=== PATIENT | female | born 1950 | race Caucasian/White ===

== ENCOUNTER 2017-12-24 21:44 | Inpatient (IN) ==
[2017-12-25] MEDS ORDERED: Potassium Chloride Elixir 20 MEQ/15 ML UDC PO ONE ×2 (00:17→01:53)
[2017-12-25] MEDS ORDERED: Naloxone 0.4 MG/ML INJ IVP PRN (00:20)
[2017-12-25] MEDS ORDERED: *HR* Heparin 5,000 UNIT/ML VIAL IVP PRN ×2 (00:22)
[2017-12-25] MEDS ORDERED: Heparin 25,000 UNIT/500 ML D5W 25,000 UNIT/500 ML BAG IVC SCH (00:30)
--- NOTE | 2017-12-25 00:38 | Internal Med History&Physical ---
Date of Encounter: 12/25/17 Time of Encounter: 12:15 Internal Medicine - H&P: HPI Chief complaint: SOB Admitted From: Home History of present illness: Ms. Felix is a 67 year old female with past history COPD on nocturnal oxygen and CAD s/p CABG in 1999, presented to the outside hospital emergency department with 5 day history of shortness of breath and cough. Progressively worsening, denies significant sputum production. No fever/chills or N/V. Associated with intermittent chest discomfort that was more pronounced with breathing and coughing. Sharp, substernal, non-radiating, no aggravating factors. Denies any palpitation, orthopnea, PND, or leg swelling. No GI/ symptoms. At the outside emergency department, she was afebrile and hemodynamically stable. Initial investigation showed elevated troponin of 0.7 and EKG showing normal sinus rhythm without ST-T changes. Hemoglobin was 8 (it appears to range from 8.8-13) but denies any melena, hematemesis, hematochezia, or bright red blood per rectum. CXR was reported to be clear (report yet to be faxed). Cardiology was consulted from the ED and the decision was made to start heparin drip in addition to noting the patient with aspirin. She was also noted to be slightly wheezy as well hence was given IV Solu-Medrol and bronchodilator. Patient was subsequently admitted to [facility] for further management. At the time of my interview, patient appears slightly somnolent but easily arousable and appropriate. It was noted that prior to the transfer she was given unknown dose of Flexeril. Past Med Surg Social Fam HX - Past Medical History Medical history: arthritis, cardiomyopathy, CHF, COPD, coronary artery disease, fibromyalgia, GERD, hyperlipidemia, hypertension, myocardial infarction, osteoporosis, RA, renal disease Additional medical history: irregular heart Psychiatric history: anxiety, depression, panic disorder, PTSD, other - Past Surgical History Surgical History: angioplasty/stent, , cholecystectomy, coronary bypass (CABG), knee replacement, orthopedic, other, pacemaker/AICD, other - Social History Smoking Status: Current some day smoker Packs per day: 1/2 Smokeless Tobacco Status: No Alcohol use: none Drug use: none Internal Medicine - H&P: Meds Albuterol Neb [Proventil Neb] 2.5 mg IH TID PRN 02/25/16 [History] Alprazolam [Xanax] 2 mg PO TID 02/25/16 [History] Aspirin 81 mg PO DAILY 02/25/16 [History] Cholecalciferol (D-3) [Vitamin D] 2,000 unit PO DAILY 02/25/16 [History] Clopidogrel [Plavix] 75 mg PO DAILY 02/25/16 [History] Colestipol HCl [Colestid] 2 gm PO BID 02/25/16 [History] Esomeprazole Magnesium [Nexium] 40 mg PO BID 02/25/16 [History] Fluticasone Propionate Nasal [Flonase] 50 mcg NS DAILY 02/25/16 [History] Fluticasone Propionate [Flovent Hfa] 2 puff IH BID 02/25/16 [History] GuaiFENesin/Dextromethorphan [Mucinex Dm ER 600-30 mg Tablet] 1 each PO Q12H PRN 02/25/16 [History] Ipratropium/Albuterol Sulfate [Combivent Respimat Inhal [place]] 2 puff IH DAILY 02/25/16 [History] Oxybutynin Chloride [Ditropan Xl] 10 mg PO DAILY 02/25/16 [History] Potassium Chloride [K-Tab ER] 20 meq PO DAILY 02/25/16 [History] Promethazine [Phenergan] 12.5 - 25 mg PO BID PRN 02/25/16 [History] Vitamin B Complex 1 tab PO DAILY 02/25/16 [History] hydroCHLOROthiazide [Hydrochlorothiazide] 25 mg PO DAILY 02/25/16 [History] OxyCODONE Immed Rel [Roxicodone 10 MG] 10 mg PO TID PRN #20 tablet 02/29/16 [Rx] predniSONE [PredniSONE] 10 mg PO DAILY #50 tablet 02/29/16 [Rx] Atorvastatin [Lipitor] 40 mg PO HS 04/27/16 [History] Cyanocobalamin (B-12) [Vitamin B12] 1,000 mcg PO DAILY 04/27/16 [History] Folic Acid 1 mg PO DAILY 04/27/16 [History] Lactose-Reduced Food [Boost] 237 ml PO TID 04/27/16 [History] Loratadine [Claritin] 10 mg PO DAILY 12/13/16 [History] [place]-3/Dha/Epa/Fish Oil [Fish Oil 1,000 mg Softgel] 1,000 mg PO DAILY 04/27/16 [History] cloNIDine HCl [CloNIDine HCl] 0.1 mg PO DAILY 04/27/16 [History] LORazepam [Ativan] 0.5 mg PO ONCE #4 tablet 06/10/16 [Rx] Ondansetron [Zofran] 4 mg PO Q8HR PRN #90 tablet 07/08/16 [Rx] OxyCODONE Immed Rel [Roxicodone 5 MG] 5 mg PO BID PRN #20 tablet 07/08/16 [Rx] 3 Allergy/AdvReac Type Severity Reaction Status Date / Time azithromycin Allergy See Verified 06/10/16 09:14 Comments clarithromycin [From Biaxin] Allergy See Verified 06/10/16 09:14 Comments fluconazole [From Diflucan] Allergy See Verified 06/10/16 09:14 Comments Hydromorphone [From Dilaudid] Allergy Hives Verified 06/10/16 09:14 Iodinated Contrast- Oral and Allergy See Verified 06/10/16 09:14 IV Dye Comments [Iodinated Contrast Media - IV Dye] morphine Allergy See Verified 06/10/16 09:14 Comments propoxyphene Allergy See Verified 06/10/16 09:14 [From Darvocet-N] Comments naproxen AdvReac See Verified 06/10/16 09:14 Comments All Systems PM: A 10-system review of systems was performed and is negative for pertinent findings except as documented above in the HPI. - Constitutional Vitals: Temp Pulse Resp BP Pulse Ox 98.3 F 86 18 138/72 97 12/24/17 23:45 12/24/17 23:45 12/24/17 23:45 12/24/17 23:45 12/24/17 23:45 Exam: General: Alert and oriented, somnolent but easily arousable HEENT:EOM, pupils equal, round and reactive. Cardiovascular:Normal S1 & S2, No JVD. Pulse regular. Lungs: scattered wheezes bilaterally Abdomen:Soft, non-tender, no rigidity. Extremities:No deformity or swelling Neurological: Non-focal, moving all 4 limbs spontaneously and appropriately Skin:Normal color, no rash, no lesions. Pulses:Carotid and radial pulses normal +2. Rest of the physical exam is non contributory - Assessment and plan (1) NSTEMI (non-ST elevated myocardial infarction) Current Visit: Yes Status: Acute Assessment and plan: Presented with progressive shortness of breath with intermittent chest pain, previous history of CABG in 1999 initial troponin elevated at 0.[address] elevation on EKG loaded with ASA at the ED cardiology on board, started heparin gtt per recommendation trend troponin bb, statin echocardiogram check A1c and lipid panel tomorrow (2) COPD exacerbation Current Visit: Yes Status: Acute Assessment and plan: in addition to her symptoms, had wheezing on exam without focal consolidation on CXR (verbal report only) continue to be wheezing here will repeat CXR steroids, bronchodilators Q4+PRN she was given flexeril at the OSH which is probably the reason for her mild somnolence but will check VBG to rule out hypercapnia (3) Anemia Current Visit: No Status: Acute Assessment and plan: wide range of Hb noted for the last 2 years but the most recent ones were in the range of 10-12 hemodynamically stable, no symptoms or signs of GIB but will get FOBT since she is on heparin gtt too monitor Hb Qualifiers: Anemia type: unspecified type Qualified Code(s): D64.9 - Anemia, unspecified (4) Hypokalemia Current Visit: No Status: Acute Assessment and plan: replete by mouth (5) DVT prophylaxis Current Visit: No Status: Acute Assessment and plan: heparin gtt - Time Spent With Patient Total time spent is greater than 50% in coordination of care (as documented) at patient's floor/unit and/or counseling patient:
[2017-12-25] MEDS ORDERED: Ipratropium/Albuterol Neb 3 ML IH PRN (00:43)
[2017-12-25] MEDS ORDERED: Furosemide 40 MG/4 ML VIAL IVP ONE (01:20)
[2017-12-25 01:38] LABS: Prothrombin Time 11.6 Seconds (9.4-12.1)
[2017-12-25 01:43] LABS: BUN/Creatinine Ratio 16 (6-26); Blood Urea Nitrogen 10 mg/dL (8-23); Carbon Dioxide 25 mEq/L (23-29); Chloride 93 mEq/L (98-107); Chol/HDL Ratio 2.4 (0-4.9); Cholesterol 136 mg/dL (< 200); Glucose 145 mg/dL (70-105); HDL Cholesterol 57 mg/dL (40-59); Heparin anti-factor XA UFH 1.08 IU/mL (0.30-0.70); LDL Cholesterol,Calculated 67 mg/dL (0-99); Magnesium 1.6 mg/dL (1.6-2.6); Osmolality,Calculated 268 (280-300); Potassium 3.4 mEq/L (3.5-5.1); Sodium 128 mEq/L (136-145); Triglycerides 62 mg/dL (< 150); eGFR For Non-African Americans > 60 (> 60)
[2017-12-25 01:43] LABS: VBG HCO3 28 mEq/L (21-27); VBG PCO2 37 mmHg (41-51); VBG PH 7.49 pH Units (7.32-7.42); VBG PO2 115 mmHg (25-50)
[2017-12-25 02:28] LABS: Basophils % 0.1 %; Hematocrit 28.3 % (35.3-44.9); Hemoglobin 8.4 g/dL (11.5-15.4); Immature Granulocytes % 0.6 % (0-4); Lymphocytes # 0.6 K/mcL (0.6-4.6); Lymphocytes % 4.1 %; Mean Corpuscular HGB Conc 29.7 g/dL (31.6-35.5); Mean Corpuscular Hemoglobin 23.3 pg (28.0-33.3); Mean Corpuscular Volume 78.6 fL (83.0-100.0); Mean Platelet Volume 9.5 fL (9.4-12.4); Monocytes # 0.1 K/mcL (0.0-1.3); Monocytes % 0.4 %; Neutrophils # 13.5 K/mcL (1.6-8.9); Platelet Count 437 K/mcL (140-400); Red Cell Distribution Width 19.9 % (11.5-14.5); Segmented Neutrophils % 94.8 %
[2017-12-25] MEDS: Ipratropium/Albuterol Neb 3 ML IH SCH ×6 (04:04→23:59)
[2017-12-25] MEDS ORDERED: Nitroglycerin 0.4 MG TAB.SUBL SL PRN (07:37)
[2017-12-25] MEDS ORDERED: Nitroglycerin 0.4 MG TAB.SUBL SL ONE (07:40)
[2017-12-25] MEDS: ALPRAZolam 1 MG TABLET PO SCH ×3 (08:27→20:56)
[2017-12-25] MEDS: Aspirin Enteric Coated 81 MG Tablet PO SCH (08:27)
[2017-12-25] MEDS: MethylPREDNISolone 40 MG/ML VIAL IVP SCH ×2 (08:27→21:06)
--- NOTE | 2017-12-25 09:51 | Cardiology Consult Note ---
Date of Encounter: 12/25/17 Time of Encounter: 09:50 Assessment and Plan (1) Elevated troponin Current Visit: Yes Status: Acute Troponin at [facility] 0.7. Troponins at [facility] 0.13, 0.10 in setting of anemia, COPD exacerbation. Demand ischemic vs NSTEMI. Pt tells me most of her pain is mid back pain--she is asking for pain medications and injections. States she intermittently has chest pain from her back. EKG without acute findings. On Heparin gtt, ASA, Statin. Unclear why pt is not on BB--reportedly stopped by PCP in the past. Would recommend adding BB prior to d/c. HGB 8.4--usually 10-12 range, but as low as 8.8 in 2016. Agree with FOB ordered by primary team. TTE to evaluate structure and function. Most recent TTE in 2016 EF was preserved. Further recs pending TTE results, FOB results, HGB trend. Medical management for now. (2) CAD (coronary artery disease) Current Visit: Yes Status: Acute Hx of 1v CABG (TEREZA-RCA) at [facility] with subsequent PCI to RCA. No recent ischemic evaluation. As above, TTE with further recs to follow. ASA, Statin. BB reportedly stopped by PCP in the past, unclear why. Currently being treated for COPD exacerbation. Recommend adding BB prior to d/c. Qualifiers: Coronary Disease-Associated Artery/Lesion type: [place] artery [place] vs. transplanted heart: [place] heart Associated angina: angina presence unspecified Qualified Code(s): I25.10 - Atherosclerotic heart disease of [place] coronary artery without angina pectoris Discussion w patient/family: The assessment and plan as outlined above was discussed with the patient and/or family members who expressed understanding and agreement. All questions were answered. Thank you for involving us in the care of your patient. Please call with any questions. I will discuss all the above with Dr. Curiel and make changes as necessary. History of Present Illness Consult date: 12/25/17 Consult reason: elevated troponin Chief complaint: dyspnea, chest pain, back pain History of present illness: Ms. Felix is a 67 year old female with PMH of CAD s/p 1v CABG (1999) & PCI ( 2003), SSS s/p PPM (2008), COPD, DMII, and GERD. Presented to [facility] in [place] for complaints of 2 weeks progressive dyspnea associated with constant mid back stabbing pain and intermittent chest discomfort that worsens with movement. Denies LE edema. Troponin at [facility] 0.7 and troponin at [facility] 0.13, 0.10. HGB 8.4 (Was 10.5 in September, but has been as low as 8.8 in 2016). Pt denies active bleeding issues. Cardiology consulted for further recs. Pt lying flat in bed, no distress. CXR Mild left basilar opacities, favored to represent atelectasis. Borderline cardiomegaly and pulmonary vascular congestion. Hiatal hernia. Hospitalist is treating for COPD exacerbation as well. Prior CV studies: TTE 08/26/06: LVEF 60%, mild-moderately dilated LA, mild TR TTE 01/14/08: LVEF 60%, mildly dilated LA, mild MR TTE 11/19/15: LVEF 60-65%. Moderate DD. Normal wall motion. Pacer check 12/24/15: normal dual chamber PPM, no events, battery longevity 5.7 years. Past Med Surg Social Fam HX - Past Medical History Medical history: arthritis, COPD, coronary artery disease, fibromyalgia, GERD, hyperlipidemia, hypertension, myocardial infarction, osteoporosis, RA, renal disease Additional medical history: irregular heart Psychiatric history: anxiety, depression, panic disorder, PTSD, other - Past Surgical History Surgical History: angioplasty/stent, , cholecystectomy, coronary bypass (CABG), knee replacement, orthopedic, other, pacemaker/AICD, other - Social History Smoking Status: Current some day smoker Packs per day: 1/2 Smokeless Tobacco Status: No Alcohol use: none Drug use: none Medications and Allergies Albuterol Neb [Proventil Neb] 2.5 mg IH TID PRN 02/25/16 [History] Alprazolam [Xanax] 2 mg PO TID 02/25/16 [History] Aspirin 81 mg PO DAILY 02/25/16 [History] Cholecalciferol (D-3) [Vitamin D] 2,000 unit PO DAILY 02/25/16 [History] Clopidogrel [Plavix] 75 mg PO DAILY 02/25/16 [History] Colestipol HCl [Colestid] 2 gm PO BID 02/25/16 [History] Fluticasone Propionate Nasal [Flonase] 50 mcg NS DAILY 02/25/16 [History] Ipratropium/Albuterol Sulfate [Combivent Respimat Inhal [place]] 2 puff IH DAILY 02/25/16 [History] Oxybutynin Chloride [Ditropan Xl] 10 mg PO DAILY 02/25/16 [History] hydroCHLOROthiazide [Hydrochlorothiazide] 25 mg PO DAILY 02/25/16 [History] Atorvastatin [Lipitor] 40 mg PO HS 04/27/16 [History] Cyanocobalamin (B-12) [Vitamin B12] 1,000 mcg PO DAILY 04/27/16 [History] Folic Acid 1 mg PO DAILY 04/27/16 [History] Lactose-Reduced Food [Boost] 237 ml PO TID 04/27/16 [History] Loratadine [Claritin] 10 mg PO DAILY 04/27/16 [History] [place]-3/Dha/Epa/Fish Oil [Fish Oil 1,000 mg Softgel] 1,000 mg PO DAILY 04/27/16 [History] cloNIDine HCl [CloNIDine HCl] 0.1 mg PO DAILY PRN 04/27/16 [History] ALPRAZolam [Xanax 1 MG Tablet] 1 - 2 mg PO DAILY PRN 12/25/17 [History] Cyclobenzaprine [Flexeril] 10 mg PO TID PRN 12/25/17 [History] Etanercept [Enbrel] 50 mg SQ QWEEK 12/25/17 [History] Gabapentin [Neurontin] 800 mg PO QID 12/25/17 [History] Lisinopril [Zestril] 5 mg PO DAILY 12/25/17 [History] Methotrexate Sodium/PF [Methotrexate 25 mg/ml Vial] 20 mg IM QWEEK 12/25/17 [ History] Mirtazapine [Remeron] 45 mg PO HS 12/25/17 [History] Pantoprazole Sodium [Protonix] 40 mg PO DAILY 12/25/17 [History] Paroxetine HCl [Paxil] 40 mg PO DAILY 12/25/17 [History] Potassium Chloride [K-Tab ER] 10 meq PO BID 12/25/17 [History] amLODIPine [Norvasc] 5 mg PO DAILY 12/25/17 [History] metFORMIN [Glucophage] 500 mg PO DAILY 12/25/17 [History] 3 Allergy/AdvReac Type Severity Reaction Status Date / Time azithromycin Allergy See Verified 06/10/16 09:14 Comments clarithromycin [From Biaxin] Allergy See Verified 06/10/16 09:14 Comments fluconazole [From Diflucan] Allergy See Verified 06/10/16 09:14 Comments Hydromorphone [From Dilaudid] Allergy Hives Verified 06/10/16 09:14 Iodinated Contrast- Oral and Allergy See Verified 06/10/16 09:14 IV Dye Comments [Iodinated Contrast Media - IV Dye] morphine Allergy See Verified 06/10/16 09:14 Comments propoxyphene Allergy See Verified 06/10/16 09:14 [From Darvocet-N] Comments naproxen AdvReac See Verified 06/10/16 09:14 Comments All Systems Review: The remainder of the systems were reviewed and are negative - Cardiovascular Cardiovascular: chest pain at rest, chest pain with exertion, dyspnea at rest, dyspnea on exertion - Respiratory Respiratory: dyspnea Physical Examination Vital Signs, Last 4 Hours Temp Pulse Resp BP Pulse Ox 12/25/17 07:26 16 113/64 94 12/25/17 06:56 98.1 F 82 18 113/64 94 Vital Signs Temp Pulse Resp BP Pulse Ox 12/25/17 07:26 16 113/64 94 12/25/17 06:56 98.1 F 82 18 113/64 94 12/25/17 04:27 98.1 F 75 18 109/73 95 12/25/17 04:07 16 100 12/24/17 23:45 98.3 F 86 18 138/72 97 Intake and Output 12/24/17 12/25/17 12/25/17 23:59 07:59 15:59 Intake Total 0 / 0 Output Total 0 / 0 Balance 0 / 0 Intake: IV Fluids Heparin 25,000 UNIT/500 ML D5W 25,000 unit In 500 ml @ 12 UNIT /KG/HR 15.785 mls/hr IVC .Q24H LATOSHA Rx#:[id number] Oral 0 / 0 Output: Urine 0 / 0 Other: # Voids 1 Weight 65.771 kg General: Conversant HEENT: Atraumatic, Normocephaly, Mucus Membranes Moist Neck: No JVD, Normal carotid pulses Cardiac: Reg Rate and Rhythm, Normal S1 and S2, No Murmur Lungs: Other (diminished) Neuro: Alert and responsive, No focal deficits noted Abdomen: Soft, Non-Tender Skin: No rashes noted on visualized skin Musculoskeletal: No Chest Wall Tenderness Extremities: No Clubbing, No Cyanosis, No Edema, Normal Pulses Results 12/25/17 01:11 12/25/17 01:11 Lab Results 12/25/17 12/25/17 12/25/17 01:11 01:11 01:11 WBC 14.3 H Hgb 8.4 L Hct 28.3 L Plt Count 437 H INR 1.0 Sodium Potassium Chloride Carbon Dioxide BUN Creatinine Glucose Calcium Magnesium Troponin I 0.13 H* B-Natriuretic Peptide 12/25/17 12/25/17 12/25/17 01:11 01:11 08:20 WBC Hgb Hct Plt Count INR Sodium 128 L Potassium 3.4 L Chloride 93 L Carbon Dioxide 25 BUN 10 Creatinine 0.62 Glucose 145 H Calcium 9.0 Magnesium 1.6 Troponin I 0.10 H* B-Natriuretic Peptide 99 Short CBC 12/25/17 Range/Units 01:11 WBC 14.3 H (4.3-11.1) K/mcL Hgb 8.4 L (11.5-15.4) g/dL Hct 28.3 L (35.3-44.9) % Plt Count 437 H (140-400) K/mcL Neutrophils # 13.5 H (1.6-8.9) K/mcL BMP 12/25/17 Range/Units 01:11 Sodium 128 L (136-145) mEq/L Potassium 3.4 L (3.5-5.1) mEq/L Chloride 93 L (98-107) mEq/L Carbon Dioxide 25 (23-29) mEq/L BUN 10 (8-23) mg/dL Creatinine 0.62 (0.60-1.20) mg/dL Glucose 145 H (70-105) mg/dL Calcium 9.0 (8.6-10.3) mg/dL Cardiac Enzymes 12/25/17 12/25/17 Range/Units 08:20 01:11 Troponin I 0.10 H* 0.13 H* (< 0.04) ng/mL Impressions Chest X-Ray 12/25/17 00:40 IMPRESSION: 1. Mild left basilar opacities, favored to represent atelectasis. 2. Borderline cardiomegaly and pulmonary vascular congestion. 3. Hiatal hernia. D/ / Sean Mckeon MD / Sean Mckeon MD Interpreting Provider: Sean Mckeon MD Active Medications Albuterol/Ipratropium (Duoneb) 3 ml IH [id number] LATOSHA Stop: 06/26/18 04:01 Last Admin: 12/25/17 07:26 Dose: 3 ml Albuterol/Ipratropium (Duoneb) 3 ml IH [id number] PRN PRN Reason: Shortness Of Breath/Wheezing Stop: 06/26/18 00:44 Alprazolam (Xanax) 2 mg PO TID LATOSHA Stop: 06/26/18 09:01 Last Admin: 12/25/17 08:27 Dose: 2 mg Aspirin (Aspirin Ec) 81 mg PO DAILY LATOSHA Stop: 06/26/18 09:01 Last Admin: 12/25/17 08:27 Dose: 81 mg Atorvastatin Calcium (Lipitor) 80 mg PO HS LATOSHA Stop: 06/26/18 21:01 Heparin Sodium (Porcine) (Heparin) 3,900 unit 60 unit/kg (3900 unit) IVP Q6HR PRN PRN Reason: SEE COMMENTS Stop: 06/26/18 00:23 Heparin Sodium (Porcine) (Heparin) 2,000 unit 30 unit/kg (2000 unit) IVP Q6H PRN PRN Reason: SEE COMMENTS Stop: 06/26/18 00:23 Heparin Sodium/Dextrose (Heparin 25,000 Unit/500 Ml D5w) 25,000 unit in 500 mls @ 15.785 mls/hr IVC .Q24H LATOSHA; 12 UNIT/KG/HR PRN Reason: Protocol Stop: 06/26/18 00:31 Last Titration: 12/25/17 09:37 Dose: 9 unit/kg/hr, 11.839 mls/hr Methylprednisolone (Solu-Medrol) 40 mg IVP BID LATOSHA Stop: 06/26/18 09:01 Last Admin: 12/25/17 08:27 Dose: 40 mg Naloxone HCl (Narcan) 0.4 mg IVP Q2MIN PRN PRN Reason: SEE COMMENTS Stop: 06/26/18 00:21 Nitroglycerin (Nitroglycerin) 0.4 mg SL Q5MIN PRN PRN Reason: Chest Pain Stop: 06/26/18 07:38 Last Admin: 12/25/17 07:43 Dose: 0.4 mg Oxycodone/Acetaminophen (Percocet 5/325) 1 each PO Q6HR PRN PRN Reason: Moderate Pain Stop: 06/26/18 08:04 - Imaging and Cardiology Echo: report reviewed - EKG Interpretation EKG results cardiology: personally reviewed Consult Discharge Plan - Plan Referrals: Franci Davenport, [employer] [Primary Care Provider] -
[2017-12-25] MEDS: Metoprolol XL (24 HR) Succ 25 MG TAB.ER.24H PO SCH (12:27)
[2017-12-25] MEDS: *HR* OxyCODONE/APAP 5/325 TABLET PO PRN ×2 (12:29→20:56)
[2017-12-25] MEDS ORDERED: Albuterol 2.5 MG/3 ML NEBULIZER IH PRN (13:18)
[2017-12-25] MEDS ORDERED: cloNIDine HCl 0.1 MG TABLET PO PRN (13:18)
[2017-12-25 13:49] LABS: Estimated Average Glucose 131 mg/dl; Hemoglobin A1C 6.2 %
[2017-12-25] MEDS ORDERED: NON-FORMULARY MEDICATION 1 EACH EACH (Lactose-Reduced Food [Boost] 237 ML) PO SCH (15:00)
--- NOTE | 2017-12-25 15:53 | Event Note ---
Date of Encounter: 12/25/17 Time of Encounter: 15:51 Chest pain improved after she received nitroglycerin this morning. Complains of intermittent pleuritic pain and severe back pain which is chronic for her. On examination she has tenderness in the right anterior chest wall over the lower ribs. Patient also appears to be having increasing anxiety. She does have a history of posttraumatic stress disorder. She reports cough. History of COPD/asthma. Does have leukocytosis. Will treat empirically with a short course of antibiotics for bronchitis. Cardiology consult appreciated. Troponins are flat. Heparin has been stopped due to anemia. We will check urine microscopy and culture if needed.
[2017-12-25] MEDS: *HR* Heparin 5,000 UNIT/ML VIAL SQ SCH ×2 (15:54→21:06)
[2017-12-25] MEDS: Gabapentin 400 MG CAPSULE PO SCH ×2 (17:04→20:56)
[2017-12-25] MEDS: Famotidine 20 MG TABLET PO SCH (17:04)
[2017-12-25] MEDS: Mirtazapine 15 MG TABLET PO SCH (20:56)
[2017-12-25] MEDS ORDERED: (Colestipol Hcl [Colestid] 2 GM) PO SCH (21:00)
[2017-12-26] MEDS: Ipratropium/Albuterol Neb 3 ML IH SCH ×6 (04:17→23:33)
[2017-12-26] MEDS: *HR* Heparin 5,000 UNIT/ML VIAL SQ SCH ×3 (06:08→21:46)
[2017-12-26] MEDS: ALPRAZolam 1 MG TABLET PO SCH ×3 (08:46→22:00)
[2017-12-26] MEDS: Loratadine 10 MG TABLET PO SCH (08:46)
[2017-12-26] MEDS: Gabapentin 400 MG CAPSULE PO SCH ×4 (08:47→22:00)
[2017-12-26] MEDS: Famotidine 20 MG TABLET PO SCH (08:47)
[2017-12-26] MEDS: MethylPREDNISolone 40 MG/ML VIAL IVP SCH (08:47)
[2017-12-26] MEDS: Cholecalciferol (D-3) 1,000 UNIT TABLET PO SCH (08:48)
[2017-12-26] MEDS: Cyanocobalamin (B-12) 1,000 MCG TABLET PO SCH (08:48)
[2017-12-26] MEDS: Folic Acid 1 MG TABLET PO SCH (08:48)
[2017-12-26] MEDS: Aspirin Enteric Coated 81 MG Tablet PO SCH (08:48)
[2017-12-26] MEDS: Fluticasone Propionate Nasal 50 MCG/SPRAY BOTTLE NS SCH (08:50)
[2017-12-26 08:55] LABS: Basophils % 0.1 %; Hematocrit 27.6 % (35.3-44.9); Hemoglobin 8.2 g/dL (11.5-15.4); Immature Granulocytes % 0.5 % (0-4); Lymphocytes # 0.6 K/mcL (0.6-4.6); Lymphocytes % 4.8 %; Mean Corpuscular HGB Conc 29.7 g/dL (31.6-35.5); Mean Corpuscular Hemoglobin 23.2 pg (28.0-33.3); Mean Corpuscular Volume 78.2 fL (83.0-100.0); Monocytes # 0.3 K/mcL (0.0-1.3); Monocytes % 2.3 %; Platelet Count 439 K/mcL (140-400); Red Blood Count 3.53 M/mcL (3.82-4.97); Segmented Neutrophils % 92.3 %
[2017-12-26] MEDS: *HR* OxyCODONE/APAP 5/325 TABLET PO PRN ×2 (08:57→21:57)
[2017-12-26] MEDS ORDERED: amLODIPine 5 MG TABLET PO SCH (09:00)
[2017-12-26 09:14] LABS: BUN/Creatinine Ratio 30 (6-26); Blood Urea Nitrogen 18 mg/dL (8-23); Calcium 8.8 mg/dL (8.6-10.3); Carbon Dioxide 31 mEq/L (23-29); Chloride 98 mEq/L (98-107); Potassium 4.6 mEq/L (3.5-5.1); Sodium 133 mEq/L (136-145); eGFR For Non-African Americans > 60 (> 60)
[2017-12-26 09:43] LABS: Glucose 150 mg/dL (70-105); Osmolality,Calculated 281 (280-300)
--- NOTE | 2017-12-26 09:50 | Cardiology Progress Note ---
Date of Encounter: 12/26/17 Time of Encounter: 09:48 Assessment and Plan (1) Elevated troponin Current Visit: Yes Status: Acute Troponin at [facility] 0.7. Troponins at [facility] 0.13, 0.10 in setting of anemia, COPD exacerbation. Demand ischemic vs NSTEMI. Currently CP free. Reports constant back pain continues. Heparin gtt stopped yesterday due to anemia and flat/downtrending troponins. On ASA, Statin. Unclear why pt is not on BB--reportedly stopped by PCP in the past. Would recommend adding BB prior to d/c. HGB 8.4 yesterday, 8.2 today--usually 10-12 range, but as low as 8.8 in 2016. Agree with FOB ordered by primary team. TTE EF preserved with normal wall motion, mild phtn. Discussed and reviewed with Dr. Reeves. Discussed stress test vs LHC. Pt declines stress test. Await FOB results. If FOB is negative and HGB remains stable, will plan for LHC tomorrow AM. (2) CAD (coronary artery disease) Current Visit: Yes Status: Acute Hx of 1v CABG (TEREZA-RCA) [place] [facility] [place] PCI to RCA. No recent ischemic evaluation. As above, TTE EF preserved. Possible LHC tomorrow. ASA, Statin. BB reportedly stopped by PCP in the past, unclear why. Currently being treated for COPD exacerbation. Recommend adding BB prior to d/c. Qualifiers: Coronary Disease-Associated Artery/Lesion type: [place] artery [place] vs. transplanted heart: cherokee heart Associated angina: angina presence unspecified Qualified Code(s): I25.10 - Atherosclerotic heart disease of [place] coronary artery without angina pectoris Discussion w patient/family: The assessment and plan as outlined above was discussed with the patient and/or family members who expressed understanding and agreement. All questions were answered. Thank you for involving us in the care of your patient. Please call with any questions. I will discuss all the above with Dr. Reeves and make changes as necessary. Subjective Principal diagnosis: Elevated troponin Interval history: TTE resulted--LVEF 65%. Normal LV chamber size, wall thickness and function. Mild pulmonary hypertension. No significant valvular dysfunction. Pt denies chest pain, continues to have constant back pain. HGB 8.2 today (8.4 yesterday). FOB not yet obtained. Objective Vital Signs, Last 4 Hours Temp Pulse Resp BP Pulse Ox 12/26/17 08:24 98.1 F 84 18 104/68 99 12/26/17 07:29 18 100 Vital Signs Temp Pulse Resp BP Pulse Ox 12/26/17 08:24 98.1 F 84 18 104/68 99 12/26/17 07:29 18 100 12/26/17 04:17 15 98 12/26/17 03:42 97.7 F 92 16 102/68 93 12/25/17 23:59 15 98 12/25/17 23:58 97.9 F 91 16 123/79 96 12/25/17 19:37 98.2 F 84 16 107/73 90 12/25/17 19:25 20 95 12/25/17 16:27 98.1 F 89 20 121/76 95 12/25/17 15:05 16 100/67 96 12/25/17 12:27 98.3 F 85 16 100/67 93 Intake and Output 12/25/17 12/26/17 12/26/17 23:59 07:59 15:59 Intake Total 0 / 0 Output Total 700 / 700 200 / 200 Balance -700 / -700 -200 / -200 0 / 0 Intake: Oral 0 / 0 Output: Urine 700 / 700 200 / 200 Other: Meal NPO Percent of Meal Consumed 0% Weight 66.4 kg Blood Glucose* 167 General: Conversant, No Apparent Distress HEENT: Atraumatic, Normocephaly, Mucus Membranes Moist Neck: No JVD, Normal carotid pulses Cardiac: Reg Rate and Rhythm, Normal S1 and S2, No Murmur Lungs: Other (diminished) Neuro: Alert and responsive, No focal deficits noted Abdomen: Soft, Non-Tender Skin: No rashes noted on visualized skin Musculoskeletal: No Chest Wall Tenderness Extremities: No Clubbing, No Cyanosis, No Edema, Normal Pulses Results 12/26/17 08:31 12/26/17 08:31 Lab Results 12/26/17 12/26/17 08:31 08:31 WBC 13.0 H Hgb 8.2 L Hct 27.6 L Plt Count 439 H Sodium 133 L Potassium 4.6 Chloride 98 Carbon Dioxide 31 H BUN 18 Creatinine 0.61 Glucose 150 H Calcium 8.8 Short CBC 12/26/17 Range/Units 08:31 WBC 13.0 H (4.3-11.1) K/mcL Hgb 8.2 L (11.5-15.4) g/dL Hct 27.6 L (35.3-44.9) % Plt Count 439 H (140-400) K/mcL Neutrophils # 12.0 H (1.6-8.9) K/mcL BMP 12/26/17 Range/Units 08:31 Sodium 133 L (136-145) mEq/L Potassium 4.6 (3.5-5.1) mEq/L Chloride 98 (98-107) mEq/L Carbon Dioxide 31 H (23-29) mEq/L BUN 18 (8-23) mg/dL Creatinine 0.61 (0.60-1.20) mg/dL Glucose 150 H (70-105) mg/dL Calcium 8.8 (8.6-10.3) mg/dL Impressions Echocardiogram 12/25/17 00:42 Impressions: LVEF 65%. Normal LV chamber size, wall thickness and function. Indeterminate diastolic function. Atypical septal motion consistent with post-operative status. Normal right ventricular structure and function. Mild pulmonary hypertension. No significant valvular dysfunction. Left Ventricular Wall Motion: Rest Echo Findings All wall segments showed normal motion. Findings: Study Quality * Technically adequate exam. ECG Findings * Normal sinus rhythm. Left Ventricle * LVEF 65%. * Normal LV chamber size, wall thickness and function. * Indeterminate diastolic function. * Atypical septal motion consistent with post-operative status. Right Ventricle * Normal right ventricular structure and function. Left Atrium * Mildly dilated left atrium. Right Atrium * Normal right atrial size. Aortic Valve * Trileaflet aortic valve. * No aortic regurgitation. * No aortic stenosis. Mitral Valve * Mildly thickened mitral valve leaflets. * No mitral stenosis. * No mitral regurgitation. Tricuspid Valve * Normal tricuspid valve structure and function. * Trace tricuspid regurgitation. * Mild pulmonary hypertension. Pulmonic Valve * Pulmonic valve is not well visualized. * No pulmonic regurgitation. Aorta * Normally sized aortic root. Pericardium * The pericardium appears normal. IVC * The IVC is not well evaluated. Pulmonary Artery * Normal visualized portions of the main pulmonary artery. Active Medications Albuterol Sulfate (Proventil Neb) 2.5 mg IH TID PRN; Protocol PRN Reason: Shortness Of Breath/Wheezing Stop: 06/26/18 13:19 Albuterol/Ipratropium (Duoneb) 3 ml IH [id number] [facility] Stop: 06/26/18 04:01 Last Admin: 12/26/17 07:29 Dose: 3 ml Alprazolam (Xanax) 2 mg PO TID [facility] Stop: 06/26/18 09:01 Last Admin: 12/26/17 08:46 Dose: 2 mg Amlodipine Besylate (Norvasc) 5 mg PO DAILY [facility] PRN Reason: Protocol Stop: 06/27/18 09:01 Aspirin (Aspirin Ec) 81 mg PO DAILY [facility] Stop: 06/26/18 09:01 Last Admin: 12/26/17 08:48 Dose: 81 mg Atorvastatin Calcium (Lipitor) 80 mg PO HS [facility] Stop: 06/26/18 21:01 Last Admin: 12/25/17 21:06 Dose: 80 mg Clonidine HCl (Clonidine Hcl) 0.1 mg PO DAILY PRN PRN Reason: Hypertension Stop: 06/26/18 13:19 Clopidogrel Bisulfate (Plavix) 75 mg PO DAILY [facility] Stop: 06/27/18 09:01 Last Admin: 12/26/17 08:48 Dose: 75 mg Cyanocobalamin (Vitamin B12) 1,000 mcg PO DAILY [facility] Stop: 06/27/18 09:01 Last Admin: 12/26/17 08:48 Dose: 1,000 mcg Cyclobenzaprine HCl (Flexeril) 10 mg PO TID PRN PRN Reason: Muscle Pain Stop: 06/26/18 13:19 Last Admin: 12/25/17 17:04 Dose: 10 mg Famotidine (Pepcid) 20 mg PO BID [facility] PRN Reason: Protocol Stop: 06/26/18 17:01 Last Admin: 12/26/17 08:47 Dose: 20 mg Fluticasone Propionate (Flonase) 50 mcg NS DAILY [facility] PRN Reason: Protocol Stop: 06/27/18 09:01 Last Admin: 12/26/17 08:50 Dose: 50 mcg Folic Acid (Folic Acid) 1 mg PO DAILY [facility] Stop: 06/27/18 09:01 Last Admin: 12/26/17 08:48 Dose: 1 mg Gabapentin (Neurontin) 800 mg PO QID [facility] Stop: 06/26/18 17:01 Last Admin: 12/26/17 08:47 Dose: 800 mg Heparin Sodium (Porcine) (Heparin) 5,000 unit SQ Q8HCO [facility] Stop: 06/26/18 14:01 Last Admin: 12/26/17 06:08 Dose: 5,000 unit Lisinopril (Zestril) 5 mg PO DAILY [facility] PRN Reason: Protocol Stop: 06/27/18 09:01 Loratadine (Claritin) 10 mg PO DAILY [facility] PRN Reason: Protocol Stop: 06/27/18 09:01 Last Admin: 12/26/17 08:46 Dose: 10 mg Methylprednisolone (Solu-Medrol) 40 mg IVP BID [facility] Stop: 06/26/18 09:01 Last Admin: 12/26/17 08:47 Dose: 40 mg Metoprolol Succinate (Toprol Xl) 25 mg PO DAILY [facility] Stop: 06/26/18 10:31 Last Admin: 12/25/17 12:27 Dose: Not Given Mirtazapine (Remeron) 45 mg PO HS [facility] Stop: 06/26/18 21:01 Last Admin: 12/25/17 20:56 Dose: 45 mg Naloxone HCl (Narcan) 0.4 mg IVP Q2MIN PRN PRN Reason: SEE COMMENTS Stop: 06/26/18 00:21 Nitroglycerin (Nitroglycerin) 0.4 mg SL Q5MIN PRN PRN Reason: Chest Pain Stop: 06/26/18 07:38 Last Admin: 12/25/17 07:43 Dose: 0.4 mg Omeprazole (Prilosec) 20 mg PO DAILY [facility] Stop: 06/27/18 09:01 Last Admin: 12/26/17 08:48 Dose: 20 mg Oxybutynin Chloride (Ditropan) 5 mg PO BID [facility] Stop: 06/27/18 09:01 Last Admin: 12/26/17 08:47 Dose: 5 mg Oxycodone/Acetaminophen (Percocet 5/325) 1 each PO Q6HR PRN PRN Reason: Moderate Pain Stop: 06/26/18 08:04 Last Admin: 12/26/17 08:57 Dose: 1 each Paroxetine HCl (Paxil) 40 mg PO DAILY [facility] Stop: 06/27/18 09:01 Last Admin: 12/26/17 09:02 Dose: 40 mg Potassium Chloride (Potassium Chloride) 10 meq PO BIDWM [facility] Stop: 06/26/18 17:01 Last Admin: 12/26/17 08:48 Dose: 10 meq Vitamin D (Vitamin D) 1,000 unit PO DAILY [facility] Stop: 06/27/18 09:01 Last Admin: 12/26/17 08:48 Dose: 1,000 unit - Imaging and Cardiology Echo: report reviewed - EKG Interpretation EKG results cardiology: other (12 hr tele AVG HR 88, SR, no significant pauses or arrhythmias noted.) - VTE Documentation of Mechanical Device: Intermittent pneumatic compression device Consult Discharge Plan - Plan Referrals: Franci Davenport, [employer] [Primary Care Provider] -
[2017-12-26] MEDS: Metoprolol XL (24 HR) Succ 25 MG TAB.ER.24H PO SCH (09:53)
[2017-12-26] MEDS ORDERED: *HR* Dextrose 50 % in Water (Syg) 50 ML SYRINGE IVP PRN (10:31)
[2017-12-26] MEDS ORDERED: Dextrose Gel 15 GM/37.5 ML TUBE PO PRN ×2 (10:31)
[2017-12-26] MEDS ORDERED: D5% in Water 1,000 ML IVC PRN (10:31)
[2017-12-26] MEDS: Insulin LISPRO 300 UNITS/3 ML VIAL SQ SCH ×3 (13:18→22:00)
--- NOTE | 2017-12-26 15:02 | Internal Med Progress Note ---
Hospitalist Progress Note - Encounter Date of Encounter: 12/26/17 Time of Encounter: 15:00 - Subjective Interval History: Patient hospitalized initially with chest pain. Pain improved after she received nitroglycerin but now complaining mainly of back pain and pleuritic chest wall pain. Back pain is chronic related to degenerative disc disease. Did have a rise in troponin to a peak of 0.13. Cardiology consult. Started on heparin initially but held as patient was anemic and troponins did not rise up much further. 2-D echocardiogram done yesterday showed normal ejection fraction. Cardiology plans for left heart catheterization tomorrow provided patient's hemoglobin remained stable. Patient also complaining of cough and diagnosed with bronchitis. Treated with Levaquin and prednisone along with bronchodilators. Continues to complain of back pain and pleuritic chest wall pain along with cough. No sputum production. No fever reported overnight. - Exam Vitals: Temp Pulse Resp BP Pulse Ox 97.8 F 79 18 93/63 98 12/26/17 11:44 12/26/17 11:44 12/26/17 11:44 12/26/17 11:44 12/26/17 11:44 Exam: General: Patient is alert, no acute distress, oriented x 3 Head: atraumatic, normocephalic, Eye: normal appearance, PERRL, no scleral icterus, no conjunctival injection Neck: normal inspection, trachea midline, full ROM, no carotid bruits Chest: normal inspection, symmetric chest rise, right lower chest wall tenderness over her ribs Respiratory: Minimal wheezing bilaterally. Decreased breath sounds at both bases. Cardiovascular: Regular rate and rhythm. s1 and s2 No clicks, rubs, gallops, or murmurs. No pedal edema Abdomen: Abdomen is soft, nontender. Bowel sounds are present Musculoskeletal: Spontaneously moving all extremities;tenderness and is paraspinal and thoracic spine region. Skin: warm, dry, intact. Neuro: Alert oriented x 3 normal cranial nerves, no focal deficits Psych: Patient is very anxious - Assessment and Plan (1) NSTEMI (non-ST elevated myocardial infarction) Current Visit: Yes Status: Suspected Assessment and Plan: Troponins have flattened. Now downtrending. Continue management per cardiology recommendations. On aspirin, statin and Plavix. Plan for left heart catheterization tomorrow provided hemoglobin levels remained stable and fecal occult blood negative. Currently no substernal chest pain. Moderate risk for complications. (2) Anemia Current Visit: Yes Status: Acute Assessment and Plan: Acute on chronic. Patient does appear to have chronic anemia but worsened currently. However stable since yesterday. Checking stool for occult blood. We will continue to monitor hemoglobin levels. Check folic acid, B12 and iron profile. (3) COPD exacerbation Current Visit: Yes Status: Acute Assessment and Plan: With acute bronchitis. On bronchodilators, steroids and Levaquin. DC Solu- Medrol. Start prednisone Continue current management. O2 supplementation as needed (4) Hypokalemia Current Visit: Yes Status: Resolved (5) DVT prophylaxis Current Visit: Yes Status: Acute Assessment and Plan: On heparin SQ - Time Spent with Patient Total time spent is greater than 50% in coordination of care (as documented) at patient's floor/unit and/or counseling patient: Plan of Care Discussed with: patient Internal Medicine: Result - Labs CBC & Chem 7: 12/26/17 08:31 12/26/17 08:31 Labs: Short CBC 12/26/17 Range/Units 08:31 WBC 13.0 H (4.3-11.1) K/mcL Hgb 8.2 L (11.5-15.4) g/dL Hct 27.6 L (35.3-44.9) % Plt Count 439 H (140-400) K/mcL Neutrophils # 12.0 H (1.6-8.9) K/mcL BMP 12/26/17 08:31 Sodium 133 L Potassium 4.6 Chloride 98 Carbon Dioxide 31 H BUN 18 Creatinine 0.61 Glucose 150 H Calcium 8.8 - ABG Interpretation ABG results: PT/INR, D-dimer PT 11.6 Seconds (9.4-12.1) 12/25/17 01:11 - VTE Documentation of Mechanical Device: Intermittent pneumatic compression device Consult Discharge Plan - Plan Referrals: Franci Davenport, ELECT[employer]IC [employer]ER [Primary Care Provider] - (2) Anemia Qualifiers: Anemia type: unspecified type Qualified Code(s): D64.9 - Anemia, unspecified
[2017-12-26] MEDS ORDERED: GuaiFENesin Liq 200 MG/10 ML UDC PO PRN (16:08)
[2017-12-26] MEDS: levoFLOXacin 500 MG TABLET PO SCH (17:10)
[2017-12-26] MEDS: Mirtazapine 15 MG TABLET PO SCH (21:57)
[2017-12-26 22:26] LABS: Bilirubin,Urine Negative (Negative); Blood,Urine Negative (Negative); Clarity,Urine Cloudy (Clear); Color,Urine Yellow (Yellow); Glucose,Urine (UA) Normal (Normal); Ketones,Urine Negative (Negative); Leukocyte Esterase,Urine Small (Negative); Nitrite,Urine Negative (Negative); PH,Urine 6.5 pH Units (5.0-8.0); Protein,Urine Negative (Neg-Trace); Specific Gravity,Urine 1.015 (1.010-1.025); Urobilinogen,Urine Normal (Normal)
[2017-12-26 22:31] LABS: Bacteria,Urine Few per hpf (None-Few); Hyaline Casts,Urine None Seen per lpf (None-Few); Squamous Epithelial Cell,Urine Many per lpf (None-Few)
[2017-12-26 22:41] LABS: Yeast,Urine Few per hpf (None Seen)
[2017-12-27] MEDS: Ipratropium/Albuterol Neb 3 ML IH SCH ×6 (04:08→23:27)
[2017-12-27] MEDS: *HR* Heparin 5,000 UNIT/ML VIAL SQ SCH ×3 (06:24→22:31)
[2017-12-27 07:27] LABS: Basophils % 0.1 %; Eosinophils % 0.1 %; Hematocrit 25.3 % (35.3-44.9); Hemoglobin 7.5 g/dL (11.5-15.4); Immature Granulocytes % 0.4 % (0-4); Lymphocytes % 18.1 %; Mean Corpuscular HGB Conc 29.6 g/dL (31.6-35.5); Mean Corpuscular Hemoglobin 22.7 pg (28.0-33.3); Mean Corpuscular Volume 76.7 fL (83.0-100.0); Mean Platelet Volume 9.3 fL (9.4-12.4); Monocytes # 0.6 K/mcL (0.0-1.3); Monocytes % 3.4 %; Neutrophils # 12.6 K/mcL (1.6-8.9); Platelet Count 417 K/mcL (140-400); Segmented Neutrophils % 77.9 %
[2017-12-27] MEDS: Insulin LISPRO 300 UNITS/3 ML VIAL SQ SCH ×4 (07:28→22:31)
[2017-12-27 07:45] LABS: BUN/Creatinine Ratio 23 (6-26); Blood Urea Nitrogen 17 mg/dL (8-23); Calcium 8.7 mg/dL (8.6-10.3); Carbon Dioxide 29 mEq/L (23-29); Chloride 102 mEq/L (98-107); Glucose 95 mg/dL (70-105); Osmolality,Calculated 281 (280-300); Potassium 4.8 mEq/L (3.5-5.1); Sodium 135 mEq/L (136-145); eGFR For Non-African Americans > 60 (> 60)
[2017-12-27] MEDS: Loratadine 10 MG TABLET PO SCH (07:50)
[2017-12-27] MEDS: levoFLOXacin 500 MG TABLET PO SCH (07:51)
[2017-12-27] MEDS: Aspirin Enteric Coated 81 MG Tablet PO SCH (07:51)
[2017-12-27] MEDS: Metoprolol XL (24 HR) Succ 25 MG TAB.ER.24H PO SCH (07:51)
[2017-12-27] MEDS: ALPRAZolam 1 MG TABLET PO SCH ×3 (07:51→22:31)
[2017-12-27] MEDS: Gabapentin 400 MG CAPSULE PO SCH ×4 (07:51→22:30)
[2017-12-27] MEDS: predniSONE 20 MG TABLET PO SCH (07:51)
[2017-12-27] MEDS: Fluticasone Propionate Nasal 50 MCG/SPRAY BOTTLE NS SCH (07:52)
[2017-12-27 08:09] LABS: Folate 13.7 ng/mL (3.0-16.0)
[2017-12-27 08:17] LABS: Ferritin < 8 ng/mL (10-120); Iron < 10 mcg/dL (50-170); Transferrin 369 mg/dL (203-362)
[2017-12-27] MEDS ORDERED: levoFLOXacin 250 MG TABLET PO ONE (09:20)
--- NOTE | 2017-12-27 10:26 | Cardiology Progress Note ---
Date of Encounter: 12/27/17 Time of Encounter: 10:24 Assessment and Plan (1) Elevated troponin Current Visit: Yes Status: Acute Troponin at [facility] 0.7. Troponins at [facility] 0.13, 0.10 in setting of anemia, COPD exacerbation. Demand ischemic vs NSTEMI. Main complaint has been back pain. Heparin gtt stopped 12/25 due to anemia and flat/downtrending troponins. On ASA, Statin, BB. HGB 8.4 on admission, has continued to downtrend and is 7.5 today--usually 10- 12 range. FOB not resulted. TTE EF preserved with normal wall motion, mild phtn. Discussed and reviewed with Dr. Reeves. Since HGB continues to downtrend recommend GI evaluation to r/o bleeding prior to invasive cardiac evaluation. Cardiology signing off. Please reconsult once evaluated by GI and if she is candidate for LHC. (2) CAD (coronary artery disease) Current Visit: Yes Status: Acute Hx of 1v CABG (TEREZA-RCA) at [facility] [place] with subsequent PCI to RCA. No recent ischemic evaluation. As above, TTE EF preserved. Possible LHC tomorrow. ASA, Statin, BB. Qualifiers: Coronary Disease-Associated Artery/Lesion type: [place] artery [place] vs. transplanted heart: [place] heart Associated angina: angina presence unspecified Qualified Code(s): I25.10 - Atherosclerotic heart disease of [place] coronary artery without angina pectoris Discussion w patient/family: The assessment and plan as outlined above was discussed with the patient and/or family members who expressed understanding and agreement. All questions were answered. Thank you for involving us in the care of your patient. Please call with any questions. I will discuss all the above with Dr. Reeves and make changes as necessary. Subjective Principal diagnosis: Elevated troponin Interval history: HGB continues to decline--was 8.4 on admission, 7.5 today. FOB not yet resulted. Pt sleeping, difficult to arouse, reports CP, unable to rate. Objective Vital Signs, Last 4 Hours Temp Pulse Resp BP Pulse Ox 12/27/17 07:45 104/62 12/27/17 07:15 98.7 F 70 16 88/56 100 Vital Signs Temp Pulse Resp BP Pulse Ox 12/27/17 07:45 104/62 12/27/17 07:15 98.7 F 70 16 88/56 100 08/14/18 04:21 98.2 F 67 16 88/55 96 12/27/17 04:08 16 98 12/27/17 00:26 97.8 F 77 16 93/61 96 12/26/17 23:35 16 99 12/26/17 22:06 98 12/26/17 20:00 98.2 F 78 16 90/59 99 12/26/17 18:55 97 12/26/17 16:41 98.8 F 86 18 98/61 97 12/26/17 15:54 18 97 12/26/17 11:44 97.8 F 79 18 93/63 98 12/26/17 11:23 16 98 Intake and Output 12/26/17 12/27/17 12/27/17 23:59 07:59 15:59 Output Total 600 / 600 700 / 700 Balance -600 / -600 -700 / -700 Output: Urine 600 / 600 700 / 700 Other: Meal NPO Weight 66 kg Blood Glucose* 197 106 Patient Weight 12/27/17 23:59 Weight 66 kg General: Conversant, No Apparent Distress HEENT: Atraumatic, Normocephaly, Mucus Membranes Moist Neck: No JVD, Normal carotid pulses Cardiac: Reg Rate and Rhythm, Normal S1 and S2, No Murmur Lungs: Other (diminished) Neuro: Alert and responsive, No focal deficits noted Abdomen: Soft, Non-Tender Skin: No rashes noted on visualized skin Musculoskeletal: No Chest Wall Tenderness Extremities: No Clubbing, No Cyanosis, No Edema, Normal Pulses Results 12/27/17 07:11 12/27/17 07:11 Lab Results 12/27/17 12/27/17 07:11 07:11 WBC 16.3 H Hgb 7.5 L Hct 25.3 L Plt Count 417 H Sodium 135 L Potassium 4.8 Chloride 102 Carbon Dioxide 29 BUN 17 Creatinine 0.75 Glucose 95 Calcium 8.7 Short CBC 12/27/17 Range/Units 07:11 WBC 16.3 H (4.3-11.1) K/mcL Hgb 7.5 L (11.5-15.4) g/dL Hct 25.3 L (35.3-44.9) % Plt Count 417 H (140-400) K/mcL Neutrophils # 12.6 H (1.6-8.9) K/mcL BMP 12/27/17 Range/Units 07:11 Sodium 135 L (136-145) mEq/L Potassium 4.8 (3.5-5.1) mEq/L Chloride 102 (98-107) mEq/L Carbon Dioxide 29 (23-29) mEq/L BUN 17 (8-23) mg/dL Creatinine 0.75 (0.60-1.20) mg/dL Glucose 95 (70-105) mg/dL Calcium 8.7 (8.6-10.3) mg/dL Urine 12/26/17 Range/Units 21:59 Urine Color Yellow (Yellow) Urine Clarity Cloudy A (Clear) Urine pH 6.5 (5.0-8.0) pH Units Ur Specific [place] 1.015 (1.010-1.025) Urine Protein Negative (Neg-Trace) mg/dL Urine Glucose (UA) Normal (Normal) mg/dL Active Medications Albuterol Sulfate (Proventil Neb) 2.5 mg IH TID PRN; Protocol PRN Reason: Shortness Of Breath/Wheezing Stop: 06/26/18 13:19 Albuterol/Ipratropium (Duoneb) 3 ml IH [id number] [facility] Stop: 06/26/18 04:01 Last Admin: 12/27/17 07:35 Dose: 3 ml Alprazolam (Xanax) 2 mg PO TID [facility] Stop: 06/26/18 09:01 Last Admin: 12/27/17 07:51 Dose: 2 mg Amlodipine Besylate (Norvasc) 5 mg PO DAILY [facility] PRN Reason: Protocol Stop: 06/27/18 09:01 Last Admin: 12/26/17 09:53 Dose: 5 mg Aspirin (Aspirin Ec) 81 mg PO DAILY [facility] Stop: 06/26/18 09:01 Last Admin: 12/27/17 07:51 Dose: 81 mg Atorvastatin Calcium (Lipitor) 80 mg PO HS [facility] Stop: 06/26/18 21:01 Last Admin: 12/26/17 21:46 Dose: 80 mg Bisacodyl (Dulcolax) 10 mg PO DAILY PRN PRN Reason: Constipation Stop: 06/27/18 15:07 Clonidine HCl (Clonidine Hcl) 0.1 mg PO DAILY PRN PRN Reason: Hypertension Stop: 06/26/18 13:19 Clopidogrel Bisulfate (Plavix) 75 mg PO DAILY [facility] Stop: 06/27/18 09:01 Last Admin: 12/27/17 07:51 Dose: 75 mg Cyanocobalamin (Vitamin B12) 1,000 mcg PO DAILY [facility] Stop: 06/27/18 09:01 Last Admin: 12/26/17 08:48 Dose: 1,000 mcg Cyclobenzaprine HCl (Flexeril) 10 mg PO TID PRN PRN Reason: Muscle Pain Stop: 06/26/18 13:19 Last Admin: 12/25/17 17:04 Dose: 10 mg Dextrose/Water (Dextrose 50% (Syg)) 25 ml IVP AD PRN PRN Reason: Hypoglycemia Stop: 06/27/18 10:32 Docusate Sodium (Colace) 100 mg PO BID PRN; Protocol PRN Reason: Constipation Stop: 06/27/18 15:07 Fluticasone Propionate (Flonase) 50 mcg NS DAILY [facility] PRN Reason: Protocol Stop: 06/27/18 09:01 Last Admin: 12/27/17 07:52 Dose: 50 mcg Folic Acid (Folic Acid) 1 mg PO DAILY [facility] Stop: 06/27/18 09:01 Last Admin: 12/26/17 08:48 Dose: 1 mg Gabapentin (Neurontin) 800 mg PO QID [facility] Stop: 06/26/18 17:01 Last Admin: 12/27/17 07:51 Dose: 800 mg Glucagon (Glucagen) 1 mg IM ONCE PRN PRN Reason: Hypoglycemia Stop: 06/27/18 10:32 Glucose (Gluctose) 15 gm PO ONCE PRN PRN Reason: Hypoglycemia Stop: 06/27/18 10:32 Glucose (Gluctose) 30 gm PO ONCE PRN PRN Reason: Hypoglycemia Stop: 06/27/18 10:32 Guaifenesin (Robitussin Liq) 200 mg PO Q6HR PRN PRN Reason: Cough Stop: 06/27/18 16:09 Heparin Sodium (Porcine) (Heparin) 5,000 unit SQ Q8HCO [facility] Stop: 06/26/18 14:01 Last Admin: 12/27/17 06:24 Dose: 5,000 unit Dextrose (Dextrose 5%) 1,000 mls @ 100 mls/hr IVC .Q10H PRN PRN Reason: HYPOGLYCEMIA Stop: 06/27/18 10:32 Insulin Human Lispro (Humalog) 0 units SQ HS [facility] PRN Reason: Protocol Stop: 06/27/18 21:01 Last Admin: 12/26/17 22:00 Dose: Not Given Insulin Human Lispro (Humalog) 0 units SQ TIDAC [facility] PRN Reason: Protocol Stop: 06/27/18 11:31 Last Admin: 12/27/17 07:28 Dose: Not Given Levofloxacin (Levaquin) 750 mg PO DAILY [facility] Stop: 01/01/18 09:01 Lisinopril (Zestril) 5 mg PO DAILY [facility] PRN Reason: Protocol Stop: 06/27/18 09:01 Last Admin: 12/26/17 09:53 Dose: 5 mg Loratadine (Claritin) 10 mg PO DAILY [facility] PRN Reason: Protocol Stop: 06/27/18 09:01 Last Admin: 12/27/17 07:50 Dose: 10 mg Metoprolol Succinate (Toprol Xl) 25 mg PO DAILY [facility] Stop: 06/26/18 10:31 Last Admin: 12/27/17 07:51 Dose: 25 mg Mirtazapine (Remeron) 45 mg PO HS [facility] Stop: 06/26/18 21:01 Last Admin: 12/26/17 21:57 Dose: 45 mg Naloxone HCl (Narcan) 0.4 mg IVP Q2MIN PRN PRN Reason: SEE COMMENTS Stop: 06/26/18 00:21 Nitroglycerin (Nitroglycerin) 0.4 mg SL Q5MIN PRN PRN Reason: Chest Pain Stop: 06/26/18 07:38 Last Admin: 12/25/17 07:43 Dose: 0.4 mg Omeprazole (Prilosec) 20 mg PO DAILY [facility] Stop: 06/27/18 09:01 Last Admin: 12/27/17 07:51 Dose: 20 mg Oxybutynin Chloride (Ditropan) 5 mg PO BID [facility] Stop: 06/27/18 09:01 Last Admin: 12/27/17 07:51 Dose: 5 mg Oxycodone/Acetaminophen (Percocet 5/325) 1 each PO Q6HR PRN PRN Reason: Moderate Pain Stop: 06/26/18 08:04 Last Admin: 12/26/17 21:57 Dose: 1 each Paroxetine HCl (Paxil) 40 mg PO DAILY [facility] Stop: 06/27/18 09:01 Last Admin: 12/27/17 07:51 Dose: 40 mg Potassium Chloride (Potassium Chloride) 10 meq PO BIDWM [facility] Stop: 06/26/18 17:01 Last Admin: 12/26/17 17:10 Dose: 10 meq Prednisone (Prednisone) 40 mg PO DAILY [facility] PRN Reason: Taper Stop: 01/04/18 08:59 Last Admin: 12/27/17 07:51 Dose: 40 mg Vitamin D (Vitamin D) 1,000 unit PO DAILY [facility] Stop: 06/27/18 09:01 Last Admin: 12/26/17 08:48 Dose: 1,000 unit - Imaging and Cardiology Echo: report reviewed - EKG Interpretation EKG results cardiology: other (12 hr tele AVG HR 73, SR, no signficant pauses or arrhythmias) - VTE Documentation of Mechanical Device: Intermittent pneumatic compression device Consult Discharge Plan - Plan Referrals: Franci Davenport, IMAGERY ANALYST [Primary Care Provider] -
[2017-12-27] MEDS: Cyanocobalamin (B-12) 1,000 MCG TABLET PO SCH (11:18)
[2017-12-27] MEDS: Folic Acid 1 MG TABLET PO SCH (11:18)
[2017-12-27] MEDS: *HR* OxyCODONE/APAP 5/325 TABLET PO PRN (11:18)
[2017-12-27] MEDS: Cholecalciferol (D-3) 1,000 UNIT TABLET PO SCH (11:18)
[2017-12-27 17:10] LABS: Hematocrit 24.5 % (35.3-44.9); Hemoglobin 7.2 g/dL (11.5-15.4)
[2017-12-27] MEDS ORDERED: SODIUM CHLORIDE/NAHCO3/KCL/PEG 4,000 ML SOLN.RECON PO ONE (17:28)
--- NOTE | 2017-12-27 22:08 | Internal Med Progress Note ---
Hospitalist Progress Note - Encounter Date of Encounter: 12/27/17 Time of Encounter: 19:00 - Exam Vitals: Temp Pulse Resp BP Pulse Ox 97.8 F 73 16 112/73 99 12/27/17 21:06 12/27/17 21:06 12/27/17 21:06 12/27/17 21:06 12/27/17 21:06 Exam: xxx - Assessment and Plan (1) Chest pain Current Visit: Yes Status: Acute (2) COPD exacerbation Current Visit: Yes Status: Acute (3) Elevated troponin Current Visit: Yes Status: Acute (4) Anemia Current Visit: Yes Status: Acute (5) CAD (coronary artery disease) Current Visit: Yes Status: Acute DVT Prophylaxis: SQ heparin - Summary of Assessment and Plan Summary of Assessment and Plan: SUBJECTIVE The patient continues to have right-sided chest pain. It is worse with some body positions in bed. It is worse with deep breathing. The pain seems to be originating in the mid back; spreading to the lower portion of her right chest. Her breathing seems to be better. She denies resting dyspnea. She is on room air oxygen. She does have mild cough but not wheezing. Denies abdominal pain, nausea and vomiting. She has normal urination. OBJECTIVE: Skin: Free of rash and discoloration. ENMT: Oral/pharyngeal mucosa is normal in appearance. Eyes: Sclera is white. There is no discharge from eyes. Respiratory: Normal breath sounds; no crackles or wheezes. CV: Heart is regular; no gallop or murmur. GI: Abdomen is soft and not tender. There is no palpable mass or visceromegaly. Neuro: There is no focal deficits. ASSESSMENT AND PLAN: Chest pain/elevated troponin in a patient with coronary artery disease. The patient does carry for coronary stents. The chest pain is not typical. It seems to be more mid back pain rather than chest pain. Elevated troponin could be resulting from demand ischemia. She is treated for COPD exacerbation. Cardiology signed off. They want this patient to be evaluated for GI bleeding. She has developed her anemia. Her hemoglobin in September was 10.5. It was 8.4 at admission; it is 7.5 today. We will consult the GI diseases. Her IV heparin used at admission his on hold. - Time Spent with Patient Total time spent is greater than 50% in coordination of care (as documented) at patient's floor/unit and/or counseling patient: 25 - 35 minutes Plan of Care Discussed with: patient Internal Medicine: Result - Labs CBC & Chem 7: 12/28/17 05:59 12/27/17 07:11 Labs: Short CBC 12/27/17 12/27/17 Range/Units 07:11 16:57 WBC 16.3 H (4.3-11.1) K/mcL Hgb 7.5 L 7.2 L (11.5-15.4) g/dL Hct 25.3 L 24.5 L (35.3-44.9) % Plt Count 417 H (140-400) K/mcL Neutrophils # 12.6 H (1.6-8.9) K/mcL BMP 12/27/17 07:11 Sodium 135 L Potassium 4.8 Chloride 102 Carbon Dioxide 29 BUN 17 Creatinine 0.75 Glucose 95 Calcium 8.7 Urine 12/26/17 Range/Units 21:59 Urine Color Yellow (Yellow) Urine Clarity Cloudy A (Clear) Urine pH 6.5 (5.0-8.0) pH Units Ur Specific [place] 1.015 (1.010-1.025) Urine Protein Negative (Neg-Trace) mg/dL Urine Glucose (UA) Normal (Normal) mg/dL - ABG Interpretation ABG results: PT/INR, D-dimer PT 11.6 Seconds (9.4-12.1) 12/25/17 01:11 - Impressions Impressions Abdomen/Pelvis CT 12/27/17 11:11 IMPRESSION: No acute findings are seen to the abdomen or pelvis. No evidence for hemorrhage. Trace left pleural effusion. Mild consolidation to bilateral lower lobes, left more than right, felt most likely to reflect some scarring and/or atelectasis. Multifocal infiltrates or aspiration pneumonitis could have a similar appearance. Stable large hiatal hernia. D/ / 12/27/2017 12:31:45 Spike Luevano MD / luciano Interpreting Provider: Spike Luevano MD - VTE Documentation of Mechanical Device: Intermittent pneumatic compression device Consult Discharge Plan - Plan Referrals: Franci Davenport, CLINICAL PSYCHOLOGY TEACHER [Primary Care Provider] - (1) Chest pain Qualifiers: Chest pain type: other chest pain Qualified Code(s): R07.89 - Other chest pain; R07.8 - Other chest pain (4) Anemia Qualifiers: Anemia type: unspecified type Qualified Code(s): D64.9 - Anemia, unspecified (5) CAD (coronary artery disease) Qualifiers: Coronary Disease-Associated Artery/Lesion type: [place] artery [place] vs. transplanted heart: [place] heart Associated angina: angina presence unspecified Qualified Code(s): I25.10 - Atherosclerotic heart disease of [place] coronary artery without angina pectoris
[2017-12-27] MEDS: Mirtazapine 15 MG TABLET PO SCH (22:30)
[2017-12-28] MEDS: Ipratropium/Albuterol Neb 3 ML IH SCH ×6 (04:02→23:00)
[2017-12-28] MEDS: *HR* Heparin 5,000 UNIT/ML VIAL SQ SCH ×2 (06:13→15:28)
[2017-12-28 06:17] LABS: Basophils % 0.1 %; Eosinophils % 0.2 %; Hematocrit 27.7 % (35.3-44.9); Hemoglobin 8.1 g/dL (11.5-15.4); Immature Granulocytes % 0.5 % (0-4); Lymphocytes # 2.6 K/mcL (0.6-4.6); Lymphocytes % 17.7 %; Mean Corpuscular HGB Conc 29.2 g/dL (31.6-35.5); Mean Corpuscular Hemoglobin 22.9 pg (28.0-33.3); Mean Corpuscular Volume 78.5 fL (83.0-100.0); Monocytes # 0.7 K/mcL (0.0-1.3); Monocytes % 4.9 %; Neutrophils # 11.2 K/mcL (1.6-8.9); Platelet Count 476 K/mcL (140-400); Red Blood Count 3.53 M/mcL (3.82-4.97); Segmented Neutrophils % 76.6 %
[2017-12-28 06:29] LABS: Prothrombin Time 11.2 Seconds (9.4-12.1)
[2017-12-28] MEDS: Folic Acid 1 MG TABLET PO SCH (07:30)
[2017-12-28] MEDS: Cholecalciferol (D-3) 1,000 UNIT TABLET PO SCH (07:30)
[2017-12-28] MEDS: Loratadine 10 MG TABLET PO SCH (07:30)
[2017-12-28] MEDS: Gabapentin 400 MG CAPSULE PO SCH ×4 (07:30→20:37)
[2017-12-28] MEDS: Aspirin Enteric Coated 81 MG Tablet PO SCH (07:30)
[2017-12-28] MEDS: Metoprolol XL (24 HR) Succ 25 MG TAB.ER.24H PO SCH (07:30)
[2017-12-28] MEDS: predniSONE 20 MG TABLET PO SCH (07:30)
[2017-12-28] MEDS: Cyanocobalamin (B-12) 1,000 MCG TABLET PO SCH (07:30)
[2017-12-28] MEDS: Insulin LISPRO 300 UNITS/3 ML VIAL SQ SCH ×4 (07:38→20:40)
[2017-12-28] MEDS: ALPRAZolam 1 MG TABLET PO SCH ×2 (07:40→15:28)
[2017-12-28] MEDS: Fluticasone Propionate Nasal 50 MCG/SPRAY BOTTLE NS SCH (08:40)
[2017-12-28] MEDS ORDERED: levoFLOXacin 750 MG TABLET PO SCH (09:00)
[2017-12-28] MEDS ORDERED: Propofol 500 MG/50 ML INFUS..BTL ONE (13:20)
--- NOTE | 2017-12-28 14:04 | Anesthesia Evaluation PreOp ---
Date of Encounter: 12/28/17 Time of Encounter: 14:02 - Past History Planned Operation: EGD, COLONOASCOPY Cardiac History: AL (NSTEMI 12/25), CHF, HTN, Hyperlipidemia, Cardiac Surgery, Cardiac Stent, Pacemaker/ICD (ST Ale PACEMAKER,), Other Pulmonary History: COPD (NOCTURNAL O2, COPD EXACERBATION 12/25) IC DESIGNER STANDARD CELLS History: Denies Any Significant HX Other Medical History: Renal, Bleeding (ANEMIA), Other (RHEUMATOID ARTHRITIS) Anesthesia History: No Prior Anesthetic Complications, Past Anesthesia Alcohol Use: none Drug use: none Medications and Allergies Albuterol Neb [Proventil Neb] 2.5 mg IH TID PRN 02/25/16 [History] Alprazolam [Xanax] 2 mg PO TID 02/25/16 [History] Aspirin 81 mg PO DAILY 02/25/16 [History] Cholecalciferol (D-3) [Vitamin D] 2,000 unit PO DAILY 02/25/16 [History] Clopidogrel [Plavix] 75 mg PO DAILY 02/25/16 [History] Colestipol HCl [Colestid] 2 gm PO BID 02/25/16 [History] Fluticasone Propionate Nasal [Flonase] 50 mcg NS DAILY 02/25/16 [History] Ipratropium/Albuterol Sulfate [Combivent Respimat Inhal Kelly] 2 puff IH DAILY 02/25/16 [History] Oxybutynin Chloride [Ditropan Xl] 10 mg PO DAILY 02/25/16 [History] hydroCHLOROthiazide [Hydrochlorothiazide] 25 mg PO DAILY 02/25/16 [History] Atorvastatin [Lipitor] 40 mg PO HS 04/27/16 [History] Cyanocobalamin (B-12) [Vitamin B12] 1,000 mcg PO DAILY 04/27/16 [History] Folic Acid 1 mg PO DAILY 04/27/16 [History] Lactose-Reduced Food [Boost] 237 ml PO TID 04/27/16 [History] Loratadine [Claritin] 10 mg PO DAILY 04/27/16 [History] [place]-3/Dha/Epa/Fish Oil [Fish Oil 1,000 mg Softgel] 1,000 mg PO DAILY 04/27/16 [History] cloNIDine HCl [CloNIDine HCl] 0.1 mg PO DAILY PRN 12/13/16 [History] ALPRAZolam [Xanax 1 MG Tablet] 1 - 2 mg PO DAILY PRN 12/25/17 [History] Cyclobenzaprine [Flexeril] 10 mg PO TID PRN 12/25/17 [History] Etanercept [Enbrel] 50 mg SQ QWEEK 12/25/17 [History] Gabapentin [Neurontin] 800 mg PO QID 12/25/17 [History] Lisinopril [Zestril] 5 mg PO DAILY 12/25/17 [History] Methotrexate Sodium/PF [Methotrexate 25 mg/ml Vial] 20 mg IM QWEEK 12/25/17 [ History] Mirtazapine [Remeron] 45 mg PO HS 12/25/17 [History] Pantoprazole Sodium [Protonix] 40 mg PO DAILY 12/25/17 [History] Paroxetine HCl [Paxil] 40 mg PO DAILY 12/25/17 [History] Potassium Chloride [K-Tab ER] 10 meq PO BID 12/25/17 [History] amLODIPine [Norvasc] 5 mg PO DAILY 12/25/17 [History] metFORMIN [Glucophage] 500 mg PO DAILY 12/25/17 [History] 3 Allergy/AdvReac Type Severity Reaction Status Date / Time azithromycin Allergy See Verified 06/10/16 09:14 Comments clarithromycin [From Biaxin] Allergy See Verified 06/10/16 09:14 Comments fluconazole [From Diflucan] Allergy See Verified 06/10/16 09:14 Comments Hydromorphone [From Dilaudid] Allergy Hives Verified 06/10/16 09:14 Iodinated Contrast- Oral and Allergy See Verified 06/10/16 09:14 IV Dye Comments [Iodinated Contrast Media - IV Dye] morphine Allergy See Verified 06/10/16 09:14 Comments propoxyphene Allergy See Verified 06/10/16 09:14 [From Darvocet-N] Comments naproxen AdvReac See Verified 06/10/16 09:14 Comments - Meds/Allergy Pre-op Review Medications Reviewed: Yes Allergies Reviewed: Yes Beta Blockers on Current Med List: No Anesthesia Results - Labs 12/28/17 05:59 12/27/17 07:11 Laboratory Tests 12/25/17 12/25/17 12/28/17 01:11 01:11 05:59 PT 11.2 INR 1.0 Troponin I 0.13 H* B-Natriuretic Peptide 99 Anesthesia Exam Vital Signs/O2 Sat, Most Current Temp Pulse Resp BP Pulse Ox 98.4 F 73 20 105/69 95 12/28/17 13:35 12/28/17 13:35 12/28/17 13:35 12/28/17 13:35 12/28/17 13:35 Height: 1.57 m Weight: 67 kg BMI 27 NPO (# of Hours): 8 - HEENT Pupil (Motor): Pupils equal Mallampati: II Teeth: Edentulous Denture Type: Upper: Complete Oral Opening: Greater than 3 - IC DESIGNER STANDARD CELLS LOC: Oriented - Cardiac Rhythm: Regular - Pulmonary Breath Sounds: bilateral Clear Anesthesia Assess/Plan ASA Score: 4 Modified Lilibeth Scale for Level of Consciousness: Cooperative, oriented, and tranquil Anesthetic Plan: MAC Monitoring Plan: Standard Monitors Recovery Plan: Other Anesthesia Note - Note Note: 12/28/17 14:12 Active Medications Generic Name Dose Route Start Last Admin Trade Name Freq PRN Reason Stop Dose Admin Albuterol Sulfate 2.5 mg 12/25/17 13:18 Proventil Neb 06/26/18 13:19 TID PRN Shortness Of Breath/Wheezing Protocol Albuterol/Ipratropium 3 ml 12/25/17 04:00 12/28/17 11:01 Duoneb IH 06/26/18 04:01 3 ml [id number] LATOSHA Administration Alprazolam 2 mg 12/25/17 09:00 12/28/17 07:40 Xanax PO 06/26/18 09:01 Not Given TID LATOSHA Aspirin 81 mg 12/25/17 09:00 12/28/17 07:30 Aspirin Ec PO 06/26/18 09:01 81 mg DAILY LATOSHA Administration Atorvastatin Calcium 80 mg 12/25/17 21:00 12/27/17 22:30 Lipitor PO 06/26/18 21:01 80 mg HS LATOSHA Administration Bisacodyl 10 mg 12/26/17 15:06 Dulcolax PO 06/27/18 15:07 DAILY PRN Constipation Clonidine HCl 0.1 mg 12/25/17 13:18 Clonidine Hcl PO 06/26/18 13:19 DAILY PRN Hypertension Clopidogrel Bisulfate 75 mg 12/26/17 09:00 12/28/17 07:39 Plavix PO 06/27/18 09:01 Not Given DAILY LATOSHA Cyanocobalamin 1,000 mcg 12/26/17 09:00 12/28/17 07:30 Vitamin B12 PO 06/27/18 09:01 1,000 mcg DAILY LATOSHA Administration Cyclobenzaprine HCl 10 mg 12/25/17 13:18 12/25/17 17:04 Flexeril PO 06/26/18 13:19 10 mg TID PRN Administration Muscle Pain Dextrose/Water 25 ml 12/26/17 10:31 Dextrose 50% (Syg) IVP 06/27/18 10:32 AD PRN Hypoglycemia Docusate Sodium 100 mg 12/26/17 15:06 Colace PO 06/27/18 15:07 BID PRN Constipation Protocol Fluticasone Propionate 50 mcg 12/26/17 09:00 12/28/17 08:40 Flonase NS 06/27/18 09:01 Not Given DAILY [facility] Protocol Folic Acid 1 mg 12/26/17 09:00 12/28/17 07:30 Folic Acid PO 06/27/18 09:01 1 mg DAILY LATOSHA Administration Gabapentin 800 mg 12/25/17 17:00 12/28/17 13:13 Neurontin PO 06/26/18 17:01 Not Given QID LATOSHA Glucagon 1 mg 12/26/17 10:31 Glucagen IM 06/27/18 10:32 ONCE PRN Hypoglycemia Glucose 15 gm 12/26/17 10:31 Gluctose PO 06/27/18 10:32 ONCE PRN Hypoglycemia Glucose 30 gm 12/26/17 10:31 Gluctose PO 06/27/18 10:32 ONCE PRN Hypoglycemia Guaifenesin 200 mg 12/26/17 16:08 Robitussin Liq PO 06/27/18 16:09 Q6HR PRN Cough Heparin Sodium (Porcine) 5,000 unit 12/25/17 14:00 12/28/17 06:13 Heparin SQ 06/26/18 14:01 5,000 unit Q8HCO LATOSHA Administration Dextrose 1,000 mls @ 100 mls/hr 12/26/17 10:31 Dextrose 5% IVC 06/27/18 10:32 .Q10H PRN HYPOGLYCEMIA Insulin Human Lispro 0 units 12/26/17 21:00 12/27/17 22:31 Humalog SQ 06/27/18 21:01 2 unit HS LATOSHA Administration Protocol Insulin Human Lispro 0 units 12/26/17 11:30 12/28/17 12:28 Humalog SQ 06/27/18 11:31 Not Given TIDAC [facility] Protocol Levofloxacin 750 mg 12/28/17 09:00 12/28/17 07:30 Levaquin PO 01/01/18 09:01 750 mg DAILY LATOSHA Administration Lisinopril 5 mg 12/26/17 09:00 12/28/17 07:30 Zestril PO 06/27/18 09:01 5 mg DAILY LATOSHA Administration Protocol Loratadine 10 mg 12/26/17 09:00 12/28/17 07:30 Claritin PO 06/27/18 09:01 10 mg DAILY LATOSHA Administration Protocol Metoprolol Succinate 25 mg 12/25/17 10:30 12/28/17 07:30 Toprol Xl PO 06/26/18 10:31 25 mg DAILY LATOSHA Administration Mirtazapine 45 mg 12/25/17 21:00 12/27/17 22:30 Remeron PO 06/26/18 21:01 45 mg HS LATOSHA Administration Naloxone HCl 0.4 mg 12/25/17 00:20 Narcan IVP 06/26/18 00:21 Q2MIN PRN SEE COMMENTS Nitroglycerin 0.4 mg 12/25/17 07:37 12/25/17 07:43 Nitroglycerin SL 06/26/18 07:38 0.4 mg Q5MIN PRN Administration Chest Pain Omeprazole 20 mg 12/26/17 09:00 12/28/17 07:29 Prilosec PO 06/27/18 09:01 20 mg DAILY LATOSHA Administration Oxybutynin Chloride 5 mg 12/26/17 09:00 12/28/17 07:29 Ditropan PO 06/27/18 09:01 5 mg BID LATOSHA Administration Oxycodone/Acetaminophen 1 each 12/25/17 08:03 12/27/17 11:18 Percocet 5/325 PO 06/26/18 08:04 1 each Q6HR PRN Administration Moderate Pain Paroxetine HCl 40 mg 12/26/17 09:00 12/28/17 07:30 Paxil PO 06/27/18 09:01 40 mg DAILY LATOSHA Administration Potassium Chloride 10 meq 12/25/17 17:00 08/15/18 07:30 Potassium Chloride PO 06/26/18 17:01 10 meq BIDWM LATOSHA Administration Prednisone 40 mg 12/27/17 09:00 12/28/17 07:30 Prednisone PO 01/04/18 08:59 40 mg DAILY LATOSHA Administration Taper Vitamin D 1,000 unit 12/26/17 09:00 12/28/17 07:30 Vitamin D PO 06/27/18 09:01 1,000 unit DAILY LATOSHA Administration
--- NOTE | 2017-12-28 14:48 | Gastroenterology Consult Note ---
<Jim Schmidt - Last Filed: 12/28/17 14:46> Date of Encounter: 12/28/17 Time of Encounter: 10:40 - Assessment and plan (1) EDUARDO (iron deficiency anemia) Current Visit: Yes Status: Acute Assessment and plan: Hgb 10.5 on 10/05/2017, on admission Hgb 8.4 with MCV 78.6, Hgb dropped to 7.2 yesterday, and this AM Hgb 8.4. Iron <10 with ferritin <8. Continue to monitor CBC and transfuse PRBC as needed. Give dose of IV iron and repeat in 2 weeks. Plan for EGD and colonoscopy today. Qualifiers: Iron deficiency anemia type: unspecified iron deficiency Qualified Code(s) : D50.9 - Iron deficiency anemia, unspecified (2) COPD exacerbation Current Visit: Yes Status: Acute Assessment and plan: Management per primary team. - Time Spent With Patient Total time spent is greater than 50% in coordination of care (as documented) at patient's floor/unit and/or counseling patient: GI History of Present Illness - Data of Consult Patient: new to practice Consult date: 12/28/17 Requesting Physician: Chase Zepeda - Consult Narrative Reason for consult: EDUARDO History of present illness: Ms. Felix is a 67 year old female with PMHx of arthritis, cardiomyopathy, CHF, COPD, CAD s/p CABG, fibromyalgia, GERD, HLD, HTN, [place], presented to the outside hospital ED with complaints of shortness of breath, chest pain, and back pain. Troponin at [facility] 0.7 and troponin at [facility] 0.13, 0.10. Cardiology was consulted and recommended GI evaluation to r/o bleeding prior to invasive cardiac evaluation due to downtrending Hgb. Hgb 10.5 on 10/05/2017, on admission Hgb 8.4 with MCV 78.6, Hgb dropped to 7.2 yesterday, and this AM Hgb 8.4. Iron < 10 with ferritin <8. We have been consulted for evaluation of his anemia. Procedures: None NSAIDs: ASA Anticoagulation: Plavix Past Med Surg Social Fam HX - Past Medical History Medical history: arthritis, COPD, coronary artery disease, fibromyalgia, GERD, hyperlipidemia, hypertension, myocardial infarction, osteoporosis, RA, renal disease Additional medical history: irregular heart Psychiatric history: anxiety, depression, panic disorder, PTSD, other - Past Surgical History Surgical History: angioplasty/stent, , cholecystectomy, coronary bypass (CABG), knee replacement, orthopedic, other, pacemaker/AICD, other - Social History Smoking Status: Current some day smoker Packs per day: 1/2 Smokeless Tobacco Status: No Alcohol use: none Drug use: none - Gastrointestinal Gastrointestinal: Present: as per HPI - Constitutional Constitutional: as per HPI - EENT Eyes: as per HPI Ears: Present: as per HPI Nose, mouth and throat: Present: as per HPI - Cardiovascular Cardiovascular ROS: Present: as per HPI - Respiratory Respiratory IM: Present: as per HPI - Genitourinary Genitourinary: Absent: change in color, Urinary frequency - Neurological ROS Neurological GI: Present: as per HPI - Hematologic/Lymphatic Hematologic/Lymphatic pediatric: Present: as per HPI - Musculoskeletal Musculoskeletal ROS GI: Present: as per HPI - Integumentary Integumentary GI: Present: as per HPI - Psychiatric ROS Psychiatric GI: Present: as per HPI - Endocrine Endocrine IM: Present: as per HPI - Constitutional Vitals: Temp Pulse Resp BP Pulse Ox 98.4 F 73 20 105/69 95 12/28/17 13:35 12/28/17 13:35 12/28/17 13:35 12/28/17 13:35 12/28/17 13:35 General appearance: Present: cooperative, A&O X 3, no acute distress, answers questions appropriately - Head Head exam: Present: atraumatic, normocephalic - Eye Eye exam: Present: normal appearance, sclera anicteric - ENT ENT exam: Present: mucous membranes dry - Neck Neck exam general surgery: Present: normal inspection, trachea midline - Respiratory Respiratory exam: Present: CTAB - Cardiovascular Cardiovascular exam: Present: RRR, +S1, +S2 - GI/Abdominal GI/Abdominal exam: Present: soft, no peritoneal signs. Absent: distended, firm , guarding, tenderness - Rectal Rectal exam: Present: deferred - Extremities Exam Extremities exam: Present: warm - Neurological Exam Neurological exam: Present: no focal deficits - Psychiatric Psychiatric exam: Present: normal affect, normal mood - Skin Skin exam: Present: dry, intact, normal color, warm Results - Labs CBC & Chem 7: 12/28/17 05:59 12/27/17 07:11 Labs: Last Result Calcium 8.7 mg/dL (8.6-10.3) 12/27/17 07:11 Iron < 10 mcg/dL (50-170) L 12/27/17 07:11 % Saturation TNP 12/27/17 07:11 Transferrin 369 mg/dL (203-362) H 12/27/17 07:11 Ferritin < 8 ng/mL (10-120) L 12/27/17 07:11 Troponin I 0.10 ng/mL (< 0.04) H* 12/25/17 08:20 Triglycerides 62 mg/dL (< 150) 12/25/17 01:11 Vitamin B12 756 pg/mL (250-1100) 12/27/17 07:11 Folate 13.7 ng/mL (3.0-16.0) 12/27/17 07:11 Entire Visit Hgb 8.1 g/dL (11.5-15.4) L 12/28/17 05:59 Hct 27.7 % (35.3-44.9) L 12/28/17 05:59 PT 11.2 Seconds (9.4-12.1) 12/28/17 05:59 Ferritin < 8 ng/mL (10-120) L 12/27/17 07:11 Folate 13.7 ng/mL (3.0-16.0) 12/27/17 07:11 - ABG ABG results: PT/INR, D-dimer PT 11.2 Seconds (9.4-12.1) 12/28/17 05:59 - Impressions Impressions Abdomen/Pelvis CT 12/27/17 11:11 IMPRESSION: No acute findings are seen to the abdomen or pelvis. No evidence for hemorrhage. Trace left pleural effusion. Mild consolidation to bilateral lower lobes, left more than right, felt most likely to reflect some scarring and/or atelectasis. Multifocal infiltrates or aspiration pneumonitis could have a similar appearance. Stable large hiatal hernia. D/ / 12/27/2017 12:31:45 Spike Luevano MD / luciano Interpreting Provider: Spike Luevano MD Consult Discharge Plan - Plan Referrals: Franci Davenport, RADIOCHEMICAL TECHNICIAN [Primary Care Provider] - <Linden Melendezed - Last Filed: 12/28/17 17:41> Date of Encounter: 12/28/17 Time of Encounter: 13:00 - Time Spent With Patient Total time spent is greater than 50% in coordination of care (as documented) at patient's floor/unit and/or counseling patient: GI History of Present Illness - Data of Consult Requesting Physician: Chase Zepeda - Consult Narrative History of present illness: Ms. Felix is a 67 year old female - Constitutional Vitals: Temp Pulse Resp BP Pulse Ox 98.8 F 73 18 88/58 91 12/28/17 16:46 12/28/17 16:46 12/28/17 16:46 12/28/17 16:46 12/28/17 16:46 Results - Labs CBC & Chem 7: 12/28/17 05:59 12/27/17 07:11 Labs: Last Result Calcium 8.7 mg/dL (8.6-10.3) 12/27/17 07:11 Iron < 10 mcg/dL (50-170) L 12/27/17 07:11 % Saturation TNP 12/27/17 07:11 Transferrin 369 mg/dL (203-362) H 12/27/17 07:11 Ferritin < 8 ng/mL (10-120) L 12/27/17 07:11 Troponin I 0.10 ng/mL (< 0.04) H* 12/25/17 08:20 Triglycerides 62 mg/dL (< 150) 12/25/17 01:11 Vitamin B12 756 pg/mL (250-1100) 12/27/17 07:11 Folate 13.7 ng/mL (3.0-16.0) 12/27/17 07:11 Entire Visit Hgb 8.1 g/dL (11.5-15.4) L 12/28/17 05:59 Hct 27.7 % (35.3-44.9) L 12/28/17 05:59 PT 11.2 Seconds (9.4-12.1) 12/28/17 05:59 Ferritin < 8 ng/mL (10-120) L 12/27/17 07:11 Folate 13.7 ng/mL (3.0-16.0) 12/27/17 07:11 - ABG ABG results: PT/INR, D-dimer PT 11.2 Seconds (9.4-12.1) 12/28/17 05:59 - Impressions Impressions Abdomen/Pelvis CT 12/27/17 11:11 IMPRESSION: No acute findings are seen to the abdomen or pelvis. No evidence for hemorrhage. Trace left pleural effusion. Mild consolidation to bilateral lower lobes, left more than right, felt most likely to reflect some scarring and/or atelectasis. Multifocal infiltrates or aspiration pneumonitis could have a similar appearance. Stable large hiatal hernia. D/ / 12/27/2017 12:31:45 Spike Luevano MD / luciano Interpreting Provider: Spike Luevano MD - Attending Attestation I have personally performed a face to face evaluation on this patient. I have reviewed and agree with the care plan. History and Exam by me shows: Patient seen. Denies any abdominal pain. Examination abdomen is benign. Assessment: Patient with iron deficiency anemia rule out GI blood loss causes as cause of her anemia. Recommendation: EGD colonoscopy today.
[2017-12-28] MEDS ORDERED: Iron Sucrose Complex 400 MG in 0.9 % Sodium Chloride 250 ML IVPB ONE (14:49)
[2017-12-28] MEDS ORDERED: SODIUM CHLORIDE/NAHCO3/KCL/PEG 4,000 ML SOLN.RECON PO ONE (14:53)
[2017-12-28] MEDS ORDERED: Polyethylene Glycol 3350 255 GM POWDER PO ONE (18:31)
[2017-12-28] MEDS: Mirtazapine 15 MG TABLET PO SCH (20:36)
[2017-12-28] MEDS: *HR* OxyCODONE/APAP 5/325 TABLET PO PRN (20:36)
[2017-12-29] MEDS: *HR* Heparin 5,000 UNIT/ML VIAL SQ SCH ×2 (00:55→07:00)
[2017-12-29] MEDS: Ipratropium/Albuterol Neb 3 ML IH SCH ×4 (03:51→15:40)
[2017-12-29] MEDS: *HR* OxyCODONE/APAP 5/325 TABLET PO PRN ×2 (04:54→11:03)
[2017-12-29] MEDS: ALPRAZolam 1 MG TABLET PO SCH ×2 (05:29→11:03)
--- NOTE | 2017-12-29 06:11 | Internal Med Progress Note ---
Hospitalist Progress Note - Encounter Date of Encounter: 12/28/17 Time of Encounter: 19:00 - Exam Vitals: Temp Pulse Resp BP Pulse Ox 98.4 F 69 16 130/82 93 12/29/17 06:02 12/29/17 06:02 12/29/17 06:02 12/29/17 06:02 12/29/17 06:02 Exam: xxx - Assessment and Plan (1) Chest pain Current Visit: Yes Status: Acute (2) COPD exacerbation Current Visit: Yes Status: Acute (3) Elevated troponin Current Visit: Yes Status: Acute (4) Anemia Current Visit: Yes Status: Acute (5) CAD (coronary artery disease) Current Visit: Yes Status: Acute DVT Prophylaxis: low risk patient - Summary of Assessment and Plan Summary of Assessment and Plan: SUBJECTIVE: The patient continues to have right-sided chest pain. It is worse with some body position in bed. It is worse with deep breathing. The pain seems to be originating in the mid back; spreading to the lower portion of her right chest. Sometimes, she feels like her pain is the area of her liver. Denies nausea and vomiting. Her breathing seems to be better. She denies resting dyspnea. She is on room air oxygen. She does have mild cough but not wheezing. OBJECTIVE: Skin: Free of rash and discoloration. ENMT: Oral/pharyngeal mucosa is normal in appearance. Eyes: Sclera is white. There is no discharge from eyes. Respiratory: Normal breath sounds; no crackles or wheezes. CV: Heart is regular; no gallop or murmur. GI: Abdomen is soft and not tender. There is no palpable mass or visceromegaly. Neuro: There is no focal deficits. ASSESSMENT AND PLAN: The patient is admitted with chest pain. The pain is not typical for cardiac ischemia. She has underlying coronary artery disease/has 4 coronary stents. She had slightly elevated troponin (0.10 and 0.13) at admission. Cardiology was consulted. They wanted to do cardiac catheterization. They signed off; awaiting GI evaluation of her anemia. The patient will likely have upper and lower endoscopy tomorrow. She is receiving bowel prep. COPD exacerbation. Better. She is on Levaquin and nebulizer treatments with Duoneb. She gets prednisone at 40 mg by mouth daily. Anemia. She had hemoglobin of 10.5 in September. It was 8.4 at admission; 8.1 today morning. - Time Spent with Patient Total time spent is greater than 50% in coordination of care (as documented) at patient's floor/unit and/or counseling patient: Plan of Care Discussed with: patient Internal Medicine: Result - Labs CBC & Chem 7: 12/28/17 05:59 12/27/17 07:11 Labs: Short CBC 12/28/17 Range/Units 05:59 WBC 14.5 H (4.3-11.1) K/mcL Hgb 8.1 L (11.5-15.4) g/dL Hct 27.7 L (35.3-44.9) % Plt Count 476 H (140-400) K/mcL Neutrophils # 11.2 H (1.6-8.9) K/mcL - ABG Interpretation ABG results: PT/INR, D-dimer PT 11.2 Seconds (9.4-12.1) 12/28/17 05:59 - VTE Documentation of Mechanical Device: Intermittent pneumatic compression device Consult Discharge Plan - Plan Referrals: Franci Davenport, [employer] SHOT P[employer]ER [Primary Care Provider] - (1) Chest pain Qualifiers: Chest pain type: other chest pain Qualified Code(s): R07.89 - Other chest pain; R07.8 - Other chest pain (4) Anemia Qualifiers: Anemia type: unspecified type Qualified Code(s): D64.9 - Anemia, unspecified (5) CAD (coronary artery disease) Qualifiers: Coronary Disease-Associated Artery/Lesion type: [place] artery [place] vs. transplanted heart: [place] heart Associated angina: angina presence unspecified Qualified Code(s): I25.10 - Atherosclerotic heart disease of [place] coronary artery without angina pectoris
[2017-12-29] MEDS ORDERED: Ondansetron 4 MG/2 ML VIAL IVP PRN (06:15)
--- NOTE | 2017-12-29 11:25 | Anesthesia Evaluation PreOp ---
Date of Encounter: 12/29/17 - Past History Planned Operation: Colonoscopy Cardiac History: [place] (NSTEMI 12/25/2017), CHF, HTN, Hyperlipidemia, Cardiac Surgery (CABG x 1 in 1999), Cardiac Stent, Pacemaker/ICD ([place] pacemaker) Pulmonary History: Smoker, COPD (home O2 qhs) SH[employer]NER History: Denies Any Significant HX Other Medical History: Renal, Other (RA) Anesthesia History: No Prior Anesthetic Complications, Past Anesthesia Alcohol Use: none Drug use: none Medications and Allergies Albuterol Neb [Proventil Neb] 2.5 mg IH TID PRN 02/25/16 [History] Alprazolam [Xanax] 2 mg PO TID 02/25/16 [History] Aspirin 81 mg PO DAILY 02/25/16 [History] Cholecalciferol (D-3) [Vitamin D] 2,000 unit PO DAILY 02/25/16 [History] Clopidogrel [Plavix] 75 mg PO DAILY 02/25/16 [History] Colestipol HCl [Colestid] 2 gm PO BID 02/25/16 [History] Fluticasone Propionate Nasal [Flonase] 50 mcg NS DAILY 02/25/16 [History] Ipratropium/Albuterol Sulfate [Combivent Respimat Inhal [place]] 2 puff IH DAILY 02/25/16 [History] Oxybutynin Chloride [Ditropan Xl] 10 mg PO DAILY 02/25/16 [History] hydroCHLOROthiazide [Hydrochlorothiazide] 25 mg PO DAILY 02/25/16 [History] Atorvastatin [Lipitor] 40 mg PO HS 04/27/16 [History] Cyanocobalamin (B-12) [Vitamin B12] 1,000 mcg PO DAILY 04/27/16 [History] Folic Acid 1 mg PO DAILY 04/27/16 [History] Lactose-Reduced Food [Boost] 237 ml PO TID 04/27/16 [History] Loratadine [Claritin] 10 mg PO DAILY 04/27/16 [History] [place]-3/Dha/Epa/Fish Oil [Fish Oil 1,000 mg Softgel] 1,000 mg PO DAILY 04/27/16 [History] cloNIDine HCl [CloNIDine HCl] 0.1 mg PO DAILY PRN 04/27/16 [History] ALPRAZolam [Xanax 1 MG Tablet] 1 - 2 mg PO DAILY PRN 12/25/17 [History] Cyclobenzaprine [Flexeril] 10 mg PO TID PRN 12/25/17 [History] Etanercept [Enbrel] 50 mg SQ QWEEK 12/25/17 [History] Gabapentin [Neurontin] 800 mg PO QID 12/25/17 [History] Lisinopril [Zestril] 5 mg PO DAILY 12/25/17 [History] Methotrexate Sodium/PF [Methotrexate 25 mg/ml Vial] 20 mg IM QWEEK 12/25/17 [ History] Mirtazapine [Remeron] 45 mg PO HS 12/25/17 [History] Pantoprazole Sodium [Protonix] 40 mg PO DAILY 12/25/17 [History] Paroxetine HCl [Paxil] 40 mg PO DAILY 12/25/17 [History] Potassium Chloride [K-Tab ER] 10 meq PO BID 12/25/17 [History] amLODIPine [Norvasc] 5 mg PO DAILY 12/25/17 [History] metFORMIN [Glucophage] 500 mg PO DAILY 12/25/17 [History] 3 Allergy/AdvReac Type Severity Reaction Status Date / Time azithromycin Allergy See Verified 06/10/16 09:14 Comments clarithromycin [From Biaxin] Allergy See Verified 06/10/16 09:14 Comments fluconazole [From Diflucan] Allergy See Verified 06/10/16 09:14 Comments Hydromorphone [From Dilaudid] Allergy Hives Verified 06/10/16 09:14 Iodinated Contrast- Oral and Allergy See Verified 06/10/16 09:14 IV Dye Comments [Iodinated Contrast Media - IV Dye] morphine Allergy See Verified 06/10/16 09:14 Comments propoxyphene Allergy See Verified 06/10/16 09:14 [From Darvocet-N] Comments naproxen AdvReac See Verified 06/10/16 09:14 Comments - Meds/Allergy Pre-op Review Medications Reviewed: Yes Allergies Reviewed: Yes Beta Blockers on Current Med List: Yes If Beta Blockers taken, Date/Time (Last Dose taken): 12/29/2017 at 0730 Anesthesia Results - Labs 12/28/17 05:59 12/27/17 07:11 - Imaging Additional studies: 12/25/2017 Echo Impressions: LVEF 65%. Normal LV chamber size, wall thickness and function. Indeterminate diastolic function. Atypical septal motion consistent with post-operative status. Normal right ventricular structure and function. Mild pulmonary hypertension. No significant valvular dysfunction. Anesthesia Exam Vital Signs/O2 Sat/Glucose, Most Recent Temp Pulse Resp BP Pulse Ox 98.3 F 74 18 117/64 93 12/29/17 11:00 12/29/17 11:00 12/29/17 11:00 12/29/17 11:00 12/29/17 11:00 Blood Glucose* 91 Height: 5'2''/1.57m Weight: 147 lbs/66.8 kg NPO (# of Hours): 8 Pain Scale: 0 Pain Scale Used: Numeric (1 - 10) - HEENT Pupil (Motor): EOMI Mallampati: II Teeth: Edentulous Oral Opening: Greater than 3 - [employer]OE [employer]NER LOC: Oriented SHOE [employer] OUT PLANNER Motor: Normal RUE, Normal LUE, Normal RLE, Normal LLE, Normal Face SH[employer]NER Sensory: Normal: RUE, LUE, RLE, LLE, Face - Cardiac Rhythm: Regular Murmur: None - Pulmonary Breath Sounds: bilateral Clear Respiratory Effort: Symmetrical Anesthesia Assess/Plan ASA Score: 4 Modified Lilibeth Scale for Level of Consciousness: Cooperative, oriented, and tranquil Anesthetic Plan: MAC Monitoring Plan: Standard Monitors
[2017-12-29] MEDS: Insulin LISPRO 300 UNITS/3 ML VIAL SQ SCH ×2 (11:51→11:52)
[2017-12-29] MEDS: Aspirin Enteric Coated 81 MG Tablet PO SCH (11:52)
[2017-12-29] MEDS: Loratadine 10 MG TABLET PO SCH (11:52)
[2017-12-29] MEDS: Gabapentin 400 MG CAPSULE PO SCH (11:53)
[2017-12-29] MEDS: Folic Acid 1 MG TABLET PO SCH (11:53)
[2017-12-29] MEDS: Fluticasone Propionate Nasal 50 MCG/SPRAY BOTTLE NS SCH (11:53)
[2017-12-29] MEDS: Cholecalciferol (D-3) 1,000 UNIT TABLET PO SCH (11:54)
[2017-12-29] MEDS ORDERED: *HR* FentaNYL (PF) 100 MCG/2 ML VIAL ONE (14:45)
[2017-12-29] MEDS ORDERED: *HR* Midazolam HCl 5 MG/5 ML VIAL IVP ONE ×2 (14:45→14:55)
[2017-12-29] MEDS ORDERED: *HR* Promethazine 25 MG/ML VIAL ONE (14:46)
[2017-12-29] MEDS ORDERED: Simethicone 40 MG/0.6 ML MLS IR ONE (14:55)
[2017-12-29] MEDS ORDERED: *HR* FentaNYL (PF) 100 MCG/2 ML VIAL IVP ONE (14:55)
[2017-12-29] MEDS ORDERED: *HR* Promethazine 25 MG/ML VIAL IM ONE (15:03)
[2017-12-29 15:45] VITALS: BP 127/63
--- NOTE | 2017-12-29 17:05 | Discharge Summary ---
Orders not resulted at time of discharge: Pending orders 12/25/17 00:22 Occult Blood,Stool [BF] Routine 12/28/17 14:34 Surgical Pathology [PTH] Routine Date of Encounter: 12/29/17 Time of Encounter: 19:00 - Discharge Diagnosis (1) Chest pain Priority: Primary Status: Acute Qualifiers: Chest pain type: other chest pain Qualified Code(s): R07.89 - Other chest pain; R07.8 - Other chest pain (2) COPD exacerbation Priority: Secondary Status: Acute (3) Elevated troponin Priority: Secondary Status: Acute (4) Anemia Priority: Secondary Status: Acute Qualifiers: Anemia type: unspecified type Qualified Code(s): D64.9 - Anemia, unspecified (5) CAD (coronary artery disease) Priority: Secondary Status: Chronic Qualifiers: Coronary Disease-Associated Artery/Lesion type: [place] artery [place] vs. transplanted heart: [place] heart Associated angina: angina presence unspecified Qualified Code(s): I25.10 - Atherosclerotic heart disease of [place] coronary artery without angina pectoris Hospital course: Ms. Felix is a 67 year old female. It was in the last 5 days preceding this admission when the patient had developed her difficulty breathing with some coughing and wheezing. She also suffered from off and on chest pain. The pain was mostly located in the lower portion of her right lower lateral and anterior chest. It was pretty constant during this hospitalization. It was worse with some body positions in bed. It was worse with deep breathing. We treated her for exacerbation of COPD with prednisone and nebulizer treatments. She has underlying coronary artery disease. Her troponin at admission was 0.10 and 0.13. It was normal in 2016. Cardiology was consulted. Echocardiogram has been done. It showed ejection fraction of 65%; no significant abnormalities. One can see that her hemoglobin at admission was 8.4; was 10.5 in September of this year. A little bit later into this hospitalization her hemoglobin dropped to 7.2. Cardiology decided to postpone her cardiac catheterization. GI service was consulted. They did upper and lower endoscopy. They did not find any significant abnormalities (the could not find source of bleeding). CONDITION AT DISCHARGE: She continues to have right-sided chest pain, as described by me above. She does have underlying DJD and the fibromyalgia. She is ambulating on her own. The pain is not worse with ambulation. Skin: Free of rash and discoloration. Respiratory: Normal breath sounds with no crackles and wheezes bilaterally. GI: Abdomen is flat and soft with no palpable mass or visceromegaly. Neuro exam: There is no focal deficits. Normal speech, swallowing and gait. SEE DISCHARGE ORDERS/MEDICATIONS.. The patient is to check her CBC in about 1 week. Follow up with Dr. MANCILLA, GI service in about 10 days. She may benefit from cardiac catheterizationhas to be cleared by Dr. MANCILLA. Discharge discussed with: patient, family, nurse - Time Spent with Patient Total time spent providing and/or coordinating discharge services: Greater than 30 minutes (45 minutes) - Discharge Medications Prescriptions: Ferrous Gluconate 324 mg PO BID 30 Days #60 tablet Levofloxacin [Levaquin] 500 mg PO DAILY 5 Days #5 tablet Metoprolol XL (24 HR) Succ [Toprol Xl] 25 mg PO DAILY 30 Days #30 tab.er.24h predniSONE [PredniSONE] 20 mg PO QAM 5 Days #5 tablet Home Medications: Alprazolam [Xanax] 2 mg PO TID 02/25/16 [History] Aspirin 81 mg PO DAILY 02/25/16 [History] Cholecalciferol (D-3) [Vitamin D] 2,000 unit PO DAILY 02/25/16 [History] Clopidogrel [Plavix] 75 mg PO DAILY 02/25/16 [History] Colestipol HCl [Colestid] 2 gm PO BID 02/25/16 [History] Fluticasone Propionate Nasal [Flonase] 50 mcg NS DAILY 02/25/16 [History] Ipratropium/Albuterol Sulfate [Combivent Respimat Inhal [place]] 2 puff IH DAILY 02/25/16 [History] Oxybutynin Chloride [Ditropan Xl] 10 mg PO DAILY 02/25/16 [History] hydroCHLOROthiazide [Hydrochlorothiazide] 25 mg PO DAILY 02/25/16 [History] Atorvastatin [Lipitor] 40 mg PO HS 04/27/16 [History] Cyanocobalamin (B-12) [Vitamin B12] 1,000 mcg PO DAILY 04/27/16 [History] Folic Acid 1 mg PO DAILY 04/27/16 [History] Lactose-Reduced Food [Boost] 237 ml PO TID 04/27/16 [History] Loratadine [Claritin] 10 mg PO DAILY 04/27/16 [History] [place]-3/Dha/Epa/Fish Oil [Fish Oil 1,000 mg Softgel] 1,000 mg PO DAILY 04/27/16 [History] cloNIDine HCl [CloNIDine HCl] 0.1 mg PO DAILY PRN 04/27/16 [History] ALPRAZolam [Xanax 1 MG Tablet] 1 - 2 mg PO DAILY PRN 12/25/17 [History] Cyclobenzaprine [Flexeril] 10 mg PO TID PRN 12/25/17 [History] Etanercept [Enbrel [place]] 50 mg SQ QWEEK 12/25/17 [History] Gabapentin [Neurontin] 800 mg PO QID 12/25/17 [History] Lisinopril [Zestril] 5 mg PO DAILY 12/25/17 [History] Methotrexate Sodium/PF [Methotrexate 25 mg/ml Vial] 20 mg IM QWEEK 12/25/17 [ History] Mirtazapine [Remeron] 45 mg PO HS 12/25/17 [History] Pantoprazole Sodium [Protonix] 40 mg PO DAILY 12/25/17 [History] Paroxetine HCl [Paxil] 40 mg PO DAILY 12/25/17 [History] Potassium Chloride [K-Tab ER] 10 meq PO BID 12/25/17 [History] amLODIPine [Norvasc] 5 mg PO DAILY 12/25/17 [History] metFORMIN [Glucophage] 500 mg PO DAILY 12/25/17 [History] Albuterol Neb [Proventil Neb] 2.5 mg IH Q6HR PRN #0 12/29/17 [Rx] Ferrous Gluconate 324 mg PO BID 30 Days #60 tablet 12/29/17 [Rx] Levofloxacin [Levaquin] 500 mg PO DAILY 5 Days #5 tablet 12/29/17 [Rx] Metoprolol XL (24 HR) Succ [Toprol Xl] 25 mg PO DAILY 30 Days #30 tab.er.24h [Rx] predniSONE [PredniSONE] 20 mg PO QAM 5 Days #5 tablet 12/29/17 [Rx] Allergies/Adverse Reactions: 3 Allergy/AdvReac Type Severity Reaction Status Date / Time azithromycin Allergy See Verified 06/10/16 09:14 Comments clarithromycin [From Biaxin] Allergy See Verified 06/10/16 09:14 Comments fluconazole [From Diflucan] Allergy See Verified 06/10/16 09:14 Comments Hydromorphone [From Dilaudid] Allergy Hives Verified 06/10/16 09:14 Iodinated Contrast- Oral and Allergy See Verified 06/10/16 09:14 IV Dye Comments [Iodinated Contrast Media - IV Dye] morphine Allergy See Verified 06/10/16 09:14 Comments propoxyphene Allergy See Verified 06/10/16 09:14 [From Darvocet-N] Comments naproxen AdvReac See Verified 06/10/16 09:14 Comments Date of admission: 12/25/17 00:20 Primary care physician: Franci Davenport CNP Consults: 12/25/17 07:44 Consult to Cardiology [CONS] Routine Comment: Consulting Provider: Cardiology [place] Reason for Consult: NSTEMI Time Notified: 07:44 Call Completed: Yes 12/27/17 16:55 Consult to Gastroenterology [CONS] Routine Consulting Provider: Gastroenterology [place] Reason for Consult: Iron deficiency anemia. Hb of 10.5 in September; currently 7.5. Time Notified: 16:57 Call Completed: Yes Discharging clinician: Chase Zepeda Anticipated date of discharge: 12/29/17 - Constitutional Vitals: Temp Pulse Resp BP Pulse Ox 98.0 F 70 18 127/63 98 12/29/17 14:58 12/29/17 15:45 12/29/17 15:45 12/29/17 15:45 12/29/17 15:45 General appearance: Present: A&O X 3, no acute distress, answers questions appropriately - Patient Status Disposition: Home, Self-Care Condition: Fair Functional capacity at discharge: independent ambulation Overall status at discharge: patient is progressing back to baseline - Discharge Instructions Follow Up With: Franci Davenport CNP [Primary Care Provider] - Additional Instructions: CBC - in 1 week; results to Dr. MANCILLA. Follow-up with Dr. MANCILLA - in 10-14 days. C. cath -- when the patient is cleared by Dr. MANCILLA. - Diet and Activity Activity: increase activity as tolerated Diet: diabetic diet - VTE Documentation of Mechanical Device: Intermittent pneumatic compression device
== END 2017-12-29 17:47 | disposition home or self-care (01) | DRG 191 ==
LOC: 2ANU → SUATTDRO 12-25 00:20 → 2ANU 12-26 14:13
PROVIDERS: ADMIT Internal Medicine; ATTEND Internal Medicine
PROC: ENDOEBX (2017-12-28 13:30)

== ENCOUNTER 2018-01-13 00:02 | Inpatient (IN) ==
[2018-01-13] MEDS ORDERED: *HR* HYDROcodone/Acet 7.5/325 mg TABLET PO ONE (04:58)
[2018-01-13] MEDS ORDERED: Naloxone 0.4 MG/ML INJ IVP PRN (05:06)
[2018-01-13] MEDS ORDERED: Acetaminophen 325 MG TABLET PO PRN (05:06)
--- NOTE | 2018-01-13 05:23 | Internal Med History&Physical ---
Date of Encounter: 01/13/18 Time of Encounter: 05:11 Internal Medicine - H&P: HPI Chief complaint: melena and coffee ground emesis Admitted From: Hospital to Hospital Transfer Plans for Post Hospital Care: Home History of present illness: Ms. Felix is a 67 year old female with CAD post CABG on plavix transferred from [facility] for coffee ground emesis and melena. She was recently discharged from [place] on 12-29 - while she was admitted for chest pain she would found to be anemia at 8.4 and underwent endoscope and colonoscopy which did not give a source for bleeding . Her anemia improved with most recent HgB 9.3 - she reports compliance with her iron supplement. She describes an achy epigastric pain and nausea. Reported 3 days of loose tarry black stools with multiple BM per day. Today she started vomiting a dark coffee ground and presented to [facility] ED. At [facility] she was found to have elevated lactic acid 3.7 and given IVF and started on empiric vancomycin and zosyn. WBC 16.5 Her most significant pain is her chronic back pain for which she takes gabapentin 800 tid and norco 7.5 q 6 hr - later confirmed in [facility]. She is currently crying and wiggling in bed - begging for her pain medication. She describes and achy pain in low back that is the same was her chronic pain. Her has medical history included COPD, RA, OA and fibromylgia. Patient reports COPD exacerbation with increase cough, mucus production, and increased shortness of breath from baseline onset one week - Per PCP notes state bronchitis and started 5 day steroid burst and doxycycline for which she has one dose left. CT chest, abd, and pelvis: known cavity mass in RLL - emphysema noted but no pleural effusion. Normal labs at [facility]: EKG UA, troponin, lipase, magnesium, TSH, and CMP - except for hyponatremia at 134. Per [facility] Note she recently started DMARD. Past Med Surg Social Fam HX - Past Medical History Medical history: arthritis, COPD, coronary artery disease, fibromyalgia, GERD, hyperlipidemia, hypertension, myocardial infarction, osteoporosis, RA, renal disease Additional medical history: irregular heart Psychiatric history: anxiety, depression, panic disorder, PTSD, other - Past Surgical History Surgical History: angioplasty/stent, , cholecystectomy, coronary bypass (CABG), knee replacement, orthopedic, other, pacemaker/AICD, other - Social History Smoking Status: Current some day smoker Smokeless Tobacco Status: No Alcohol use: none Drug use: none Internal Medicine - H&P: Meds Alprazolam [Xanax] 2 mg PO TID 02/25/16 [History] Aspirin 81 mg PO DAILY 02/25/16 [History] Cholecalciferol (D-3) [Vitamin D] 2,000 unit PO DAILY 02/25/16 [History] Clopidogrel [Plavix] 75 mg PO DAILY 02/25/16 [History] Colestipol HCl [Colestid] 2 gm PO BID 02/25/16 [History] Fluticasone Propionate Nasal [Flonase] 50 mcg NS DAILY 02/25/16 [History] Ipratropium/Albuterol Sulfate [Combivent Respimat Inhal [place]] 2 puff IH DAILY 02/25/16 [History] Oxybutynin Chloride [Ditropan Xl] 10 mg PO DAILY 02/25/16 [History] hydroCHLOROthiazide [Hydrochlorothiazide] 25 mg PO DAILY 02/25/16 [History] Atorvastatin [Lipitor] 40 mg PO HS 04/27/16 [History] Cyanocobalamin (B-12) [Vitamin B12] 1,000 mcg PO DAILY 04/27/16 [History] Folic Acid 1 mg PO DAILY 04/27/16 [History] Lactose-Reduced Food [Boost] 237 ml PO TID 04/27/16 [History] Loratadine [Claritin] 10 mg PO DAILY 04/27/16 [History] [place]-3/Dha/Epa/Fish Oil [Fish Oil 1,000 mg Softgel] 1,000 mg PO DAILY 04/27/16 [History] cloNIDine HCl [CloNIDine HCl] 0.1 mg PO DAILY PRN 04/27/16 [History] ALPRAZolam [Xanax 1 MG Tablet] 1 - 2 mg PO DAILY PRN 12/25/17 [History] Cyclobenzaprine [Flexeril] 10 mg PO TID PRN 12/25/17 [History] Etanercept [Enbrel [place]] 50 mg SQ QWEEK 12/25/17 [History] Gabapentin [Neurontin] 800 mg PO QID 12/25/17 [History] Lisinopril [Zestril] 5 mg PO DAILY 12/25/17 [History] Methotrexate Sodium/PF [Methotrexate 25 mg/ml Vial] 20 mg IM QWEEK 12/25/17 [ History] Mirtazapine [Remeron] 45 mg PO HS 12/25/17 [History] Pantoprazole Sodium [Protonix] 40 mg PO DAILY 12/25/17 [History] Paroxetine HCl [Paxil] 40 mg PO DAILY 12/25/17 [History] Potassium Chloride [K-Tab ER] 10 meq PO BID 12/25/17 [History] amLODIPine [Norvasc] 5 mg PO DAILY 12/25/17 [History] metFORMIN [Glucophage] 500 mg PO DAILY 12/25/17 [History] Albuterol Neb [Proventil Neb] 2.5 mg IH Q6HR PRN #0 12/29/17 [Rx] Ferrous Gluconate 324 mg PO BID 30 Days #60 tablet 12/29/17 [Rx] Levofloxacin [Levaquin] 500 mg PO DAILY 5 Days #5 tablet 12/29/17 [Rx] Metoprolol XL (24 HR) Succ [Toprol Xl] 25 mg PO DAILY 30 Days #30 tab.er.24h [Rx] predniSONE [PredniSONE] 20 mg PO QAM 5 Days #5 tablet 12/29/17 [Rx] 3 Allergy/AdvReac Type Severity Reaction Status Date / Time azithromycin Allergy See Verified 06/10/16 09:14 Comments clarithromycin [From Biaxin] Allergy See Verified 06/10/16 09:14 Comments fluconazole [From Diflucan] Allergy See Verified 06/10/16 09:14 Comments Hydromorphone [From Dilaudid] Allergy Hives Verified 06/10/16 09:14 Iodinated Contrast- Oral and Allergy See Verified 06/10/16 09:14 IV Dye Comments [Iodinated Contrast Media - IV Dye] morphine Allergy See Verified 06/10/16 09:14 Comments propoxyphene Allergy See Verified 06/10/16 09:14 [From Darvocet-N] Comments naproxen AdvReac See Verified 06/10/16 09:14 Comments All Systems PM: A 10-system review of systems was performed and is negative for pertinent findings except as documented above in the HPI. Review of systems: patient describes unbearable pain in her mid and low back to left ribs that is worse then her abdominal pain - Constitutional Constitutional: fatigue, no falls - EENT Eyes: change in vision, no blurry vision Additional comments: chronic with left eye worse - Cardiovascular Cardiovascular ROS IM: dyspnea, no chest pain, no lightheadedness - Respiratory Respiratory: cough, dyspnea, wheezing, chest congestion, change in phlegm color - Gastrointestinal Gastrointestinal: abdominal pain, constipation, diarrhea, nausea, vomiting - Genitourinary Genitourinary: no dysuria, no urinary frequency, no urinary incontinence - Musculoskeletal Musculoskeletal ROS IM: arthralgias, back pain, muscle cramps - Neurological Neurological ROS: no dizziness, no frequent falls, no headache(s), no numbness, no tingling - Constitutional Vitals: Temp Pulse Resp BP Pulse Ox 97.6 F 68 16 127/68 96 01/13/18 03:45 01/13/18 03:45 01/13/18 03:45 01/13/18 03:45 01/13/18 03:45 General appearance: Present: mild distress, A&O X 3, obese Exam: trashing in bed due to pain - Head Head exam: Present: atraumatic, normocephalic - ENT ENT exam: Present: mucous membranes dry, normal oropharynx - Respiratory Respiratory exam: Present: CTAB. Absent: rales, respiratory distress, wheezes - Cardiovascular Cardiovascular exam: Present: +S1, +S2, tachycardia - GI/Abdominal GI/Abdominal exam: Present: normal bowel sounds, soft, tenderness. Absent: guarding, mass Additional comments: diffuse abdominal tenderness worse in epigastric region - Extremities Exam Extremities exam: Present: full ROM, radial pulses palpable and symmetrical. Absent: calf tenderness, pedal edema - Psychiatric Psychiatric exam: Present: agitated, anxious - Expanded Psychiatric Exam Focused psych exam: Present: perseverating - Assessment and plan (1) Melena Current Visit: Yes Status: Acute Assessment and plan: Melena alone may be result of Iron supplement but some concern for GI bleed given dark emesis - EGD and colonscopy normal on 12-29- advised repeat in 5 years - consult GI as recently seen patient - continue plavix but continue to monitor HgB (2) Anemia Current Visit: No Status: Acute Assessment and plan: HgB 9.3- improved from last admit - repeat CBC Qualifiers: Anemia type: unspecified type Qualified Code(s): D64.9 - Anemia, unspecified (3) COPD (chronic obstructive pulmonary disease) with emphysema Current Visit: No Status: Chronic Assessment and plan: suspect COPD exacerbation over PNA given CT but lactic acid elevated - discontinue vanc/zosyn - recheck lactic acid - continue home inhalers and nebulizer q 6 prn - continue O2 at night or sleeping Qualifiers: Emphysema type: panlobular Qualified Code(s): J43.1 - Panlobular emphysema (4) Chronic post-traumatic stress disorder (PTSD) Current Visit: No Status: Chronic Assessment and plan: continue Paxil (5) Lactic acidemia Current Visit: Yes Status: Acute Assessment and plan: Lactic Acid 3.7 with out clear source of infection with CT Chest no consolidation and UA negative. - repeat (6) DVT prophylaxis Current Visit: No Status: Acute Assessment and plan: continue plavix (7) Cavitary lesion of lung Current Visit: No Status: Acute Assessment and plan: already scheduled for out patient f/u - Time Spent With Patient Total time spent is greater than 50% in coordination of care (as documented) at patient's floor/unit and/or counseling patient: Greater than 35 minutes
[2018-01-13] MEDS ORDERED: Albuterol 2.5 MG/3 ML NEBULIZER IH PRN (06:23)
[2018-01-13] MEDS ORDERED: cloNIDine HCl 0.1 MG TABLET PO PRN (06:23)
[2018-01-13 07:28] LABS: Basophils % 0.2 %; Eosinophils # 0.2 K/mcL (0.0-0.6); Eosinophils % 1.1 %; Hematocrit 30.9 % (35.3-44.9); Hemoglobin 9.1 g/dL (11.5-15.4); Immature Granulocytes % 0.4 % (0-4); Lymphocytes # 3.8 K/mcL (0.6-4.6); Lymphocytes % 23.6 %; Mean Corpuscular HGB Conc 29.4 g/dL (31.6-35.5); Mean Corpuscular Hemoglobin 24.9 pg (28.0-33.3); Mean Corpuscular Volume 84.7 fL (83.0-100.0); Mean Platelet Volume 9.1 fL (9.4-12.4); Monocytes # 0.7 K/mcL (0.0-1.3); Monocytes % 4.6 %; Neutrophils # 11.2 K/mcL (1.6-8.9); Platelet Count 409 K/mcL (140-400); Red Blood Count 3.65 M/mcL (3.82-4.97); Red Cell Distribution Width 26.6 % (11.5-14.5); Segmented Neutrophils % 70.1 %
[2018-01-13 07:58] LABS: Anisocytosis 2+ (Not Present); Hypochromasia Present (Not Present); Platelet Estimate Normal (Normal)
[2018-01-13 07:59] LABS: Microcytosis Present (Not Present)
--- NOTE | 2018-01-13 08:47 | Event Note ---
Date of Encounter: 01/13/18 Time of Encounter: 08:45 Patient was seen and evaluated earlier this am per hospitalist. Currently no active bleeding noted complains of back pain. Resumed home medications. NPO awaiting GI recommendations Hemodynamically stable at this time .
[2018-01-13] MEDS: Loratadine 10 MG TABLET PO SCH (09:31)
[2018-01-13] MEDS: Cyanocobalamin (B-12) 1,000 MCG TABLET PO SCH (09:31)
[2018-01-13] MEDS: Gabapentin 400 MG CAPSULE PO SCH ×4 (09:31→21:41)
[2018-01-13] MEDS: amLODIPine 5 MG TABLET PO SCH (09:31)
[2018-01-13] MEDS: Cholecalciferol (D-3) 1,000 UNIT TABLET PO SCH (09:31)
[2018-01-13] MEDS: Fluticasone Propionate Nasal 50 MCG/SPRAY BOTTLE NS SCH (09:31)
[2018-01-13] MEDS: Metoprolol XL (24 HR) Succ 25 MG TAB.ER.24H PO SCH (09:31)
[2018-01-13] MEDS: Folic Acid 1 MG TABLET PO SCH (09:31)
[2018-01-13] MEDS: hydroCHLOROthiazide 25 MG TABLET PO SCH (09:32)
[2018-01-13] MEDS ORDERED: *HR* HYDROcodone/Acet 5/325 mg TABLET PO PRN (11:00)
[2018-01-13] MEDS: Ipratropium/Albuterol Neb 3 ML IH SCH ×4 (11:33→21:50)
--- NOTE | 2018-01-13 12:16 | Gastroenterology Consult Note ---
<SchmidtJim randall Georgiana - Last Filed: 01/13/18 12:25> Date of Encounter: 01/13/18 Time of Encounter: 10:50 - Assessment and plan (1) Anemia Current Visit: No Status: Acute Assessment and plan: Hgb 9.1 which is improved over previous admission. Continue to monitor CBC and transfuse PRBC as needed. Qualifiers: Anemia type: unspecified type Qualified Code(s): D64.9 - Anemia, unspecified (2) Melena Current Visit: Yes Status: Acute Assessment and plan: Last EGD 12/28/2017 showed a large hiatal hernia with Noah erosions at the diaphragmatic hiatus. Will consult surgery to evaluate for possible hiatal hernia repair. Appreciate recommendations. - Time Spent With Patient Total time spent is greater than 50% in coordination of care (as documented) at patient's floor/unit and/or counseling patient: GI History of Present Illness - Data of Consult Patient: known to practice within the last 3 years Consult date: 01/13/18 Requesting Physician: Agustín Pace MD - Consult Narrative Reason for consult: Melena, coffee ground emesis History of present illness: Ms. Felix is a 67 year old female with PMHx arthritis, cardiomyopathy, CHF, COPD, CAD s/p CABG, fibromyalgia, GERD, HLD, HTN, VT, who was transferred from [facility] for coffee gound emesis and melena. She was recently discharged from [facility] on 12/29, she was found to be anemic and underwent EGD and colonoscopy. Three days prior to this admission, she reports loose black tarry stools, and the day of admission she began vomiting dark coffee grounds and presented to ED at [facility]. Procedures: Colonoscopy 12/29/2017 Dr. Melendez: Stool in entire examined colon, repeat 5 years. EGD 12/28/2017 Dr. Melendez: Large hiatal hernia, the hiatal narrowing was 36 cm from the incisors and there were erosions at the diaphragmatic hiatus consistent with Noah erosions. Chronic gastritis. Colonoscopy 12/28/2017 Dr. Melendez: Poor prep NSAIDs: ASA Anticoagulation: Plavix Past Med Surg Social Fam HX - Past Medical History Medical history: arthritis, COPD, coronary artery disease, fibromyalgia, GERD, hyperlipidemia, hypertension, myocardial infarction, osteoporosis, RA, renal disease Additional medical history: irregular heart Psychiatric history: anxiety, depression, panic disorder, PTSD, other - Past Surgical History Surgical History: angioplasty/stent, , cholecystectomy, coronary bypass (CABG), knee replacement, orthopedic, other, pacemaker/AICD, other - Social History Smoking Status: Current some day smoker Smokeless Tobacco Status: No Alcohol use: none Drug use: none - Gastrointestinal Gastrointestinal: Present: as per HPI - Constitutional Constitutional: as per HPI - EENT Eyes: as per HPI Ears: Present: as per HPI Nose, mouth and throat: Present: as per HPI - Cardiovascular Cardiovascular ROS: Present: as per HPI - Respiratory Respiratory IM: Present: as per HPI - Genitourinary Genitourinary: Absent: change in color, Urinary frequency - Neurological ROS Neurological GI: Present: as per HPI - Hematologic/Lymphatic Hematologic/Lymphatic pediatric: Present: as per HPI - Musculoskeletal Musculoskeletal ROS GI: Present: as per HPI - Integumentary Integumentary GI: Present: as per HPI - Psychiatric ROS Psychiatric GI: Present: as per HPI - Endocrine Endocrine IM: Present: as per HPI - Constitutional Vitals: Temp Pulse Resp BP Pulse Ox 97.9 F 64 14 106/73 95 01/13/18 10:10 01/13/18 10:10 01/13/18 10:10 01/13/18 10:10 01/13/18 10:10 General appearance: Present: cooperative, A&O X 3, no acute distress, answers questions appropriately - Head Head exam: Present: atraumatic, normocephalic - Eye Eye exam: Present: normal appearance, sclera anicteric - ENT ENT exam: Present: mucous membranes dry - Neck Neck exam general surgery: Present: normal inspection, trachea midline - Respiratory Respiratory exam: Present: decreased breath sounds, CTAB. Absent: rales, rhonchi - Cardiovascular Cardiovascular exam: Present: RRR, +S1, +S2 - GI/Abdominal GI/Abdominal exam: Present: soft, tenderness (epigastric), no peritoneal signs. Absent: distended, firm, guarding - Rectal Rectal exam: Present: deferred - Extremities Exam Extremities exam: Present: warm - Neurological Exam Neurological exam: Present: no focal deficits - Psychiatric Psychiatric exam: Present: normal affect, normal mood - Skin Skin exam: Present: dry, intact, normal color, warm Results - Labs CBC & Chem 7: 01/13/18 07:12 Labs: Entire Visit Hgb 9.1 g/dL (11.5-15.4) L 01/13/18 07:12 Hct 30.9 % (35.3-44.9) L 01/13/18 07:12 <Kristi Melendez - Last Filed: 01/13/18 16:46> Date of Encounter: 01/13/18 - Time Spent With Patient Total time spent is greater than 50% in coordination of care (as documented) at patient's floor/unit and/or counseling patient: GI History of Present Illness - Data of Consult Requesting Physician: Agustín Pace MD - Consult Narrative History of present illness: Ms. Felix is a 67 year old female - Constitutional Vitals: Temp Pulse Resp BP Pulse Ox 98.1 F 71 17 99/64 95 01/13/18 14:16 01/13/18 14:16 01/13/18 15:47 01/13/18 14:16 01/13/18 15:47 Results - Labs CBC & Chem 7: 01/13/18 07:12 Labs: Entire Visit Hgb 9.1 g/dL (11.5-15.4) L 01/13/18 07:12 Hct 30.9 % (35.3-44.9) L 01/13/18 07:12 - Impressions Impressions Chest CT 01/13/18 11:15 IMPRESSION: There is a large hiatal hernia at the GE junction. Roughly 1/2 of the stomach is intrathoracic. The patient underwent previous biopsy of a right lung nodule back in June 2016. At the site of previous biopsy, a small cavitary lesion has formed, stable from the most recent chest CT performed in October 2017. 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 No convincing evidence of an acute cardiopulmonary process. No acute intra-abdominal process is identified. Status post cholecystectomy and hysterectomy. D/ / Cisco Mata MD / Cisco Mata MD Interpreting Provider: Cisco Mata MD Abdomen CT 01/13/18 11:27 IMPRESSION: There is a large hiatal hernia at the GE junction. Roughly 1/2 of the stomach is intrathoracic. The patient underwent previous biopsy of a right lung nodule back in June 2016. At the site of previous biopsy, a small cavitary lesion has formed, stable from the most recent chest CT performed in October 2017. 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 No convincing evidence of an acute cardiopulmonary process. No acute intra-abdominal process is identified. Status post cholecystectomy and hysterectomy. D/ / Cisco Mata MD / Cisco Mata MD Interpreting Provider: Cisco Mata MD - Attending Attestation I have personally performed a face to face evaluation on this patient. I have reviewed and agree with the care plan. History and Exam by me shows: Pt seen Pt mild epiagstric tanderness. A: Pt with anemia with large HH and noah eroisons in hernia on last EGD. Rec; Hernia repair to help with her anemia half-way and her GERD..
[2018-01-13] MEDS: Omega-3/Dha/Epa/Fish Oil [Fish Oil 1,000 Mg Softgel] PO SCH (12:45)
--- NOTE | 2018-01-13 13:20 | General Surgery Consult Note ---
<Batsheva Gomez - Last Filed: 01/13/18 13:48> Date of Encounter: 01/13/18 Time of Encounter: 13:00 Assessment and Plan (1) Gastric volvulus Current Visit: Yes Status: Acute May have full liquid diet only NPO after midnight Patient will require urgent surgical intervention for repair of her gastic volulus and hiatal hernia with Dr. Lemus- Open due to surgical history and large amount of stomach within the chest cavity. IV fluids Supportive care PPI therapy BID Smoking cessation education Cardiology consult for risk stratification- discussed with Dr. Fischer (2) Hiatal hernia Current Visit: Yes Status: Chronic At least 1/2 of stomach is intra-thoracic May have full liquid diet only NPO after midnight Patient will require urgent surgical intervention for repair of her gastic volulus and hiatal hernia with Dr. Lemus IV fluids Supportive care PPI therapy BID Smoking cessation education Cardiology consult for risk stratification- discussed with Dr. Fischer (3) GERD (gastroesophageal reflux disease) Current Visit: Yes Status: Chronic PPI therapy BID Possible Mireya fundoplication with repair of gastric volvulus Qualifiers: Esophagitis presence: without esophagitis Qualified Code(s): K21.9 - Gastro -esophageal reflux disease without esophagitis (4) Acute blood loss anemia Current Visit: Yes Status: Acute Hgb- 8.5>9.1 Monitor Hgb/Hct Supportive care Repair gastric volvulus and hiatal hernia Transfuse as indicated per the medicine service (5) Melena Current Visit: Yes Status: Acute Hgb- 8.5>9.1 Monitor Hgb/Hct Supportive care Repair gastric volvulus and hiatal hernia Transfuse as indicated per the medicine service (6) COPD (chronic obstructive pulmonary disease) Current Visit: Yes Status: Acute Smoking cessation education Continue nicotine patch IS every 1 hour while awake Duonebs every 6 hours scheduled Qualifiers: COPD type: unspecified COPD Qualified Code(s): J44.9 - Chronic obstructive pulmonary disease, unspecified History of Present Illness Consult date: 01/13/18 Reason for consult: other (Hiatal hernia with gastric volvulus) Requesting physician: Kristi Melendez History of present illness: Mrs. Felix is a 67 year old female with a past medical history significant for arthritis, COPD, coronary artery disease, fibromyalgia, GERD, hyperlipidemia , hypertension, myocardial infarction, osteoporosis, RA, renal disease, irregular heart beat. She presented to [facility] last evening with recurrent coffee ground emesis and melena. She was admitted to [facility] approximately 2 weeks ago with similar complaints. She also complains of significant reflux. She did have an EGD on 12/28/17 which showed a large hiatal hernia with erosions at the diaphragmatic hiatus consistent with avel erosions. The EGD was complete per Dr. Melendez. The patient continues to have acute blood loss anemia. She reports epigastric discomfort. She denies any known weight loss. She denies any changes in bowel habits. She denies any current chest pain. Her shortness of breath is at her baseline. She denies any difficulty with urination. We have been asked to see and evaluate the patient for recommendations. The patient does have a cardiac history and is s/[place] CAB[place] [address] Juve Husain. She had her last echo complete earlier this month during admission. She is unclear on when any further cardiac work-up has been complete. Past Med Surg Social Fam HX - Past Medical History Source: patient, old records reviewed Medical history: arthritis, COPD, coronary artery disease, DVT ( after knee surgery), diabetes, fibromyalgia, GERD, hyperlipidemia, hypertension, migraine, myocardial infarction, osteoporosis, RA, renal disease Additional medical history: irregular heart Psychiatric history: anxiety, depression, panic disorder, PTSD, other - Past Surgical History Surgical History: angioplasty/stent (2003- TEREZA-RCA occluded-RCA HUNG), , cholecystectomy, coronary bypass (CABG), herniorrhaphy (with mesh placement), hysterectomy, knee replacement (removal and revision of Right total knee), orthopedic, other (CTR left wrist/hand), pacemaker/AICD (2008- dual chamber pacemaker), JAVIER/BSO (with bladder sling), other (EGD/Colonoscopy 12/2017) - Social History Smoking Status: Current some day smoker Smokeless Tobacco Status: No Alcohol use: none Drug use: none Current living situation: Home - Independent Activity Level: Independent ambulation - Family History Brother Living Status: Still Living Hx Family Cardiac Disorders: Yes (HTN) Father Living Status: Age at : 31 Cause of : malignant brain tumor Mother Living Status: Still Living Hx Family Cardiac Disorders: Yes (HTN, CAD) Hx Family Endocrine Disorder: Yes (Diabetes Mellitus) Hx Family Neurologic Disorders: Yes (Alzheimers) Sister Living Status: Still Living Hx Family Cardiac Disorders: Yes (HTN) Hx Family Cancer: Yes (skin) Medications and Allergies Alprazolam [Xanax] 2 mg PO TID 02/25/16 [History] Aspirin 81 mg PO DAILY 02/25/16 [History] Cholecalciferol (D-3) [Vitamin D] 2,000 unit PO DAILY 02/25/16 [History] Clopidogrel [Plavix] 75 mg PO DAILY 02/25/16 [History] Colestipol HCl [Colestid] 2 gm PO BID 02/25/16 [History] Fluticasone Propionate Nasal [Flonase] 50 mcg NS DAILY 02/25/16 [History] Ipratropium/Albuterol Sulfate [Combivent Respimat Inhal [place]] 2 puff IH DAILY 02/25/16 [History] Oxybutynin Chloride [Ditropan Xl] 10 mg PO DAILY 02/25/16 [History] hydroCHLOROthiazide [Hydrochlorothiazide] 25 mg PO DAILY 02/25/16 [History] Atorvastatin [Lipitor] 40 mg PO HS 04/27/16 [History] Cyanocobalamin (B-12) [Vitamin B12] 1,000 mcg PO DAILY 04/27/16 [History] Folic Acid 1 mg PO DAILY 04/27/16 [History] Lactose-Reduced Food [Boost] 237 ml PO TID 04/27/16 [History] Loratadine [Claritin] 10 mg PO DAILY 04/27/16 [History] Fischer-3/Dha/Epa/Fish Oil [Fish Oil 1,000 mg Softgel] 1,000 mg PO DAILY 04/27/16 [History] cloNIDine HCl [CloNIDine HCl] 0.1 mg PO DAILY PRN 04/27/16 [History] ALPRAZolam [Xanax 1 MG Tablet] 1 - 2 mg PO DAILY PRN 12/25/17 [History] Cyclobenzaprine [Flexeril] 10 mg PO TID PRN 12/25/17 [History] Etanercept [Enbrel Sureclick] 50 mg SQ QWEEK 12/25/17 [History] Gabapentin [Neurontin] 800 mg PO QID 12/25/17 [History] Lisinopril [Zestril] 5 mg PO DAILY 12/25/17 [History] Methotrexate Sodium/PF [Methotrexate 25 mg/ml Vial] 20 mg IM QWEEK 12/25/17 [ History] Mirtazapine [Remeron] 45 mg PO HS 12/25/17 [History] Pantoprazole Sodium [Protonix] 40 mg PO DAILY 12/25/17 [History] Paroxetine HCl [Paxil] 40 mg PO DAILY 12/25/17 [History] Potassium Chloride [K-Tab ER] 10 meq PO BID 12/25/17 [History] amLODIPine [Norvasc] 5 mg PO DAILY 12/25/17 [History] metFORMIN [Glucophage] 500 mg PO DAILY 12/25/17 [History] Albuterol Neb [Proventil Neb] 2.5 mg IH Q6HR PRN #0 12/29/17 [Rx] Ferrous Gluconate 324 mg PO BID 30 Days #60 tablet 12/29/17 [Rx] Metoprolol XL (24 HR) Succ [Toprol Xl] 25 mg PO DAILY 30 Days #30 tab.er.24h [Rx] 3 Allergy/AdvReac Type Severity Reaction Status Date / Time azithromycin Allergy See Verified 06/10/16 09:14 Comments clarithromycin [From Biaxin] Allergy See Verified 06/10/16 09:14 Comments fluconazole [From Diflucan] Allergy See Verified 06/10/16 09:14 Comments Hydromorphone [From Dilaudid] Allergy Hives Verified 06/10/16 09:14 Iodinated Contrast- Oral and Allergy See Verified 06/10/16 09:14 IV Dye Comments [Iodinated Contrast Media - IV Dye] morphine Allergy See Verified 06/10/16 09:14 Comments propoxyphene Allergy See Verified 06/10/16 09:14 [From Darvocet-N] Comments naproxen AdvReac See Verified 06/10/16 09:14 Comments Review of Systems All systems PM: reviewed and no additional remarkable complaints except as stated (in the HPI) All systems PM: The remainder of the systems were reviewed and are negative General Surgery Exam Initial Vital Signs Temp Pulse Resp BP Pulse Ox 97.6 F 68 16 127/68 96 01/13/18 03:45 01/13/18 03:45 01/13/18 03:45 01/13/18 03:45 01/13/18 03:45 - General physical appearance well developed, well nourished, no distress, no pain - Eyes PERRL, normal ocular movement - ENT normal mucosa, atraumatic, normocephalic - Neck trachea midline - Respiratory normal respiratory effort, clear to auscultation, other (diminished bibasilar bases) - Cardiovascular Cardiovascular exam: Present: RRR - Abdomen Abdomen general surgery: Present: bowel sounds present, soft, tender Abdominal Tenderness: Present: epigastic - Integumentary Integumentary general surgery: Present: warm and dry - Neurologic Present: CN 2-12 grossly intact - Musculoskeletal Present: normal gait, normal posture - Psychiatric Psychiatric general surgery: Present: appropriate, oriented to person, oriented to place, oriented to time, speech is normal, memory intact Exam Initial Vital Signs Temp Pulse Resp BP Pulse Ox 97.6 F 68 16 127/68 96 01/13/18 03:45 01/13/18 03:45 01/13/18 03:45 01/13/18 03:45 01/13/18 03:45 Results - Labs 01/13/18 07:12 Abnormal lab results WBC 16.0 K/mcL (4.3-11.1) H 01/13/18 07:12 RBC 3.65 M/mcL (3.82-4.97) L 01/13/18 07:12 Hgb 9.1 g/dL (11.5-15.4) L 01/13/18 07:12 Hct 30.9 % (35.3-44.9) L 01/13/18 07:12 MCH 24.9 pg (28.0-33.3) L 01/13/18 07:12 MCHC 29.4 g/dL (31.6-35.5) L 01/13/18 07:12 RDW 26.6 % (11.5-14.5) H 01/13/18 07:12 Plt Count 409 K/mcL (140-400) H 01/13/18 07:12 MPV 9.1 fL (9.4-12.4) L 01/13/18 07:12 Neutrophils # 11.2 K/mcL (1.6-8.9) H 01/13/18 07:12 Hypochromasia Present (Not Present) A 01/13/18 07:12 Anisocytosis 2+ (Not Present) A 01/13/18 07:12 Microcytosis Present (Not Present) A 01/13/18 07:12 All other labs normal. - Imaging CT scan - abdomen: report reviewed CT scan - chest: report reviewed Additional studies: Chest CT 01/13/18 11:15 IMPRESSION: There is a large hiatal hernia at the GE junction. Roughly 1/2 of the stomach is intrathoracic. The patient underwent previous biopsy of a right lung nodule back in June 2016. At the site of previous biopsy, a small cavitary lesion has formed, stable from the most recent chest CT performed in October 2017. 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 No convincing evidence of an acute cardiopulmonary process. No acute intra-abdominal process is identified. Status post cholecystectomy and hysterectomy. D/ / Cisco Mata MD / Cisco Mata MD Interpreting Provider: Cisco Mata MD Abdomen CT 01/13/18 11:27 IMPRESSION: There is a large hiatal hernia at the GE junction. Roughly 1/2 of the stomach is intrathoracic. The patient underwent previous biopsy of a right lung nodule back in June 2016. At the site of previous biopsy, a small cavitary lesion has formed, stable from the most recent chest CT performed in October 2017. 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 No convincing evidence of an acute cardiopulmonary process. No acute intra-abdominal process is identified. Status post cholecystectomy and hysterectomy. D/ / Cisco Maat MD / Cisco Mata MD Interpreting Provider: Cisco Mata MD - Attending Attestation For this encounter, I have reviewed the TEACHER ADVISOR or PA documentation, treatment plan, and medical decision making; and I have had face to face time with this patient. <Phillip Lemus - Last Filed: 01/13/18 18:49> Date of Encounter: 01/13/18 Assessment and Plan (1) Melena Current Visit: Yes Status: Acute (2) Hiatal hernia Current Visit: Yes Status: Chronic (3) GERD (gastroesophageal reflux disease) Current Visit: Yes Status: Chronic Qualifiers: Esophagitis presence: without esophagitis Qualified Code(s): K21.9 - Gastro -esophageal reflux disease without esophagitis (4) Gastric volvulus Current Visit: Yes Status: Acute (5) Acute blood loss anemia Current Visit: Yes Status: Acute (6) COPD (chronic obstructive pulmonary disease) Current Visit: Yes Status: Acute Qualifiers: COPD type: unspecified COPD Qualified Code(s): J44.9 - Chronic obstructive pulmonary disease, unspecified Review of Systems All systems PM: The remainder of the systems were reviewed and are negative General Surgery Exam Initial Vital Signs Temp Pulse Resp BP Pulse Ox 97.6 F 68 16 127/68 96 01/13/18 03:45 01/13/18 03:45 01/13/18 03:45 01/13/18 03:45 01/13/18 03:45 Exam Initial Vital Signs Temp Pulse Resp BP Pulse Ox 97.6 F 68 16 127/68 96 01/13/18 03:45 01/13/18 03:45 01/13/18 03:45 01/13/18 03:45 01/13/18 03:45 Results - Labs 01/13/18 07:12 Abnormal lab results WBC 16.0 K/mcL (4.3-11.1) H 01/13/18 07:12 RBC 3.65 M/mcL (3.82-4.97) L 01/13/18 07:12 Hgb 9.1 g/dL (11.5-15.4) L 01/13/18 07:12 Hct 30.9 % (35.3-44.9) L 01/13/18 07:12 MCH 24.9 pg (28.0-33.3) L 01/13/18 07:12 MCHC 29.4 g/dL (31.6-35.5) L 01/13/18 07:12 RDW 26.6 % (11.5-14.5) H 01/13/18 07:12 Plt Count 409 K/mcL (140-400) H 01/13/18 07:12 MPV 9.1 fL (9.4-12.4) L 01/13/18 07:12 Neutrophils # 11.2 K/mcL (1.6-8.9) H 01/13/18 07:12 Hypochromasia Present (Not Present) A 01/13/18 07:12 Anisocytosis 2+ (Not Present) A 01/13/18 07:12 Microcytosis Present (Not Present) A 01/13/18 07:12 All other labs normal. - Attending Attestation I examined this patient and my medical decision-making was reviewed with the Resident Physician. I agree with the documented findings, disposition and treatment plan as described except to the extent set forth below. The patient is seen and evaluated on afternoon rounds with resident in clinical nurse practitioner. I personally reviewed the CAT scan of the chest. The patient has a large paraesophageal hernia with significant intrathoracic stomach. She has developed recurrent hemorrhagic gastritis in the stomach. This may represent gastric volvulus with venous congestion or arterial ischemia. The patient is currently not having chest pain. She is very symptomatic from gastroesophageal reflux disease and dysphagia. She has multiple indications for immediate repair of the intrathoracic gastric volvulus and paraesophageal hernia. She has a significant cardiac history and I think that cardiac clearance and recommendations on perioperative management is prudent. We will proceed with surgery as soon as patient is cleared. We will plan transabdominal reduction of gastric volvulus repair of hiatal hernia and Mireya fundoplication Phillip Lemus MD FACS
[2018-01-13] MEDS: ALPRAZolam 1 MG TABLET PO PRN ×2 (13:59→21:36)
--- NOTE | 2018-01-13 14:07 | Cardiology Consult Note ---
Date of Encounter: 01/13/18 Time of Encounter: 13:30 Assessment and Plan (1) Pre-operative cardiovascular examination Current Visit: Yes Status: Acute Cardiology consult/pre-operative risk stratification prior to open repair of gastric volvulus and kwame fundoplication. Recent hospitalization d/t acute anemia/GI bleed. Underwent EGD/colonscopy without clear source of bleeding. Recent Cardiology consult d/t mild troponin elevation in the setting of acute GI bleed/anemia--felt to be secondary to demand ischemic d/t preserved LVEF. Chest pain free upon exam, denies chest pain prior to admission. No acute ischemic ECG changes present. TTE 12/25/17: LVEF 65%, normal RV structure and function, no significant valvular dysfunction, normal wall motion. Patient is unable to describe activity of achieving at least 4 METs, reports is fairly sedentary d/t bone spurs in back. Discussed with Dr. Fischer, do not recommend further labs (i.e., troponin) as patient has been recommended to have urgent surgery for GI bleed causing melena/ coffee ground emesis. Patient is an acceptable high-risk surgical candidate to proceed with planned surgery. Recommend betablocker in the perioperative period. (2) Acute blood loss anemia Current Visit: Yes Status: Acute (3) Gastric volvulus Current Visit: Yes Status: Acute Discussion w patient/family: The assessment and plan as outlined above was discussed with the patient and/or family members who expressed understanding and agreement. All questions were answered. Thank you for involving us in the care of your patient. Please call with any questions. The patient will be discussed and reviewed with Dr. Fischer; changes to be made accordingly. History of Present Illness Consult date: 01/13/18 Requesting physician: Batsheva Gomez Consult reason: Preoperative risk stratification Chief complaint: Melena, coffee ground emesis History of present illness: Ms. Felix is a 67 year old female with PMHx significant of CAD s/p 1v CABG 1999 (s/p PCI 2003), HTN, PPM, RA, GERD, tobacco dependency, chronic pain and recent GI bleed who presented as a transfer from [facility] due to melena and coffee ground emesis that has reportedly been ongoing since last hospital discharge a few weeks ago. Patient reports was admitted at [facility] for 6 days, received PRBC infusion and underwent EGD/colonscopy without clear source of bleeding. Symptoms continued to worsen which prompted ED evaluation. No chest pain/discomfort reported. Cardiology consulted for pre-operative risk stratification prior to open repair of gastric volvulus and kwame fundoplication. Prior CV testing: TTE 08/26/06: LVEF 60%, mild-moderately dilated LA, mild TR TTE 01/14/08: LVEF 60%, mildly dilated LA, mild MR TTE 11/19/15: LVEF 60-65%. Moderate DD. Normal wall motion. TTE 12/25/17: LVEF 65%, normal RV structure and function, no significant valvular dysfunction, normal wall motion. Past Med Surg Social Fam HX - Past Medical History Attestation: Yes The following information was validated with the patient. Medical history: arthritis, COPD, coronary artery disease, DVT ( after knee surgery), diabetes, fibromyalgia, GERD, hyperlipidemia, hypertension, migraine, myocardial infarction, osteoporosis, RA, renal disease Additional medical history: irregular heart Psychiatric history: anxiety, depression, panic disorder, PTSD, other - Past Surgical History Surgical History: angioplasty/stent (2003- TEREZA-RCA occluded-RCA HUNG), , cholecystectomy, coronary bypass (CABG), herniorrhaphy (with mesh placement), hysterectomy, knee replacement (removal and revision of Right total knee), orthopedic, other (CTR left wrist/hand), pacemaker/AICD (2008- dual chamber pacemaker), JAVIER/BSO (with bladder sling), other (EGD/Colonoscopy 12/2017) - Social History Smoking Status: Current every day smoker Packs per day: 1 pdd Smokeless Tobacco Status: No Alcohol use: none Drug use: none - Family History Brother Living Status: Still Living Hx Family Cardiac Disorders: Yes (HTN) Father Living Status: Age at : 31 Cause of : malignant brain tumor Mother Living Status: Still Living Hx Family Cardiac Disorders: Yes (HTN, CAD) Hx Family Endocrine Disorder: Yes (Diabetes Mellitus) Hx Family Neurologic Disorders: Yes (Alzheimers) Sister Living Status: Still Living Hx Family Cardiac Disorders: Yes (HTN) Hx Family Cancer: Yes (skin) Medications and Allergies Alprazolam [Xanax] 2 mg PO TID 02/25/16 [History] Aspirin 81 mg PO DAILY 02/25/16 [History] Cholecalciferol (D-3) [Vitamin D] 2,000 unit PO DAILY 02/25/16 [History] Clopidogrel [Plavix] 75 mg PO DAILY 02/25/16 [History] Colestipol HCl [Colestid] 2 gm PO BID 02/25/16 [History] Fluticasone Propionate Nasal [Flonase] 50 mcg NS DAILY 02/25/16 [History] Ipratropium/Albuterol Sulfate [Combivent Respimat Inhal [place]] 2 puff IH DAILY 02/25/16 [History] Oxybutynin Chloride [Ditropan Xl] 10 mg PO DAILY 02/25/16 [History] hydroCHLOROthiazide [Hydrochlorothiazide] 25 mg PO DAILY 02/25/16 [History] Atorvastatin [Lipitor] 40 mg PO HS 04/27/16 [History] Cyanocobalamin (B-12) [Vitamin B12] 1,000 mcg PO DAILY 04/27/16 [History] Folic Acid 1 mg PO DAILY 04/27/16 [History] Lactose-Reduced Food [Boost] 237 ml PO TID 04/27/16 [History] Loratadine [Claritin] 10 mg PO DAILY 04/27/16 [History] Mar[place]-3/Dha/Epa/Fish Oil [Fish Oil 1,000 mg Softgel] 1,000 mg PO DAILY 04/27/16 [History] cloNIDine HCl [CloNIDine HCl] 0.1 mg PO DAILY PRN 04/27/16 [History] ALPRAZolam [Xanax 1 MG Tablet] 1 - 2 mg PO DAILY PRN 12/25/17 [History] Cyclobenzaprine [Flexeril] 10 mg PO TID PRN 12/25/17 [History] Etanercept [Enbrel Sureclick] 50 mg SQ QWEEK 12/25/17 [History] Gabapentin [Neurontin] 800 mg PO QID 12/25/17 [History] Lisinopril [Zestril] 5 mg PO DAILY 12/25/17 [History] Methotrexate Sodium/PF [Methotrexate 25 mg/ml Vial] 20 mg IM QWEEK 12/25/17 [ History] Mirtazapine [Remeron] 45 mg PO HS 12/25/17 [History] Pantoprazole Sodium [Protonix] 40 mg PO DAILY 12/25/17 [History] Paroxetine HCl [Paxil] 40 mg PO DAILY 12/25/17 [History] Potassium Chloride [K-Tab ER] 10 meq PO BID 12/25/17 [History] amLODIPine [Norvasc] 5 mg PO DAILY 12/25/17 [History] metFORMIN [Glucophage] 500 mg PO DAILY 12/25/17 [History] Albuterol Neb [Proventil Neb] 2.5 mg IH Q6HR PRN #0 12/29/17 [Rx] Ferrous Gluconate 324 mg PO BID 30 Days #60 tablet 12/29/17 [Rx] Levofloxacin [Levaquin] 500 mg PO DAILY 5 Days #5 tablet 12/29/17 [Rx] Metoprolol XL (24 HR) Succ [Toprol Xl] 25 mg PO DAILY 30 Days #30 tab.er.24h [Rx] predniSONE [PredniSONE] 20 mg PO QAM 5 Days #5 tablet 12/29/17 [Rx] 3 Allergy/AdvReac Type Severity Reaction Status Date / Time azithromycin Allergy See Verified 06/10/16 09:14 Comments clarithromycin [From Biaxin] Allergy See Verified 06/10/16 09:14 Comments fluconazole [From Diflucan] Allergy See Verified 06/10/16 09:14 Comments Hydromorphone [From Dilaudid] Allergy Hives Verified 06/10/16 09:14 Iodinated Contrast- Oral and Allergy See Verified 06/10/16 09:14 IV Dye Comments [Iodinated Contrast Media - IV Dye] morphine Allergy See Verified 06/10/16 09:14 Comments propoxyphene Allergy See Verified 06/10/16 09:14 [From Darvocet-N] Comments naproxen AdvReac See Verified 06/10/16 09:14 Comments All Systems Review: The remainder of the systems were reviewed and are negative - Cardiovascular Cardiovascular: as per HPI Physical Examination Vital Signs, Last 4 Hours Temp Pulse Resp BP Pulse Ox 01/13/18 10:10 97.9 F 64 14 106/73 95 General: Conversant, No Apparent Distress HEENT: Atraumatic, Normocephaly, Mucus Membranes Moist Neck: No JVD, Normal carotid pulses Cardiac: Reg Rate and Rhythm, Normal S1 and S2, No Murmur Lungs: Normal Breath Sounds, No Wheeze, Rales, Rhonchi Neuro: Alert and responsive, No focal deficits noted Abdomen: Other (mildly distended; tender) Skin: No rashes noted on visualized skin Musculoskeletal: No Chest Wall Tenderness Extremities: No Clubbing, No Cyanosis, No Edema, Normal Pulses Results 01/13/18 07:12 Lab Results 01/13/18 07:12 WBC 16.0 H Hgb 9.1 L Hct 30.9 L Plt Count 409 H Active Medications Acetaminophen (Tylenol) 650 mg PO Q6HR PRN PRN Reason: Mild Pain/Fever Stop: 07/15/18 05:07 Hydrocodone Bitart/Acetaminophen ([place] 5-325 Mg) 1 tab PO Q6H PRN PRN Reason: Moderate Pain Stop: 07/15/18 11:01 Albuterol Sulfate (Proventil Neb) 2.5 mg IH Q6HR PRN; Protocol PRN Reason: Shortness Of Breath/Wheezing Stop: 07/15/18 06:24 Albuterol/Ipratropium (Duoneb) 3 ml IH BID LATOSHA Stop: 07/15/18 10:46 Last Admin: 01/13/18 11:33 Dose: Not Given Albuterol/Ipratropium (Duoneb) 3 ml IH [id number] LATOSHA Stop: 07/15/18 16:01 Alprazolam (Xanax) 1 mg PO BID PRN; Protocol PRN Reason: Anxiety Stop: 07/15/18 13:04 Last Admin: 01/13/18 13:59 Dose: 1 mg Amlodipine Besylate (Norvasc) 5 mg PO DAILY LATOSHA PRN Reason: Protocol Stop: 07/15/18 09:01 Last Admin: 01/13/18 09:31 Dose: 5 mg Clonidine HCl (Clonidine Hcl) 0.1 mg PO DAILY PRN PRN Reason: Hypertension Stop: 07/15/18 06:24 Cyanocobalamin (Vitamin B12) 1,000 mcg PO DAILY LATOSHA Stop: 07/15/18 09:01 Last Admin: 01/13/18 09:31 Dose: 1,000 mcg Cyclobenzaprine HCl (Flexeril) 10 mg PO TID PRN PRN Reason: Muscle Pain Stop: 07/15/18 06:24 Last Admin: 01/13/18 09:31 Dose: 10 mg Diphenhydramine HCl (Benadryl) 50 mg IVP Q8HR PRN PRN Reason: Itching Stop: 07/15/18 11:30 Ferrous Sulfate (Ferrous Sulfate) 325 mg PO BIDWM [facility] Stop: 07/15/18 17:01 Fluticasone Propionate (Flonase) 50 mcg NS DAILY [facility] PRN Reason: Protocol Stop: 07/15/18 09:01 Last Admin: 01/13/18 09:31 Dose: 50 mcg Folic Acid (Folic Acid) 1 mg PO DAILY LATOSHA Stop: 07/15/18 09:01 Last Admin: 01/13/18 09:31 Dose: 1 mg Gabapentin (Neurontin) 800 mg PO QID LATOSHA Stop: 07/15/18 09:01 Last Admin: 01/13/18 13:59 Dose: 800 mg Hydrochlorothiazide (Hydrochlorothiazide) 25 mg PO DAILY [facility] PRN Reason: Protocol Stop: 07/15/18 09:01 Last Admin: 01/13/18 09:32 Dose: Not Given Lisinopril (Zestril) 5 mg PO DAILY [facility] PRN Reason: Protocol Stop: 07/15/18 09:01 Last Admin: 01/13/18 09:31 Dose: 5 mg Loratadine (Claritin) 10 mg PO DAILY [facility] PRN Reason: Protocol Stop: 07/15/18 09:01 Last Admin: 01/13/18 09:31 Dose: 10 mg Menthol/Methyl Salicylate (Bengay) 1 appl TP BID PRN PRN Reason: Pain Stop: 07/15/18 08:43 Metoprolol Succinate (Toprol Xl) 25 mg PO DAILY [facility] Stop: 07/15/18 09:01 Last Admin: 01/13/18 09:31 Dose: 25 mg Mirtazapine (Remeron) 45 mg PO HS [facility] Stop: 07/15/18 21:01 Naloxone HCl (Narcan) 0.4 mg IVP Q2MIN PRN PRN Reason: SEE COMMENTS Stop: 07/15/18 05:07 Omeprazole (Prilosec) 20 mg PO DAILY@0730 [facility] PRN Reason: Protocol Stop: 07/16/18 07:31 Oxybutynin Chloride (Ditropan) 5 mg PO BID [facility] Stop: 07/15/18 09:01 Last Admin: 01/13/18 13:59 Dose: Not Given Paroxetine HCl (Paxil) 40 mg PO DAILY [facility] Stop: 07/15/18 09:01 Last Admin: 01/13/18 09:31 Dose: 40 mg Pharmacy Profile Note (Patient Taking Own Medication) 1 each PO DAILY LATOSHA Stop: 07/15/18 09:01 Last Admin: 01/13/18 12:45 Dose: Not Given Vitamin D (Vitamin D) 1,000 unit PO DAILY [facility]OSHA Stop: 07/15/18 09:01 Last Admin: 01/13/18 09:31 Dose: 1,[address] 01/13/18 11:15 IMPRESSION: There is a large hiatal hernia at the GE junction. Roughly 1/2 of the stomach is intrathoracic. The patient underwent previous biopsy of a right lung nodule back in June 2016. At the site of previous biopsy, a small cavitary lesion has formed, stable from the most recent chest CT performed in October 2017. 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 No convincing evidence of an acute cardiopulmonary process. No acute intra-abdominal process is identified. Status post cholecystectomy and hysterectomy. D/ / Cisco Mata MD / Cisco Mata MD Interpreting Provider: Cisco Mata MD Abdomen CT 01/13/18 11:27 IMPRESSION: There is a large hiatal hernia at the GE junction. Roughly 1/2 of the stomach is intrathoracic. The patient underwent previous biopsy of a right lung nodule back in June 2016. At the site of previous biopsy, a small cavitary lesion has formed, stable from the most recent chest CT performed in October 2017. 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 No convincing evidence of an acute cardiopulmonary process. No acute intra-abdominal process is identified. Status post cholecystectomy and hysterectomy. D/ / Cisco Mata MD / Cisco Mata MD Interpreting Provider: Cisco Mata MD - Imaging and Cardiology Echo: report reviewed - EKG Interpretation EKG results cardiology: personally reviewed
[2018-01-13] MEDS ORDERED: Mag Hydrox/Al Hydrox/Simeth 30 ML UDC PO PRN (19:44)
[2018-01-13] MEDS: Methyl Salicylate/Menthol 28 GM TUBE TP PRN (20:45)
[2018-01-13] MEDS: Mirtazapine 15 MG TABLET PO SCH (21:36)
[2018-01-14] MEDS: Ipratropium/Albuterol Neb 3 ML IH SCH ×6 (03:19→22:38)
[2018-01-14 04:59] LABS: Basophils % 0.3 %; Eosinophils # 0.3 K/mcL (0.0-0.6); Eosinophils % 2.4 %; Hematocrit 30.9 % (35.3-44.9); Hemoglobin 9.1 g/dL (11.5-15.4); Immature Granulocytes % 0.4 % (0-4); Lymphocytes # 2.6 K/mcL (0.6-4.6); Lymphocytes % 20.8 %; Mean Corpuscular HGB Conc 29.4 g/dL (31.6-35.5); Mean Corpuscular Volume 84.9 fL (83.0-100.0); Mean Platelet Volume 8.9 fL (9.4-12.4); Monocytes # 0.6 K/mcL (0.0-1.3); Monocytes % 5.2 %; Neutrophils # 8.7 K/mcL (1.6-8.9); Platelet Count 371 K/mcL (140-400); Red Blood Count 3.64 M/mcL (3.82-4.97); Red Cell Distribution Width 26.5 % (11.5-14.5); Segmented Neutrophils % 70.9 %
[2018-01-14 05:04] LABS: Prothrombin Time 11.4 Seconds (9.4-12.1)
[2018-01-14 05:19] LABS: Alanine Aminotransferase 9 Units/L (7-52); Albumin 3.1 g/dL (3.5-5.7); Albumin/Globulin Ratio 1.3 (1.1-2.2); Alkaline Phosphatase 82 Units/L (34-104); Aspartate Amino Transferase 18 Units/L (13-39); BUN/Creatinine Ratio 22 (6-26); Bilirubin,Total 0.2 mg/dL (0.3-1.0); Blood Urea Nitrogen 15 mg/dL (8-23); Calcium 8.8 mg/dL (8.6-10.3); Carbon Dioxide 29 mEq/L (23-29); Chloride 100 mEq/L (98-107); Globulin 2.3 g/dL (2.4-3.5); Glucose 79 mg/dL (70-105); Osmolality,Calculated 278 (280-300); Potassium 4.8 mEq/L (3.5-5.1); Sodium 134 mEq/L (136-145); Total Protein 5.4 g/dL (6.4-8.9); eGFR For Non-African Americans > 60 (> 60)
[2018-01-14 05:32] LABS: Platelet Estimate Normal (Normal)
[2018-01-14 05:33] LABS: Anisocytosis 2+ (Not Present)
[2018-01-14] MEDS: Metoprolol XL (24 HR) Succ 25 MG TAB.ER.24H PO SCH (06:43)
[2018-01-14] MEDS: Loratadine 10 MG TABLET PO SCH (07:45)
[2018-01-14] MEDS: Omega-3/Dha/Epa/Fish Oil [Fish Oil 1,000 Mg Softgel] PO SCH (07:46)
[2018-01-14] MEDS: amLODIPine 5 MG TABLET PO SCH (07:46)
[2018-01-14] MEDS: Folic Acid 1 MG TABLET PO SCH (07:46)
[2018-01-14] MEDS: hydroCHLOROthiazide 25 MG TABLET PO SCH (07:46)
[2018-01-14] MEDS: Gabapentin 400 MG CAPSULE PO SCH ×2 (07:46→15:57)
[2018-01-14] MEDS: Cyanocobalamin (B-12) 1,000 MCG TABLET PO SCH (07:47)
[2018-01-14] MEDS: Cholecalciferol (D-3) 1,000 UNIT TABLET PO SCH (07:47)
[2018-01-14] MEDS: *HR* LORazepam 2 MG/ML VIAL IVP PRN (08:32)
--- NOTE | 2018-01-14 11:02 | Internal Med Progress Note ---
Hospitalist Progress Note - Encounter Date of Encounter: 01/14/18 Time of Encounter: 09:00 - Subjective Interval History: Patient denies dizziness. Mild epigastric pain. No nausea or vomiting. Waiting for surgery. Anxious for coming surgery. - Exam Vitals: Temp Pulse Resp BP Pulse Ox 99.1 F 68 14 102/67 91 01/14/18 10:34 01/14/18 10:34 01/14/18 10:34 01/14/18 10:34 01/14/18 10:34 Exam: Patient is awake alert, oriented 3. In no acute distress HEENT: AC/NT PERRL Neck: Supple Lungs: CTA b/l Heart: S1S2, RRR, PPM in place Abd: Mild epigastric tenderness w/o rebound or guarding. BS normal. Ext: No pedal edema Neuro: No focal deficit. - Assessment and Plan (1) Acute blood loss anemia Current Visit: Yes Status: Acute Assessment and Plan: H/H stable from yesterday. No signs of further bleeding. (2) COPD (chronic obstructive pulmonary disease) Current Visit: Yes Status: Acute Assessment and Plan: No wheezing. No status of exacerbation. Continue closely monitoring (3) Gastric volvulus Current Visit: Yes Status: Acute Assessment and Plan: Mild epigastric pain. Surgical consult appreciated. Plan for surgery today (4) Melena Current Visit: Yes Status: Acute Assessment and Plan: H&H and vitals are stable. Plan for surgery to resolve high to hernia. GI is on case (5) Hiatal hernia Current Visit: Yes Status: Chronic Assessment and Plan: Management as above (6) DVT prophylaxis Current Visit: No Status: Acute Assessment and Plan: EPCDs - Time Spent with Patient Total time spent is greater than 50% in coordination of care (as documented) at patient's floor/unit and/or counseling patient: 30 minutes 25 - 35 minutes Internal Medicine: Result - Labs CBC & Chem 7: 01/14/18 04:46 01/14/18 04:46 Labs: Short CBC 01/14/18 Range/Units 04:46 WBC 12.3 H (4.3-11.1) K/mcL Hgb 9.1 L (11.5-15.4) g/dL Hct 30.9 L (35.3-44.9) % Plt Count 371 (140-400) K/mcL Neutrophils # 8.7 (1.6-8.9) K/mcL BMP 01/14/18 04:46 Sodium 134 L Potassium 4.8 Chloride 100 Carbon Dioxide 29 BUN 15 Creatinine 0.67 Glucose 79 Calcium 8.8 Liver Function 01/14/18 Range/Units 04:46 Total Bilirubin 0.2 L (0.3-1.0) mg/dL AST 18 (13-39) Units/L ALT 9 (7-52) Units/L Alkaline Phosphatase 82 (34-104) Units/L Albumin 3.1 L (3.5-5.7) g/dL - ABG Interpretation ABG results: PT/INR, D-dimer PT 11.4 Seconds (9.4-12.1) 01/14/18 04:46 - Impressions Impressions Chest CT 01/13/18 11:15 IMPRESSION: There is a large hiatal hernia at the GE junction. Roughly 1/2 of the stomach is intrathoracic. The patient underwent previous biopsy of a right lung nodule back in June 2016. At the site of previous biopsy, a small cavitary lesion has formed, stable from the most recent chest CT performed in October 2017. 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 No convincing evidence of an acute cardiopulmonary process. No acute intra-abdominal process is identified. Status post cholecystectomy and hysterectomy. D/ / Cisco Mata MD / Cisco Mata MD Interpreting Provider: Cisco Mata MD Abdomen CT 01/13/18 11:27 IMPRESSION: There is a large hiatal hernia at the GE junction. Roughly 1/2 of the stomach is intrathoracic. The patient underwent previous biopsy of a right lung nodule back in June 2016. At the site of previous biopsy, a small cavitary lesion has formed, stable from the most recent chest CT performed in October 2017. 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 No convincing evidence of an acute cardiopulmonary process. No acute intra-abdominal process is identified. Status post cholecystectomy and hysterectomy. D/ / Cisco Mata MD / Cisco Mata MD Interpreting Provider: Cisco Mata MD - VTE Documentation of Mechanical Device: Graduated compression elastic hosiery (2) COPD (chronic obstructive pulmonary disease) Qualifiers: COPD type: unspecified COPD Qualified Code(s): J44.9 - Chronic obstructive pulmonary disease, unspecified
[2018-01-14] MEDS: Fluticasone Propionate Nasal 50 MCG/SPRAY BOTTLE NS SCH (11:45)
[2018-01-14] MEDS: Methyl Salicylate/Menthol 28 GM TUBE TP PRN (11:46)
[2018-01-14] MEDS ORDERED: Nicotine 21 MG PATCH.TD24 TD SCH (12:15)
--- NOTE | 2018-01-14 13:59 | Anesthesia Evaluation PreOp ---
Date of Encounter: 01/14/18 Time of Encounter: 15:38 - Past History Planned Operation: OPEN GASTRIC VOLVULUS & HIATAL HERNIA REPAIR Cardiac History: HTN, Cardiac Surgery (CABG 1999), Cardiac Stent (2003), Pacemaker/ICD (ST CJ AICD, NOT PACER DEPENDENT), Other (DVT, ELEVATED TROPONINS THIS ADMISSION, NSTEMI VS DEMAND ISCHEMIA) Pulmonary History: Smoker, COPD [place] History: Other (FIBROMYALGIA, MIGRAINES) Other Medical History: Bleeding (GI BLEED), Diabetes Type II, GERD, Other (RA) Anesthesia History: No Prior Anesthetic Complications, Past Anesthesia Alcohol Use: none Drug use: none Medications and Allergies Alprazolam [Xanax] 2 mg PO TID 02/25/16 [History] Aspirin 81 mg PO DAILY 02/25/16 [History] Cholecalciferol (D-3) [Vitamin D] 2,000 unit PO DAILY 02/25/16 [History] Clopidogrel [Plavix] 75 mg PO DAILY 02/25/16 [History] Colestipol HCl [Colestid] 2 gm PO BID 02/25/16 [History] Fluticasone Propionate Nasal [Flonase] 50 mcg NS DAILY 02/25/16 [History] Ipratropium/Albuterol Sulfate [Combivent Respimat Inhal [place]] 2 puff IH DAILY 02/25/16 [History] Oxybutynin Chloride [Ditropan Xl] 10 mg PO DAILY 02/25/16 [History] hydroCHLOROthiazide [Hydrochlorothiazide] 25 mg PO DAILY 02/25/16 [History] Atorvastatin [Lipitor] 40 mg PO HS 04/27/16 [History] Cyanocobalamin (B-12) [Vitamin B12] 1,000 mcg PO DAILY 04/27/16 [History] Folic Acid 1 mg PO DAILY 04/27/16 [History] Lactose-Reduced Food [Boost] 237 ml PO TID 04/27/16 [History] Loratadine [Claritin] 10 mg PO DAILY 04/27/16 [History] [place]-3/Dha/Epa/Fish Oil [Fish Oil 1,000 mg Softgel] 1,000 mg PO DAILY 04/27/16 [History] cloNIDine HCl [CloNIDine HCl] 0.1 mg PO DAILY PRN 04/27/16 [History] ALPRAZolam [Xanax 1 MG Tablet] 1 - 2 mg PO DAILY PRN 12/25/17 [History] Cyclobenzaprine [Flexeril] 10 mg PO TID PRN 12/25/17 [History] Etanercept [Enbrel Sureclick] 50 mg SQ QWEEK 12/25/17 [History] Gabapentin [Neurontin] 800 mg PO QID 12/25/17 [History] Lisinopril [Zestril] 5 mg PO DAILY 12/25/17 [History] Methotrexate Sodium/PF [Methotrexate 25 mg/ml Vial] 20 mg IM QWEEK 12/25/17 [ History] Mirtazapine [Remeron] 45 mg PO HS 12/25/17 [History] Pantoprazole Sodium [Protonix] 40 mg PO DAILY 12/25/17 [History] Paroxetine HCl [Paxil] 40 mg PO DAILY 12/25/17 [History] Potassium Chloride [K-Tab ER] 10 meq PO BID 12/25/17 [History] amLODIPine [Norvasc] 5 mg PO DAILY 12/25/17 [History] metFORMIN [Glucophage] 500 mg PO DAILY 12/25/17 [History] Albuterol Neb [Proventil Neb] 2.5 mg IH Q6HR PRN #0 12/29/17 [Rx] Ferrous Gluconate 324 mg PO BID 30 Days #60 tablet 12/29/17 [Rx] Metoprolol XL (24 HR) Succ [Toprol Xl] 25 mg PO DAILY 30 Days #30 tab.er.24h [Rx] 3 Allergy/AdvReac Type Severity Reaction Status Date / Time azithromycin Allergy See Verified 06/10/16 09:14 Comments clarithromycin [From Biaxin] Allergy See Verified 06/10/16 09:14 Comments fluconazole [From Diflucan] Allergy See Verified 06/10/16 09:14 Comments Hydromorphone [From Dilaudid] Allergy Hives Verified 06/10/16 09:14 Iodinated Contrast- Oral and Allergy See Verified 06/10/16 09:14 IV Dye Comments [Iodinated Contrast Media - IV Dye] morphine Allergy See Verified 06/10/16 09:14 Comments propoxyphene Allergy See Verified 06/10/16 09:14 [From Darvocet-N] Comments naproxen AdvReac See Verified 06/10/16 09:14 Comments - Meds/Allergy Pre-op Review Medications Reviewed: Yes Allergies Reviewed: Yes Beta Blockers on Current Med List: Yes If Beta Blockers taken, Date/Time (Last Dose taken): 0700 Anesthesia Results - Labs 01/14/18 04:46 01/14/18 04:46 Laboratory Last Values WBC 12.3 K/mcL (4.3-11.1) H 01/14/18 04:46 RBC 3.64 M/mcL (3.82-4.97) L 01/14/18 04:46 Hgb 9.1 g/dL (11.5-15.4) L 01/14/18 04:46 Hct 30.9 % (35.3-44.9) L 01/14/18 04:46 MCV 84.9 fL (83.0-100.0) 01/14/18 04:46 MCH 25.0 pg (28.0-33.3) L 01/14/18 04:46 MCHC 29.4 g/dL (31.6-35.5) L 01/14/18 04:46 RDW 26.5 % (11.5-14.5) H 01/14/18 04:46 Plt Count 371 K/mcL (140-400) 01/14/18 04:46 MPV 8.9 fL (9.4-12.4) L 01/14/18 04:46 Immature Gran % 0.4 % (0-4) 01/14/18 04:46 Seg Neutrophils % 70.9 % 01/14/18 04:46 Lymphocytes % 20.8 % 01/14/18 04:46 Monocytes % 5.2 % 01/14/18 04:46 Eosinophils % 2.4 % 01/14/18 04:46 Basophils % 0.3 % 01/14/18 04:46 Neutrophils # 8.7 K/mcL (1.6-8.9) 01/14/18 04:46 Lymphocytes # 2.6 K/mcL (0.6-4.6) 01/14/18 04:46 Monocytes # 0.6 K/mcL (0.0-1.3) 01/14/18 04:46 Eosinophils # 0.3 K/mcL (0.0-0.6) 01/14/18 04:46 Basophils # 0.0 K/mcL (0.0-0.2) 01/14/18 04:46 Platelet Estimate Normal (Normal) 01/14/18 04:46 Hypochromasia Present (Not Present) A 01/13/18 07:12 Anisocytosis 2+ (Not Present) A 01/14/18 04:46 Microcytosis Present (Not Present) A 01/13/18 07:12 PT 11.4 Seconds (9.4-12.1) 01/14/18 04:46 INR 1.0 01/14/18 04:46 Sodium 134 mEq/L (136-145) L 01/14/18 04:46 Potassium 4.8 mEq/L (3.5-5.1) 01/14/18 04:46 Chloride 100 mEq/L (98-107) 01/14/18 04:46 Carbon Dioxide 29 mEq/L (23-29) 01/14/18 04:46 BUN 15 mg/dL (8-23) 01/14/18 04:46 Creatinine 0.67 mg/dL (0.60-1.20) 01/14/18 04:46 Est GFR ( Amer) > 60 (> 60) 01/14/18 04:46 Est GFR (Non-Af Amer) > 60 (> 60) 01/14/18 04:46 BUN/Creatinine Ratio 22 (6-26) 01/14/18 04:46 Glucose 79 mg/dL (70-105) 01/14/18 04:46 POC Glucose 81 mg/dL (70-99) 01/14/18 10:39 Calculated Osmolality 278 (280-300) L 01/14/18 04:46 Lactic Acid 1.6 mmol/L (0.5-2.2) 01/13/18 07:12 Calcium 8.8 mg/dL (8.6-10.3) 01/14/18 04:46 Total Bilirubin 0.2 mg/dL (0.3-1.0) L 01/14/18 04:46 AST 18 Units/L (13-39) 01/14/18 04:46 ALT 9 Units/L (7-52) 01/14/18 04:46 Alkaline Phosphatase 82 Units/L (34-104) 01/14/18 04:46 Serum Total Protein 5.4 g/dL (6.4-8.9) L 01/14/18 04:46 Albumin 3.1 g/dL (3.5-5.7) L 01/14/18 04:46 Globulin 2.3 g/dL (2.4-3.5) L 01/14/18 04:46 Albumin/Globulin Ratio 1.3 (1.1-2.2) 01/14/18 04:46 Blood Type O POSITIVE 01/13/18 07:12 Antibody Screen NEGATIVE 01/13/18 07:12 - Imaging Additional studies: TTE 12/2017: LVEF 65%. Normal LV chamber size, wall thickness and function. Indeterminate diastolic function. Atypical septal motion consistent with post-operative status. Normal right ventricular structure and function. Mild pulmonary hypertension. No significant valvular dysfunction. Anesthesia Exam Vital Signs/O2 Sat/Glucose, Most Recent Temp Pulse Resp BP Pulse Ox 99.1 F 68 14 102/67 91 01/14/18 10:34 01/14/18 10:34 01/14/18 10:34 01/14/18 10:34 01/14/18 10:34 Blood Glucose* 81 Weight 75.6 kg HEIGHT 1.57 m BMI 31 NPO (# of Hours): 8 - HEENT Pupil (Motor): Pupils equal Mallampati: III Teeth: Edentulous Oral Opening: Greater than 3 - Cardiac Rhythm: Regular - Pulmonary Breath Sounds: bilateral Clear Respiratory Effort: Symmetrical - Additional Findings Active Medications Acetaminophen (Tylenol) 650 mg PO Q6HR PRN PRN Reason: Mild Pain/Fever Stop: 07/15/18 05:07 Hydrocodone Bitart/Acetaminophen ([place] 5-325 Mg) 1 tab PO Q6H PRN PRN Reason: Moderate Pain Stop: 07/15/18 11:01 Last Admin: 01/13/18 18:56 Dose: 1 tab Al Hydrox/Mg Hydrox/Simethicone (Maalox) 15 ml PO Q6HR PRN; Protocol PRN Reason: Indigestion Stop: 07/15/18 19:45 Albuterol Sulfate (Proventil Neb) 2.5 mg IH Q6HR PRN; Protocol PRN Reason: Shortness Of Breath/Wheezing Stop: 07/15/18 06:24 Albuterol/Ipratropium (Duoneb) 3 ml IH BID LATOSHA Stop: 07/15/18 10:46 Last Admin: 01/14/18 09:57 Dose: Not Given Albuterol/Ipratropium (Duoneb) 3 ml IH [id number] [facility] Stop: 07/15/18 16:01 Last Admin: 01/14/18 09:54 Dose: 3 ml Alprazolam (Xanax) 1 mg PO BID PRN; Protocol PRN Reason: Anxiety Stop: 07/15/18 13:04 Last Admin: 01/13/18 21:36 Dose: 1 mg Amlodipine Besylate (Norvasc) 5 mg PO DAILY LATOSHA PRN Reason: Protocol Stop: 07/15/18 09:01 Last Admin: 01/14/18 07:46 Dose: Not Given Clonidine HCl (Clonidine Hcl) 0.1 mg PO DAILY PRN PRN Reason: Hypertension Stop: 07/15/18 06:24 Cyanocobalamin (Vitamin B12) 1,000 mcg PO DAILY [facility] Stop: 07/15/18 09:01 Last Admin: 01/14/18 07:47 Dose: Not Given Cyclobenzaprine HCl (Flexeril) 10 mg PO TID PRN PRN Reason: Muscle Pain Stop: 07/15/18 06:24 Last Admin: 01/13/18 19:06 Dose: 10 mg Diphenhydramine HCl (Benadryl) 50 mg IVP Q8HR PRN PRN Reason: Itching Stop: 07/15/18 11:30 Ferrous Sulfate (Ferrous Sulfate) 325 mg PO BIDWM [facility] Stop: 07/15/18 17:01 Last Admin: 01/14/18 07:45 Dose: Not Given Fluticasone Propionate (Flonase) 50 mcg NS DAILY [facility] PRN Reason: Protocol Stop: 07/15/18 09:01 Last Admin: 01/14/18 11:45 Dose: 50 mcg Folic Acid (Folic Acid) 1 mg PO DAILY [facility] Stop: 07/15/18 09:01 Last Admin: 01/14/18 07:46 Dose: Not Given Gabapentin (Neurontin) 800 mg PO QID [facility] Stop: 07/15/18 09:01 Last Admin: 01/14/18 07:46 Dose: Not Given Hydrochlorothiazide (Hydrochlorothiazide) 25 mg PO DAILY [facility] PRN Reason: Protocol Stop: 07/15/18 09:01 Last Admin: 01/14/18 07:46 Dose: Not Given Lisinopril (Zestril) 5 mg PO DAILY LATOSHA PRN Reason: Protocol Stop: 07/15/18 09:01 Last Admin: 01/14/18 07:47 Dose: Not Given Loratadine (Claritin) 10 mg PO DAILY LATOSHA PRN Reason: Protocol Stop: 07/15/18 09:01 Last Admin: 01/14/18 07:45 Dose: Not Given Lorazepam (Ativan) 1 mg IVP Q6HR PRN PRN Reason: Anxiety Stop: 07/15/18 15:14 Last Admin: 01/14/18 08:32 Dose: 1 mg Menthol/Methyl Salicylate (Bengay) 1 appl TP BID PRN PRN Reason: Pain Stop: 07/15/18 08:43 Last Admin: 01/14/18 11:46 Dose: 1 appl Metoprolol Succinate (Toprol Xl) 25 mg PO DAILY LATOSHA Stop: 07/15/18 09:01 Last Admin: 01/14/18 06:43 Dose: 25 mg Mirtazapine (Remeron) 45 mg PO HS LATOSHA Stop: 07/15/18 21:01 Last Admin: 01/13/18 21:36 Dose: 45 mg Naloxone HCl (Narcan) 0.4 mg IVP Q2MIN PRN PRN Reason: SEE COMMENTS Stop: 07/15/18 05:07 Nicotine (Nicoderm) 21 mg TD DAILY LATOSHA PRN Reason: Protocol Stop: 07/16/18 12:16 Omeprazole (Prilosec) 20 mg PO DAILY@0730 LATOSHA PRN Reason: Protocol Stop: 07/16/18 07:31 Last Admin: 01/14/18 07:45 Dose: Not Given Oxybutynin Chloride (Ditropan) 5 mg PO BID LATOSHA Stop: 07/15/18 09:01 Last Admin: 01/14/18 07:46 Dose: Not Given Paroxetine HCl (Paxil) 40 mg PO DAILY LATOSHA Stop: 07/15/18 09:01 Last Admin: 01/14/18 07:46 Dose: Not Given Pharmacy Profile Note (Patient Taking Own Medication) 1 each PO DAILY LATOSHA Stop: 07/15/18 09:01 Last Admin: 01/14/18 07:46 Dose: Not Given Vitamin D (Vitamin D) 1,000 unit PO DAILY LATOSHA Stop: 07/15/18 09:01 Last Admin: 01/14/18 07:47 Dose: Not Given Anesthesia Assess/Plan ASA Score: 5 Modified [place] Scale for Level of Consciousness: Anixous, agitated or restless Anesthetic Plan: General Monitoring Plan: Standard Monitors Recovery Plan: PACU Anes Supervising Prov Stmt: Patient informed of high cardiac risk, possible post-operative mechanical ventilation, and possible need for blood transfusion and invasive monitoring. Patient agrees to proceed to proceed.
[2018-01-14] MEDS ORDERED: Ringers Solution, Lactated 1,000 ML ONE (15:32)
[2018-01-14] MEDS ORDERED: Lidocaine -MPF 2% 2 ML VIAL ONE (15:54)
[2018-01-14] MEDS ORDERED: Heparin 1,000 UNITS/500 mL 500 ML ONE (15:54)
[2018-01-14] MEDS ORDERED: *HR* Succinylcholine 200 MG/10 ML VIAL IVP ONE (15:54)
[2018-01-14] MEDS ORDERED: Ondansetron 4 MG/2 ML VIAL ONE (15:54)
[2018-01-14] MEDS ORDERED: CefOXitin 1,000 MG VIAL ONE (15:54)
[2018-01-14] MEDS ORDERED: Dexamethasone 4 MG/ML VIAL ONE (15:54)
[2018-01-14] MEDS ORDERED: *HR* Rocuronium Bromide 50 MG/5 ML VIAL ONE (15:54)
[2018-01-14] MEDS ORDERED: *HR* FentaNYL (PF) 100 MCG/2 ML VIAL ONE ×2 (15:55→16:52)
[2018-01-14] MEDS ORDERED: *HR* Propofol 200 MG/20 ML VIAL IVP ONE (15:55)
[2018-01-14] MEDS ORDERED: *HR* Midazolam HCl 2 MG/2 ML VIAL ONE (15:55)
[2018-01-14] MEDS ORDERED: *HR* PHENYLEPHRINE 1,000 MCG/10 ML SYRINGE IVP ONE ×2 (16:17→18:01)
--- NOTE | 2018-01-14 18:07 | Anesthesia Procedures ---
Date of Encounter: 01/14/18 Time of Encounter: 16:04 Procedures: Anesthesia - Arterial Line Consent obtained: written consent Time out performed: Yes Size (Gauge): 20 Length (inches): 1 3/4 Technique Used: sterile prep Post-Procedure: dry sterile dressing placed Patient tolerated procedure: no complications Site: Radial L Comments: left radial 20 ga arrow dart, after induction of anesthesia, single attempt, transduced.
[2018-01-14] MEDS ORDERED: D5% in 0.45% NACL 1,000 ML IVC SCH (18:30)
--- NOTE | 2018-01-14 18:35 | Operative Note ---
Date of procedure: 01/14/18 Pre-op diagnosis: Paraesophageal hernia and gastric hemorrhage with gastric volvulus Post-op diagnosis: same Procedure: #1 reduction of gastric. #2 repair of paraesophageal hernia. #3 Mireya fundoplication. #4 explant (removal) mesh Anesthesia: KALI Surgeon: Phillip Lemus Was there an video production assistant present: Yes Music Grapher: Beth Perales Estimated blood loss (cc): 350 Specimen: Mesh Condition: stable Disposition: PACU Procedure in Detail: After informed consent the patient was taken to the major operative suite placed in supine position and given adequate general endotracheal anesthesia. The abdomen is prepped and draped in sterile fashion utilizing ChloraPrep standard draping techniques. Timeout taken patient is identified. Made a vertical midline incision from the xiphoid to the umbilicus. The midline was opened. I encountered a mesh in the subxiphoid position. This was densely scarred to the liver and precluded appropriate liver retraction . I made a decision to remove the mesh. Mesh was grasped with Allis clamps and I completely removed the mesh from liver and the fascia. Once this was done I was able to lyse the adhesions to the anterior abdominal wall and then begin to mobilize the triangular ligament of the liver. During the mobilization there was dense scarring between the liver and the diaphragm, because of this I damage the transverse for neck vein at its junction with the liver. This resulted in blood loss. I lost 250 mL of dark venous blood while closing the venotomy. 2 [id number] 3-0 Prolene stitches were used. There is no further bleeding from this area the rest of the case and the stitches were secured. The venotomy occurred due to excessive scarring. The stomach was encountered and reduced out of the chest. There were dense hernia sac adhesions circumferentially. I started with the lesser sac. I divided the hernia sac and the lesser omentum. As I approach the esophagus the nasogastric tube was changed out for the lighted bougie. This was visible throughout the procedure and assisted in identifying the esophagus area this allowed me to divide all of the hernia sac anteriorly and on the right side all the way down to the right love of the diaphragm. Once this was done I turned my attention to the left side. Again there were multiple layers of peritoneum. The hernia sac was divided first. Then I divided the short gastrics from the cardia to the spleen area once this was done I encountered another peritoneal hernia sac overlying the left crura of the diaphragm this was also divided with positive identification of the esophagus at all times using the lighted bougie. I was not able to make a circumferential dissection around the gastroesophageal junction and a [place] retractor was placed. Further dissection posterior to the esophagus and helped me identify the right and left crura of the diaphragm. There was a large hiatal hernia. This was closed with 4 stitches of 0 Ethibond with pledgets. This given excellent technical result in just the right tension. The cardia was then brought behind the gastroesophageal junction. I positively identify the posterior vagus trunk and with this between the wrap and the esophagus. There was some persistent hernia sac at this level this was divided making the tension just right. I then created a Mireya fundoplication using 3 stitches of 2-0 Ethibond with pledgets this was wrapped around a 56-[place] bougie. 2 shoulder stitches were placed between the wrap and the diaphragm. Total blood loss was 350 mL most of which was at the injury to the transverse phrenic vein encased in scar tissue at the intersection with the liver. I carefully investigated this area and there was no bleeding. All packs and retractors were removed. Midline was closed with looped 0 PDS the skin with interrupted Vicryl and skin clips
[2018-01-14] MEDS ORDERED: Neostigmine Methylsulfate 3 MG/3 ML SYRINGE ONE (18:38)
[2018-01-14] MEDS ORDERED: *HR* Metoprolol 5 MG/5 ML VIAL IVP ONE (18:48)
[2018-01-14] MEDS: *HR* FentaNYL (PF) 100 MCG/2 ML VIAL IVP PRN (19:04)
--- NOTE | 2018-01-14 19:34 | Anesthesia Evaluation Post Op ---
Date of Encounter: 01/14/18 Time of Encounter: 19:34 - Discharge PostOp Status: Transfer Patient to floor (Patient's vital signs have been reviewed. Patient is stable postoperatively and has adequately recovered from anesthesia. Patient is determined to have stable airway patency and respiratory function including respiratory rate and oxygen saturation. Patient has a stable heart rate, blood pressure and adequate hydration. Patients mental status is acceptable. Patients temperature is appropriate. Pain and nausea are adequately controlled.)
[2018-01-15] MEDS: *HR* Heparin 5,000 UNIT/ML VIAL SQ SCH ×3 (00:39→18:01)
[2018-01-15] MEDS: Gabapentin 400 MG CAPSULE PO SCH ×6 (00:39→20:32)
[2018-01-15] MEDS: Mirtazapine 15 MG TABLET PO SCH ×2 (00:40→20:33)
[2018-01-15] MEDS: *HR* FentaNYL (PF) 100 MCG/2 ML VIAL IVP PRN (03:53)
[2018-01-15] MEDS: Ipratropium/Albuterol Neb 3 ML IH SCH ×4 (04:08→20:40)
[2018-01-15] MEDS: *HR* LORazepam 2 MG/ML VIAL IVP PRN (05:14)
[2018-01-15 05:33] LABS: Basophils % 0.1 %; Hematocrit 29.5 % (35.3-44.9); Hemoglobin 8.7 g/dL (11.5-15.4); Immature Granulocytes % 0.4 % (0-4); Lymphocytes # 0.5 K/mcL (0.6-4.6); Lymphocytes % 2.6 %; Mean Corpuscular HGB Conc 29.5 g/dL (31.6-35.5); Mean Corpuscular Hemoglobin 24.9 pg (28.0-33.3); Mean Corpuscular Volume 84.3 fL (83.0-100.0); Mean Platelet Volume 9.2 fL (9.4-12.4); Monocytes # 0.4 K/mcL (0.0-1.3); Monocytes % 2.3 %; Platelet Count 384 K/mcL (140-400); Red Cell Distribution Width 26.5 % (11.5-14.5); Segmented Neutrophils % 94.6 %
[2018-01-15 05:35] LABS: Neutrophils # 16.7 K/mcL (1.6-8.9)
[2018-01-15 05:50] LABS: Alanine Aminotransferase 59 Units/L (7-52); Albumin 2.9 g/dL (3.5-5.7); Albumin/Globulin Ratio 1.3 (1.1-2.2); Alkaline Phosphatase 92 Units/L (34-104); Aspartate Amino Transferase 80 Units/L (13-39); BUN/Creatinine Ratio 18 (6-26); Bilirubin,Total 0.3 mg/dL (0.3-1.0); Blood Urea Nitrogen 12 mg/dL (8-23); Calcium 8.5 mg/dL (8.6-10.3); Carbon Dioxide 28 mEq/L (23-29); Chloride 98 mEq/L (98-107); Globulin 2.3 g/dL (2.4-3.5); Glucose 168 mg/dL (70-105); Osmolality,Calculated 278 (280-300); Potassium 4.6 mEq/L (3.5-5.1); Sodium 132 mEq/L (136-145); Total Protein 5.2 g/dL (6.4-8.9); eGFR For Non-African Americans > 60 (> 60)
[2018-01-15 05:53] LABS: Anisocytosis 2+ (Not Present)
[2018-01-15 05:54] LABS: Hypochromasia Present (Not Present); Microcytosis Present (Not Present); Platelet Estimate Normal (Normal)
[2018-01-15] MEDS ORDERED: Methyl Salicylate/Menthol 28 GM TUBE TP PRN (07:11)
[2018-01-15] MEDS ORDERED: cloNIDine HCl 0.1 MG TABLET PO PRN (07:11)
[2018-01-15] MEDS ORDERED: *HR* LORazepam 2 MG/ML VIAL IVP PRN (07:11)
[2018-01-15] MEDS ORDERED: Naloxone 0.4 MG/ML INJ IVP PRN (07:11)
[2018-01-15] MEDS ORDERED: Albuterol 2.5 MG/3 ML NEBULIZER IH PRN (07:11)
[2018-01-15] MEDS ORDERED: Mag Hydrox/Al Hydrox/Simeth 30 ML UDC PO PRN (07:11)
[2018-01-15] MEDS ORDERED: *HR* FentaNYL (PF) 100 MCG/2 ML VIAL IVP PRN (07:11)
[2018-01-15] MEDS ORDERED: Ipratropium/Albuterol Neb 3 ML IH SCH (09:00)
[2018-01-15] MEDS: Loratadine 10 MG TABLET PO SCH (09:29)
[2018-01-15] MEDS: Cyanocobalamin (B-12) 1,000 MCG TABLET PO SCH (09:29)
[2018-01-15] MEDS: Folic Acid 1 MG TABLET PO SCH (09:29)
[2018-01-15] MEDS: Cholecalciferol (D-3) 1,000 UNIT TABLET PO SCH (09:29)
[2018-01-15] MEDS: Metoprolol XL (24 HR) Succ 25 MG TAB.ER.24H PO SCH (09:29)
[2018-01-15] MEDS: hydroCHLOROthiazide 25 MG TABLET PO SCH (09:30)
[2018-01-15] MEDS: Fluticasone Propionate Nasal 50 MCG/SPRAY BOTTLE NS SCH (09:31)
[2018-01-15] MEDS: Nicotine 21 MG PATCH.TD24 TD SCH (09:31)
[2018-01-15] MEDS: *HR* HYDROcodone/Acet 5/325 mg TABLET PO PRN (09:40)
[2018-01-15] MEDS: D5% in 0.45% NACL 1,000 ML IVC SCH ×2 (09:41→10:30)
[2018-01-15] MEDS: amLODIPine 5 MG TABLET PO SCH (09:41)
[2018-01-15] MEDS: OMEGA 3 FISH OIL PO SCH (09:41)
--- NOTE | 2018-01-15 10:32 | General Surgery Progress Note ---
<Chas Hernandez R - Last Filed: 01/15/18 10:50> Date of Encounter: 01/15/18 Time of Encounter: 08:20 - Assessment and Plan (1) Gastric volvulus Current Visit: Yes Status: Acute POD #1 S/P reduction of gastric, paraesophageal hernia, mireya fundoplication, mesh removal Patient is doing well postoperatively. Pain controlled. Vital signs are stable, afebrile. Plan: Clear liquid diet with no carbonation Comfort care and pain management IV fluids EPCD's Incentive spirometry PPI prophylaxis Dressing changes (2) Smoking history Current Visit: Yes Status: Chronic Continue nicotine patch daily (3) COPD (chronic obstructive pulmonary disease) Current Visit: Yes Status: Chronic Continue duonebs incentive spirometry Qualifiers: COPD type: unspecified COPD Qualified Code(s): J44.9 - Chronic obstructive pulmonary disease, unspecified (5) DVT prophylaxis Current Visit: No Status: Acute EPCD's Heparin Subjective Patient reports: no new complaints, tolerating liquids well, no flatus, no bowel movement, afebrile Narrative: patient reporting some abdominal discomfort since surgery. Has been controlled with pain medication. Denies nausea or vomiting. Has not passed flatus or bowel movement. Objective Vital Signs - Last 8 Hours Temp Pulse Resp BP Pulse Ox 01/15/18 07:03 97.5 F L 83 15 112/65 95 01/15/18 04:08 16 95 01/15/18 03:54 98.4 F 74 18 125/69 94 Intake and Output 01/14/18 01/15/18 01/15/18 23:59 07:59 15:59 Intake Total 0 / 0 0 / 0 240 / 240 Output Total 550 / 550 900 / 900 130 / 130 Balance -550 / -550 -900 / -900 110 / 110 Intake: Oral 0 / 0 0 / 0 240 / 240 Output: Urine 400 / 400 130 / 130 Estimated Blood Loss 350 / 350 Urine Amount (Catheter) 200 / 200 Catheter 500 / 500 Other: Meal NPO Dinner Breakfast Percent of Meal Consumed 0% Blood Glucose* 193 - General physical appearance well nourished, no distress, other (mild pain) - Eyes PERRL, normal ocular movement - ENT normal mucosa, atraumatic, normocephalic - Neck Neck exam: trachea midline - Respiratory normal respiratory effort, clear to auscultation - Cardiovascular Cardiovascular exam: Present: RRR - Abdomen Abdomen: Present: soft, tender (expected post surgical tenderness). Absent: bowel sounds present - Incision Incision: Present: clean and dry, intact - Integumentary no rash - Neurologic CN 2-12 grossly intact - Psychiatric oriented to time, oriented to person, oriented to place, speech is normal - Labs 01/15/18 05:09 01/15/18 05:09 Diabetes panel 01/15/18 Range/Units 05:09 Sodium 132 L (136-145) mEq/L Potassium 4.6 (3.5-5.1) mEq/L Chloride 98 (98-107) mEq/L Carbon Dioxide 28 (23-29) mEq/L BUN 12 (8-23) mg/dL Creatinine 0.65 (0.60-1.20) mg/dL Glucose 168 H (70-105) mg/dL Calcium 8.5 L (8.6-10.3) mg/dL AST 80 H (13-39) Units/L ALT 59 H (7-52) Units/L Alkaline Phosphatase 92 (34-104) Units/L Albumin 2.9 L (3.5-5.7) g/dL Calcium panel 01/15/18 Range/Units 05:09 Calcium 8.5 L (8.6-10.3) mg/dL Albumin 2.9 L (3.5-5.7) g/dL Pituitary panel 01/15/18 Range/Units 05:09 Sodium 132 L (136-145) mEq/L Potassium 4.6 (3.5-5.1) mEq/L Chloride 98 (98-107) mEq/L Carbon Dioxide 28 (23-29) mEq/L BUN 12 (8-23) mg/dL Creatinine 0.65 (0.60-1.20) mg/dL Glucose 168 H (70-105) mg/dL Calcium 8.5 L (8.6-10.3) mg/dL Adrenal panel 01/15/18 Range/Units 05:09 Sodium 132 L (136-145) mEq/L Potassium 4.6 (3.5-5.1) mEq/L Chloride 98 (98-107) mEq/L Carbon Dioxide 28 (23-29) mEq/L BUN 12 (8-23) mg/dL Creatinine 0.65 (0.60-1.20) mg/dL Glucose 168 H (70-105) mg/dL Calcium 8.5 L (8.6-10.3) mg/dL Total Bilirubin 0.3 (0.3-1.0) mg/dL AST 80 H (13-39) Units/L ALT 59 H (7-52) Units/L Alkaline Phosphatase 92 (34-104) Units/L Albumin 2.9 L (3.5-5.7) g/dL - VTE Documentation of Mechanical Device: Graduated compression elastic hosiery Consult Discharge Plan - Plan Instructions: Adult Open Mireya Fundoplication (DC) Additional Instructions: General Instructions After Mireya Surgery 1. No pushing, pulling, or lifting greater than 15 lbs for two weeks. 2. You may shower beginning today, but no tub baths, soaking, or swimming for 2 weeks. 3. You may resume driving when you are off narcotics and are safe to react in a car. 4. Take narcotics as directed. Do not take more narcotics then directed and do not share your narcotics with any other person. Do not drink alcohol while on narcotics. 5. Take stool softeners (Colace) or a water based laxative (Miramax) while taking narcotics. You may hold for loose stools. 6. Report any fevers greater than 100.5F, increase abdominal discomfort, drainage that looks like pus, increased redness or pain at the surgical site, or any vomiting. 7. Report any pain in the calves, shortness of breath, or rapid heartbeat. 8. Continue to take your heartburn medications until directed to stop. Do not stop them abruptly as this can cause symptoms of reflux. 9. Do not drink alcohol or carbonated beverages. 10. Do not deviate from the recommended Mireya diet below. Doing so can affect your outcomes. [place] [facility] Diet After Mireya Fundoplication Surgery This diet information is for patients who have recently had Mireya Fundoplication Surgery to correct reflux disease or to repair various types of hernias, such as hiatal hernia and intrathoracic stomach. This diet may also be used for other gastrointestinal surgeries, such as Heller myotomy and repair of achalasia. The diet will help control diarrhea, excess gas and swallowing problems, which may occur after this type of surgery. Important Steps to Keep Your Stomach From Stretching Eat small, frequent meals (six to eight per day). This will help you consume the majority of the nutrients you need without causing your stomach to feel full or distended. Drinking large amounts of fluids with meals can stretch your stomach. You may drink fluids between meals as often as you like, but limit fluids to 1/2 cup (4 fluid ounces) with meals and one cup (8 fluid ounces) with snacks. Sit upright while eating, and stay upright for 30 minutes after each meal. [place] can help food move through your digestive tract. Do not lie down after eating. Sit upright for 2 hours after your last meal or snack of the day. Eat very slowly. Take your time when eating. Take small bites and chew your food well to sheeter helper in swallowing and digestion. Avoid crusty breads and sticky, gummy foods, such as bananas, fresh doughy breads, rolls and doughnuts. These types of foods become sticky and difficult to swallow. Toasted breads tend to be better tolerated. Lastly, if you eat sweets, consume them at the end of your meal to avoid a group of symptoms referred to as dumping syndrome. This describes the rapid emptying of foods from the stomach to the small intestine. Sweetened beverages, candy and desserts move more rapidly and dump quickly into the intestines. This can cause symptoms of nausea, weakness, cold sweats, cramps, diarrhea and dizzy spells. Important Steps to Avoid Gas Do not drink through a straw, chew gum, or chew tobacco. These actions cause you to swallow air, which will produce excess gas in your stomach. Chew with your mouth closed and chew your food thoroughly. Avoid foods that cause stomach gas and distention. The foods include corn, dried beans, peas, lentils, onions, broccoli, cauliflower, and any food item from the cabbage family. Do not drink carbonated drinks, alcohol, citrus, or tomato products. What Will I Be Able To Eat and Drink After Surgery After Mireya Fundoplication Surgery, your diet will be advanced slowly by your surgeon. Generally, you will be on a thin/clear liquid diet for the first 10 days. Then you will advance to the full liquid diet for 4 days and eventually to a Mireya soft diet for 7 days. After any surgery, protein consumption is important for healing. To get enough protein, drink 3-4 [place] Instant Breakfast, Ensure, or equivalent daily. Reminder: Carbonated beverages (such as sodas, energy drinks, flavored carbonated water), and alcohol are not permitted for the 1st 6 to 8 weeks after surgery. After this time you may attempt to reintroduce them in small amounts. Please note: Dairy products such as milk, ice cream, and pudding may cause diarrhea in some people after surgery. You may need to avoid milk products. If so you may substitute them with lactose free beverages, such as soy, rice, lactate, or almond milk. Please be aware that each patient's tolerance to food is different. Your doctor will advance your diet depending on how well you progress after surgery. Thin Liquid Diet The first diet after Mireya Fundoplication Surgery is the thin liquids diet. Follow this diet for postoperative days 1-10 01/14- 01/23/2018. Thin liquids include: Apple, Cranberry, or Grape Juice (no citrus juice) Chicken Broth Beef Broth Flavored Gelatin (Jell-O) Decaffeinated Tea or Coffee Popsicles or [place] Ice Caffeinated Beverages Will Be Permitted Based upon Tolerance and at a later date Dairy if tolerated Thin Milkshakes (strawberry or vanilla flavored- No chocolate) Drink 3-4 [place] instant breakfast, Ensure, or equivalent daily. May be mixed with dairy for thin milkshakes Full Liquid Diet Follow this diet for postoperative days 11-14 01/24 - 01/27/2018. Full liquid diet includes anything in the thin liquid diet plus: Milk: Dairy, Soy, Rice, and [place] (No Chocolate) Cream of Wheat, Cream of Rice, Grits Strained Creamed Soups (No Tomato or Broccoli) Vanilla and [place] Flavored Ice Cream Sherbet Vanilla and Butterscotch Pudding (No Chocolate or Coconut) Continue 3-4 [place] Instant Breakfast, Ensure, or an Equivalent Daily. May be mixed with Dairy for Thin Milkshakes. Mireya Soft Diet Follow this diet for postoperative days 15-20 01/28 - 02/02/2018. (If you are consuming enough protein, you may stop the protein supplements). Please note: You will need extra fluids throughout the day to meet your fluid needs. Referrals: Batsheva Gomez [employer] COUN[employer] [Advanced Practice Nurse] - 01/26/18 9:30 am Wanda Veras CNP [Partnered Physician] - 02/03/18 12:30 pm Franci Davenport CNP [Advanced Practice Nurse] - 01/30/18 1:00 pm <Phillip Lemus - Last Filed: 01/17/18 08:29> Date of Encounter: 01/15/18 - Assessment and Plan (1) Melena Current Visit: Yes Status: Acute (2) Hiatal hernia Current Visit: Yes Status: Chronic (3) GERD (gastroesophageal reflux disease) Current Visit: Yes Status: Chronic Qualifiers: Esophagitis presence: without esophagitis Qualified Code(s): K21.9 - Gastro -esophageal reflux disease without esophagitis (4) Gastric volvulus Current Visit: Yes Status: Acute (5) Acute blood loss anemia Current Visit: Yes Status: Acute (6) COPD (chronic obstructive pulmonary disease) Current Visit: Yes Status: Chronic Qualifiers: COPD type: unspecified COPD Qualified Code(s): J44.9 - Chronic obstructive pulmonary disease, unspecified Objective Vital Signs - Last 8 Hours Temp Pulse Resp BP Pulse Ox 01/17/18 07:55 98.8 F 83 14 112/72 93 01/17/18 04:35 98.0 F 76 15 84/58 98 01/17/18 03:57 16 94 Intake and Output 01/16/18 01/17/18 01/17/18 23:59 07:59 15:59 Intake Total 900 / 900 867 / 867 Output Total 0 / 0 1100 / 1100 Balance 900 / 900 -233 / -233 Intake: IV Fluids 900 / 900 867 / 867 0.9 % Sodium Chloride 1,000 ML 300 / 300 700 / 700 @ 50 mls/hr IVC .Q20H [facility]OS[facility] Rx#: [id number] 0.9 % Sodium Chloride 500 ML @ 500 / 500 999 mls/hr IVC .Q31M ONE Rx#: [id number] Ofirmev 1,000 mg/100 ml 1,000 100 / 100 167 / 167 mg In 100 ml @ 400 mls/hr IVPB Q6HR [facility]OS[facility] Rx#:[id number] Oral 0 / 0 0 / 0 Output: Urine 0 / 0 Catheter 1100 / 1100 - Labs 01/17/18 06:45 01/17/18 06:45 Diabetes panel 01/17/18 Range/Units 06:45 Sodium 130 L (136-145) mEq/L Potassium 4.0 (3.5-5.1) mEq/L Chloride 99 (98-107) mEq/L Carbon Dioxide 24 (23-29) mEq/L BUN 7 L (8-23) mg/dL Creatinine 0.55 L (0.60-1.20) mg/dL Glucose 85 (70-105) mg/dL Calcium 8.0 L (8.6-10.3) mg/dL Calcium panel 01/17/18 Range/Units 06:45 Calcium 8.0 L (8.6-10.3) mg/dL Pituitary panel 01/17/18 Range/Units 06:45 Sodium 130 L (136-145) mEq/L Potassium 4.0 (3.5-5.1) mEq/L Chloride 99 (98-107) mEq/L Carbon Dioxide 24 (23-29) mEq/L BUN 7 L (8-23) mg/dL Creatinine 0.55 L (0.60-1.20) mg/dL Glucose 85 (70-105) mg/dL Calcium 8.0 L (8.6-10.3) mg/dL Adrenal panel 01/17/18 Range/Units 06:45 Sodium 130 L (136-145) mEq/L Potassium 4.0 (3.5-5.1) mEq/L Chloride 99 (98-107) mEq/L Carbon Dioxide 24 (23-29) mEq/L BUN 7 L (8-23) mg/dL Creatinine 0.55 L (0.60-1.20) mg/dL Glucose 85 (70-105) mg/dL Calcium 8.0 L (8.6-10.3) mg/dL - Attending Attestation I examined this patient and my medical decision-making was reviewed with the Resident Physician. I agree with the documented findings, disposition and treatment plan as described except to the extent set forth below. The patient is seen in evaluation with the resident and the clinical nurse practitioner on morning rounds. She is doing quite well after reduction of paraesophageal hernia with suspected gastric volvulus. She is tolerating clear liquids. Continue supportive care and pain management Phillip Lemus MD FACS
--- NOTE | 2018-01-15 11:44 | Internal Med Progress Note ---
Hospitalist Progress Note - Encounter Date of Encounter: 01/15/18 Time of Encounter: 09:00 - Subjective Interval History: POD#1, c/o abd pain due to surgery. Not passing gas yet. Cont closely monitor and supportive management. Surgical is on case for follow up, recommendation will be followed. - Exam Vitals: Temp Pulse Resp BP Pulse Ox 99.3 F 60 15 132/80 93 01/15/18 10:58 01/15/18 10:58 01/15/18 10:58 01/15/18 10:58 01/15/18 10:58 Exam: Patient is awake alert, oriented 3. In mild pain HEENT: AC/NT PERRL Neck: Supple Lungs: CTA b/l Heart: S1S2, RRR, PPM in place Abd: Abd incision well dressed. mild to moderate tenderness Ext: No pedal edema Neuro: No focal deficit. - Assessment and Plan (1) Acute blood loss anemia Current Visit: Yes Status: Acute Assessment and Plan: No signs of further bleeding. s/p #1 reduction of gastric. #2 repair of paraesophageal hernia. #3 Mireya fundoplication. #4 explant (removal) mesh. Cont closely monitor H/H and vitals. (2) COPD (chronic obstructive pulmonary disease) Current Visit: Yes Status: Chronic Assessment and Plan: No wheezing. No status of exacerbation. Continue closely monitoring (3) Gastric volvulus Current Visit: Yes Status: Acute Assessment and Plan: S/P surgery. (4) Melena Current Visit: Yes Status: Acute Assessment and Plan: H&H and vitals are stable. Cont closely f/u (5) Hiatal hernia Current Visit: Yes Status: Chronic Assessment and Plan: S/P surgery (6) DVT prophylaxis Current Visit: No Status: Acute Assessment and Plan: EPCDs - Time Spent with Patient Total time spent is greater than 50% in coordination of care (as documented) at patient's floor/unit and/or counseling patient: 30 min 25 - 35 minutes Internal Medicine: Result - Labs CBC & Chem 7: 01/15/18 05:09 01/15/18 05:09 Labs: Short CBC 01/15/18 Range/Units 05:09 WBC 17.7 H (4.3-11.1) K/mcL Hgb 8.7 L (11.5-15.4) g/dL Hct 29.5 L (35.3-44.9) % Plt Count 384 (140-400) K/mcL Neutrophils # 16.7 H (1.6-8.9) K/mcL BMP 01/15/18 05:09 Sodium 132 L Potassium 4.6 Chloride 98 Carbon Dioxide 28 BUN 12 Creatinine 0.65 Glucose 168 H Calcium 8.5 L Liver Function 01/15/18 Range/Units 05:09 Total Bilirubin 0.3 (0.3-1.0) mg/dL AST 80 H (13-39) Units/L ALT 59 H (7-52) Units/L Alkaline Phosphatase 92 (34-104) Units/L Albumin 2.9 L (3.5-5.7) g/dL - ABG Interpretation ABG results: PT/INR, D-dimer PT 11.4 Seconds (9.4-12.1) 01/14/18 04:46 - VTE Documentation of Mechanical Device: Graduated compression elastic hosiery Consult Discharge Plan - Plan Referrals: Batsheva Gomez CNP [Advanced Practice Nurse] - 01/26/18 9:30 am Wanda Veras CNP [Partnered Physician] - 02/03/18 12:30 pm Franci Davenport CNP [Advanced Practice Nurse] - 01/30/18 1:00 pm (2) COPD (chronic obstructive pulmonary disease) Qualifiers: COPD type: unspecified COPD Qualified Code(s): J44.9 - Chronic obstructive pulmonary disease, unspecified
[2018-01-15] MEDS: Acetaminophen 325 MG TABLET PO PRN ×2 (13:00→20:33)
[2018-01-15] MEDS: ALPRAZolam 1 MG TABLET PO PRN (13:00)
[2018-01-15] MEDS: *HR* OxyCODONE/APAP 5/325 TABLET PO PRN ×2 (14:38→21:43)
[2018-01-15] MEDS ORDERED: *HR* LORazepam 1 MG TABLET PO ONE (20:05)
[2018-01-16] MEDS: Ipratropium/Albuterol Neb 3 ML IH SCH ×4 (03:33→22:05)
[2018-01-16 03:39] LABS: Basophils % 0.1 %; Eosinophils # 0.3 K/mcL (0.0-0.6); Hematocrit 23.8 % (35.3-44.9); Immature Granulocytes % 0.4 % (0-4); Lymphocytes # 1.1 K/mcL (0.6-4.6); Lymphocytes % 6.9 %; Mean Corpuscular HGB Conc 29.4 g/dL (31.6-35.5); Mean Corpuscular Hemoglobin 24.6 pg (28.0-33.3); Mean Corpuscular Volume 83.8 fL (83.0-100.0); Mean Platelet Volume 9.4 fL (9.4-12.4); Monocytes # 0.8 K/mcL (0.0-1.3); Platelet Count 309 K/mcL (140-400); Red Blood Count 2.84 M/mcL (3.82-4.97); Red Cell Distribution Width 26.5 % (11.5-14.5); Segmented Neutrophils % 85.6 %
[2018-01-16 04:06] LABS: Neutrophils # 13.4 K/mcL (1.6-8.9)
[2018-01-16 04:15] LABS: BUN/Creatinine Ratio 16 (6-26); Blood Urea Nitrogen 11 mg/dL (8-23); Calcium 8.1 mg/dL (8.6-10.3); Carbon Dioxide 28 mEq/L (23-29); Chloride 92 mEq/L (98-107); Glucose 119 mg/dL (70-105); Osmolality,Calculated 267 (280-300); Potassium 3.1 mEq/L (3.5-5.1); Sodium 128 mEq/L (136-145); eGFR For Non-African Americans > 60 (> 60)
[2018-01-16 04:41] LABS: Anisocytosis 1+ (Not Present); Hypochromasia Present (Not Present); Platelet Estimate Normal (Normal); Polychromasia 1+ (Not Present)
[2018-01-16] MEDS: *HR* Heparin 5,000 UNIT/ML VIAL SQ SCH ×2 (05:08→17:27)
[2018-01-16] MEDS: *HR* OxyCODONE/APAP 5/325 TABLET PO PRN (07:38)
[2018-01-16] MEDS: Loratadine 10 MG TABLET PO SCH (07:39)
[2018-01-16] MEDS: Fluticasone Propionate Nasal 50 MCG/SPRAY BOTTLE NS SCH (07:41)
[2018-01-16] MEDS: hydroCHLOROthiazide 25 MG TABLET PO SCH (07:41)
[2018-01-16] MEDS: Gabapentin 400 MG CAPSULE PO SCH ×4 (07:41→20:08)
[2018-01-16] MEDS: Folic Acid 1 MG TABLET PO SCH (07:41)
[2018-01-16] MEDS: Nicotine 21 MG PATCH.TD24 TD SCH (07:42)
[2018-01-16] MEDS: amLODIPine 5 MG TABLET PO SCH (07:43)
[2018-01-16] MEDS: OMEGA 3 FISH OIL PO SCH (07:43)
[2018-01-16] MEDS: Metoprolol XL (24 HR) Succ 25 MG TAB.ER.24H PO SCH (07:44)
[2018-01-16] MEDS: Cholecalciferol (D-3) 1,000 UNIT TABLET PO SCH (07:44)
[2018-01-16] MEDS ORDERED: Potassium Chloride 40 MEQ, Lidocaine 1% 2 ML in D5% in Water 500 ML IVPB ONE (07:45)
[2018-01-16] MEDS: Cyanocobalamin (B-12) 1,000 MCG TABLET PO SCH (07:45)
[2018-01-16] MEDS: Potassium Chloride Elixir 20 MEQ/15 ML UDC PO ONE ×2 (08:27→08:31)
[2018-01-16] MEDS: *HR* HYDROcodone/Acet 5/325 mg TABLET PO PRN (08:57)
[2018-01-16] MEDS ORDERED: Benzonatate 100 MG CAPSULE PO PRN (09:20)
[2018-01-16 09:38] LABS: Hematocrit 25.5 % (35.3-44.9); Hemoglobin 7.6 g/dL (11.5-15.4)
--- NOTE | 2018-01-16 09:45 | Internal Med Progress Note ---
<Iván Franco - Last Filed: 01/16/18 09:42> Hospitalist Progress Note - Encounter Date of Encounter: 01/16/18 Time of Encounter: 09:42 - Subjective Interval History: Patient is postop day 2 Mireya fundoplication She complains of pain at the surgical site induced with cough She denies shortness of breath or chest pain, states she has not had a bowel movement at No acute events overnight - Exam Vitals: Temp Pulse Resp BP Pulse Ox 99.8 F H 88 15 90/59 95 01/16/18 07:30 01/16/18 07:30 01/16/18 07:30 01/16/18 07:30 01/16/18 07:30 Exam: Patient is in no acute distress, alert and oriented 3 Heart is in regular rate and rhythm with pacemaker, no murmur, rub, gallop Lungs clear to auscultation bilaterally, no wheezes, rhonchi, rales Abdomen is soft and diffusely tender, more so around surgical site, bandage in place over surgical site is clean and dry, bowel sounds present Legs are nonedematous Skin warm and dry - Assessment and Plan (1) Acute blood loss anemia Current Visit: Yes Status: Acute Assessment and Plan: Patient is POD #2 S/P reduction of gastric, paraesophageal hernia, mireya fundoplication, mesh removal H&H stable this morning, vitals and other lab results within normal range or stable Patient complains of postoperative surgical site pain especially induced by coughing She has a history of environmental allergies and reflux and COPD which all could be causing her to cough She is already on appropriate bronchodilator therapy and incentive spirometry, as well as inhaled nasal corticosteroids and antihistamines and omeprazole I have added on Ashlie Cleaning to help with her cough Surgery team is on board and is managing patient's pain control Patient is tolerating clear liquid diet well She is receiving appropriate prophylaxis for DVT and reflux, I also educated her to use her incentive spirometer more frequently We will continue to monitor her clinical disposition and labs closely (2) COPD (chronic obstructive pulmonary disease) Current Visit: Yes Status: Chronic Assessment and Plan: Plan as seen above Patient is receiving appropriate bronchodilator therapy DVT Prophylaxis: Heparin subcutaneous 5000 units every 12 hours - Time Spent with Patient Total time spent is greater than 50% in coordination of care (as documented) at patient's floor/unit and/or counseling patient: Internal Medicine: Result - Labs CBC & Chem 7: 01/16/18 02:52 01/16/18 02:52 Labs: Short CBC 01/16/18 Range/Units 02:52 WBC 15.6 H (4.3-11.1) K/mcL Hgb 7.0 L D (11.5-15.4) g/dL Hct 23.8 L (35.3-44.9) % Plt Count 309 (140-400) K/mcL Neutrophils # 13.4 H (1.6-8.9) K/mcL BMP 01/16/18 02:52 Sodium 128 L Potassium 3.1 L D Chloride 92 L Carbon Dioxide 28 BUN 11 Creatinine 0.69 Glucose 119 H Calcium 8.1 L - ABG Interpretation ABG results: PT/INR, D-dimer PT 11.4 Seconds (9.4-12.1) 01/14/18 04:46 - VTE Documentation of Mechanical Device: Intermittent pneumatic compression device Consult Discharge Plan - Plan Instructions: Adult Open Mireya Fundoplication (DC) Additional Instructions: General Instructions After Mireya Surgery 1. No pushing, pulling, or lifting greater than 15 lbs for two weeks. 2. You may shower beginning today, but no tub baths, soaking, or swimming for 2 weeks. 3. You may resume driving when you are off narcotics and are safe to react in a car. 4. Take narcotics as directed. Do not take more narcotics then directed and do not share your narcotics with any other person. Do not drink alcohol while on narcotics. 5. Take stool softeners (Colace) or a water based laxative (Miramax) while taking narcotics. You may hold for loose stools. 6. Report any fevers greater than 100.5F, increase abdominal discomfort, drainage that looks like pus, increased redness or pain at the surgical site, or any vomiting. 7. Report any pain in the calves, shortness of breath, or rapid heartbeat. 8. Continue to take your heartburn medications until directed to stop. Do not stop them abruptly as this can cause symptoms of reflux. 9. Do not drink alcohol or carbonated beverages. 10. Do not deviate from the recommended Mireya diet below. Doing so can affect your outcomes. [place] [facility] Diet After Mireya Fundoplication Surgery This diet information is for patients who have recently had Mireya Fundoplication Surgery to correct reflux disease or to repair various types of hernias, such as hiatal hernia and intrathoracic stomach. This diet may also be used for other gastrointestinal surgeries, such as Heller myotomy and repair of achalasia. The diet will help control diarrhea, excess gas and swallowing problems, which may occur after this type of surgery. Important Steps to Keep Your Stomach From Stretching Eat small, frequent meals (six to eight per day). This will help you consume the majority of the nutrients you need without causing your stomach to feel full or distended. Drinking large amounts of fluids with meals can stretch your stomach. You may drink fluids between meals as often as you like, but limit fluids to 1/2 cup (4 fluid ounces) with meals and one cup (8 fluid ounces) with snacks. Sit upright while eating, and stay upright for 30 minutes after each meal. [place] can help food move through your digestive tract. Do not lie down after eating. Sit upright for 2 hours after your last meal or snack of the day. Eat very slowly. Take your time when eating. Take small bites and chew your food well to rigger helper in swallowing and digestion. Avoid crusty breads and sticky, gummy foods, such as bananas, fresh doughy breads, rolls and doughnuts. These types of foods become sticky and difficult to swallow. Toasted breads tend to be better tolerated. Lastly, if you eat sweets, consume them at the end of your meal to avoid a group of symptoms referred to as dumping syndrome. This describes the rapid emptying of foods from the stomach to the small intestine. Sweetened beverages, candy and desserts move more rapidly and dump quickly into the intestines. This can cause symptoms of nausea, weakness, cold sweats, cramps, diarrhea and dizzy spells. Important Steps to Avoid Gas Do not drink through a straw, chew gum, or chew tobacco. These actions cause you to swallow air, which will produce excess gas in your stomach. Chew with your mouth closed and chew your food thoroughly. Avoid foods that cause stomach gas and distention. The foods include corn, dried beans, peas, lentils, onions, broccoli, cauliflower, and any food item from the [employer]bage family. Do not drink carbonated drinks, alcohol, citrus, or tomato products. What Will I Be Able To Eat and Drink After Surgery After Mireya Fundoplication Surgery, your diet will be advanced slowly by your surgeon. Generally, you will be on a thin/clear liquid diet for the first 10 days. Then you will advance to the full liquid diet for 4 days and eventually to a Mireya soft diet for 7 days. After any surgery, protein consumption is important for healing. To get enough protein, drink 3-4 [place] Instant Breakfast, Ensure, or equivalent daily. Reminder: Carbonated beverages (such as sodas, energy drinks, flavored carbonated water), and alcohol are not permitted for the 1st 6 to 8 weeks after surgery. After this time you may attempt to reintroduce them in small amounts. Please note: Dairy products such as milk, ice cream, and pudding may cause diarrhea in some people after surgery. You may need to avoid milk products. If so you may substitute them with lactose free beverages, such as soy, rice, lactate, or almond milk. Please be aware that each patient's tolerance to food is different. Your doctor will advance your diet depending on how well you progress after surgery. Thin Liquid Diet The first diet after Mireya Fundoplication Surgery is the thin liquids diet. Follow this diet for postoperative days 1-10 01/14- 01/23/2018. Thin liquids include: Apple, Cranberry, or Grape Juice (no citrus juice) Chicken Broth Beef Broth Flavored Gelatin (Jell-O) Decaffeinated Tea or Coffee Popsicles or Greek Ice Caffeinated Beverages Will Be Permitted Based upon Tolerance and at a later date Dairy if tolerated Thin Milkshakes (strawberry or vanilla flavored- No chocolate) Drink 3-4 [place] instant breakfast, Ensure, or equivalent daily. May be mixed with dairy for thin milkshakes Full Liquid Diet Follow this diet for postoperative days -14 01/24 - 01/27/2018. Full liquid diet includes anything in the thin liquid diet plus: Milk: Dairy, Soy, Rice, and [place] (No Chocolate) Cream of Wheat, Cream of Rice, Grits Strained Creamed Soups (No Tomato or Broccoli) Vanilla and [place] Flavored Ice Cream Sherbet Vanilla and Butterscotch Pudding (No Chocolate or Coconut) Continue 3-4 [place] Instant Breakfast, Ensure, or an Equivalent Daily. May be mixed with Dairy for Thin Milkshakes. Mireya Soft Diet Follow this diet for postoperative days 15-20 01/28 - 02/02/2018. (If you are consuming enough protein, you may stop the protein supplements). Please note: You will need extra fluids throughout the day to meet your fluid needs. Referrals: Batsheva Gomez CNP [Advanced Practice Nurse] - 01/26/18 9:30 am Wanda Veras CNP [Partnered Physician] - 02/03/18 12:30 pm Franci Davenport CNP [Advanced Practice Nurse] - 01/30/18 1:00 pm <Jeffrey Villa - Last Filed: 01/16/18 11:56> Hospitalist Progress Note - Encounter Date of Encounter: 01/16/18 - Exam Vitals: Temp Pulse Resp BP Pulse Ox 100.1 F H 83 16 94/61 93 01/16/18 10:42 01/16/18 10:42 01/16/18 10:42 01/16/18 10:42 01/16/18 10:42 - Assessment and Plan (1) Acute blood loss anemia Current Visit: Yes Status: Acute (2) COPD (chronic obstructive pulmonary disease) Current Visit: Yes Status: Chronic (3) Gastric volvulus Current Visit: Yes Status: Acute (4) Melena Current Visit: Yes Status: Acute (5) Hiatal hernia Current Visit: Yes Status: Chronic (6) DVT prophylaxis Current Visit: No Status: Acute - Time Spent with Patient Total time spent is greater than 50% in coordination of care (as documented) at patient's floor/unit and/or counseling patient: Internal Medicine: Result - Labs CBC & Chem 7: 01/16/18 09:11 01/16/18 02:52 Labs: Short CBC 01/16/18 01/16/18 Range/Units 02:52 09:11 WBC 15.6 H (4.3-11.1) K/mcL Hgb 7.0 L D 7.6 L (11.5-15.4) g/dL Hct 23.8 L 25.5 L (35.3-44.9) % Plt Count 309 (140-400) K/mcL Neutrophils # 13.4 H (1.6-8.9) K/mcL BMP 01/16/18 02:52 Sodium 128 L Potassium 3.1 L D Chloride 92 L Carbon Dioxide 28 BUN 11 Creatinine 0.69 Glucose 119 H Calcium 8.1 L - ABG Interpretation ABG results: PT/INR, D-dimer PT 11.4 Seconds (9.4-12.1) 01/14/18 04:46 - Attending Attestation I have seen and examined this patient independently. I have discussed with resident physician Dr. Franco regarding the management plan. Agree with the documentation. <Iván Franco - Last Filed: 01/16/18 09:42> (2) COPD (chronic obstructive pulmonary disease) Qualifiers: COPD type: unspecified COPD Qualified Code(s): J44.9 - Chronic obstructive pulmonary disease, unspecified <Jeffrey Villa - Last Filed: 01/16/18 11:56> (2) COPD (chronic obstructive pulmonary disease) Qualifiers: COPD type: unspecified COPD Qualified Code(s): J44.9 - Chronic obstructive pulmonary disease, unspecified
[2018-01-16] MEDS: D5% in 0.45% NACL 1,000 ML IVC SCH (09:50)
[2018-01-16 10:05] LABS: Iron < 10 mcg/dL (50-170); Transferrin 240 mg/dL (203-362)
--- NOTE | 2018-01-16 10:05 | General Surgery Progress Note ---
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 #2 repair of paraesophageal hernia. #3 Mireya fundoplication. #4 explant (removal) mesh Anesthesia: GETA Surgeon: Phillip Leums POD #2 as above. Exam is as expected. She is tolerating clears without nausea. Denies reflux. No evidence of bleeding or concern for surgical complication at this time. She is noted to have acute on chronic anemia. source unclear. We did order iron studies as she may benefit from Venofer. Plan: -Continue clears without carbonation per Mireya diet recommendations -continue supportive care and discomfort management add scheduled Ofirmev Q6 hours for 3 days, placed abdominal binder, continue PRN medications -out of bed to chair for all trays. Do not consume your liquid/meals while in bed -Ambulate in the halls 3 times daily with assistance -continue G.I. and DVT prophylaxis (of note she will be recommended to continue her PPI therapy as an outpatient until scene and follow-up). -Replace electrolytes as indicated per primary team -Will likely be ready for dispo (from a surgical perspective on Tuesday) (2) Hiatal hernia Current Visit: Yes Status: Chronic Subjective Patient reports: still having pain (worse with coughing), tolerating liquids well, flatus, no bowel movement, afebrile Objective Vital Signs - Last 8 Hours Temp Pulse Resp BP Pulse Ox 01/16/18 07:30 99.8 F H 88 15 90/59 95 01/16/18 05:04 99.1 F 87 16 79/49 90 01/16/18 03:33 16 93 Intake and Output 01/15/18 01/16/18 01/16/18 23:59 07:59 15:59 Intake Total 480 / 480 550 / 550 120 / 120 Output Total 0 / 0 500 / 500 Balance 480 / 480 50 / 50 120 / 120 Intake: IV Fluids 550 / 550 D5% And 0.45% Nacl 1000 Ml Bag 550 / 550 1,000 ML @ 75 mls/hr IVC . [id number] [facility] Rx#:[id number] Oral 480 / 480 0 / 0 120 / 120 Output: Urine 0 / 0 0 / 0 Catheter 500 / 500 Other: Meal Dinner Breakfast - General physical appearance no distress, moderate pain - Eyes normal ocular movement - ENT poor halfway, dentures, atraumatic, normocephalic - Neck Neck exam: trachea midline - Respiratory other (Decreaed, course, tight) - Cardiovascular Cardiovascular exam: Present: RRR - Abdomen Abdomen: Present: bowel sounds present, soft, tender - Incision Incision: Present: clean and dry, intact - Integumentary no rash - Neurologic normal sensation - Musculoskeletal normal posture - Psychiatric oriented to time, oriented to person, oriented to place, speech is normal (but garbled d/t edentulous), memory intact - Labs 01/16/18 09:11 01/16/18 02:52 Diabetes panel 01/16/18 Range/Units 02:52 Sodium 128 L (136-145) mEq/L Potassium 3.1 L D (3.5-5.1) mEq/L Chloride 92 L (98-107) mEq/L Carbon Dioxide 28 (23-29) mEq/L BUN 11 (8-23) mg/dL Creatinine 0.69 (0.60-1.20) mg/dL Glucose 119 H (70-105) mg/dL Calcium 8.1 L (8.6-10.3) mg/dL Calcium panel 01/16/18 Range/Units 02:52 Calcium 8.1 L (8.6-10.3) mg/dL Pituitary panel 01/16/18 Range/Units 02:52 Sodium 128 L (136-145) mEq/L Potassium 3.1 L D (3.5-5.1) mEq/L Chloride 92 L (98-107) mEq/L Carbon Dioxide 28 (23-29) mEq/L BUN 11 (8-23) mg/dL Creatinine 0.69 (0.60-1.20) mg/dL Glucose 119 H (70-105) mg/dL Calcium 8.1 L (8.6-10.3) mg/dL Adrenal panel 01/16/18 Range/Units 02:52 Sodium 128 L (136-145) mEq/L Potassium 3.1 L D (3.5-5.1) mEq/L Chloride 92 L (98-107) mEq/L Carbon Dioxide 28 (23-29) mEq/L BUN 11 (8-23) mg/dL Creatinine 0.69 (0.60-1.20) mg/dL Glucose 119 H (70-105) mg/dL Calcium 8.1 L (8.6-10.3) mg/dL - VTE Documentation of Mechanical Device: Intermittent pneumatic compression device Consult Discharge Plan - Plan Instructions: Adult Open Mireya Fundoplication (DC) Additional Instructions: General Instructions After Mireya Surgery 1. No pushing, pulling, or lifting greater than 15 lbs for two weeks. 2. You may shower beginning today, but no tub baths, soaking, or swimming for 2 weeks. 3. You may resume driving when you are off narcotics and are safe to react in a car. 4. Take narcotics as directed. Do not take more narcotics then directed and do not share your narcotics with any other person. Do not drink alcohol while on narcotics. 5. Take stool softeners (Colace) or a water based laxative (Miramax) while taking narcotics. You may hold for loose stools. 6. Report any fevers greater than 100.5F, increase abdominal discomfort, drainage that looks like pus, increased redness or pain at the surgical site, or any vomiting. 7. Report any pain in the calves, shortness of breath, or rapid heartbeat. 8. Continue to take your heartburn medications until directed to stop. Do not stop them abruptly as this can cause symptoms of reflux. 9. Do not drink alcohol or carbonated beverages. 10. Do not deviate from the recommended Mireya diet below. Doing so can affect your outcomes. [facility] Diet After Mireya Fundoplication Surgery This diet information is for patients who have recently had Mireya Fundoplication Surgery to correct reflux disease or to repair various types of hernias, such as hiatal hernia and intrathoracic stomach. This diet may also be used for other gastrointestinal surgeries, such as Heller myotomy and repair of achalasia. The diet will help control diarrhea, excess gas and swallowing problems, which may occur after this type of surgery. Important Steps to Keep Your Stomach From Stretching Eat small, frequent meals (six to eight per day). This will help you consume the majority of the nutrients you need without causing your stomach to feel full or distended. Drinking large amounts of fluids with meals can stretch your stomach. You may drink fluids between meals as often as you like, but limit fluids to 1/2 cup (4 fluid ounces) with meals and one cup (8 fluid ounces) with snacks. Sit upright while eating, and stay upright for 30 minutes after each meal. [place] can help food move through your digestive tract. Do not lie down after eating. Sit upright for 2 hours after your last meal or snack of the day. Eat very slowly. Take your time when eating. Take small bites and chew your food well to bartender helper in swallowing and digestion. Avoid crusty breads and sticky, gummy foods, such as bananas, fresh doughy breads, rolls and doughnuts. These types of foods become sticky and difficult to swallow. Toasted breads tend to be better tolerated. Lastly, if you eat sweets, consume them at the end of your meal to avoid a group of symptoms referred to as dumping syndrome. This describes the rapid emptying of foods from the stomach to the small intestine. Sweetened beverages, candy and desserts move more rapidly and dump quickly into the intestines. This can cause symptoms of nausea, weakness, cold sweats, cramps, diarrhea and dizzy spells. Important Steps to Avoid Gas Do not drink through a straw, chew gum, or chew tobacco. These actions cause you to swallow air, which will produce excess gas in your stomach. Chew with your mouth closed and chew your food thoroughly. Avoid foods that cause stomach gas and distention. The foods include corn, dried beans, peas, lentils, onions, broccoli, cauliflower, and any food item from the cabbage family. Do not drink carbonated drinks, alcohol, citrus, or tomato products. What Will I Be Able To Eat and Drink After Surgery After Mireya Fundoplication Surgery, your diet will be advanced slowly by your surgeon. Generally, you will be on a thin/clear liquid diet for the first 10 days. Then you will advance to the full liquid diet for 4 days and eventually to a Mireya soft diet for 7 days. After any surgery, protein consumption is important for healing. To get enough protein, drink 3-4 [place] Instant Breakfast, Ensure, or equivalent daily. Reminder: Carbonated beverages (such as sodas, energy drinks, flavored carbonated water), and alcohol are not permitted for the 1st 6 to 8 weeks after surgery. After this time you may attempt to reintroduce them in small amounts. Please note: Dairy products such as milk, ice cream, and pudding may cause diarrhea in some people after surgery. You may need to avoid milk products. If so you may substitute them with lactose free beverages, such as soy, rice, lactate, or almond milk. Please be aware that each patient's tolerance to food is different. Your doctor will advance your diet depending on how well you progress after surgery. Thin Liquid Diet The first diet after Mireya Fundoplication Surgery is the thin liquids diet. Follow this diet for postoperative days 1-10 01/14- 01/23/2018. Thin liquids include: Apple, Cranberry, or Grape Juice (no citrus juice) Chicken Broth Beef Broth Flavored Gelatin (Jell-O) Decaffeinated Tea or Coffee Popsicles or [place] Ice Caffeinated Beverages Will Be Permitted Based upon Tolerance and at a later date Dairy if tolerated Thin Milkshakes (strawberry or vanilla flavored- No chocolate) Drink 3-4 [place] instant breakfast, Ensure, or equivalent daily. May be mixed with dairy for thin milkshakes Full Liquid Diet Follow this diet for postoperative days 11-14 01/24 - 01/27/2018. Full liquid diet includes anything in the thin liquid diet plus: Milk: Dairy, Soy, Rice, and [place] (No Chocolate) Cream of Wheat, Cream of Rice, Grits Strained Creamed Soups (No Tomato or Broccoli) Vanilla and [place] Flavored Ice Cream Sherbet Vanilla and Butterscotch Pudding (No Chocolate or Coconut) Continue 3-4 [place] Instant Breakfast, Ensure, or an Equivalent Daily. May be mixed with Dairy for Thin Milkshakes. Mireya Soft Diet Follow this diet for postoperative days 15-20 01/28 - 02/02/2018. (If you are consuming enough protein, you may stop the protein supplements). Please note: You will need extra fluids throughout the day to meet your fluid needs. Referrals: Batsheva Gomez CNP [Advanced Practice Nurse] - 01/26/18 9:30 am Wanda Veras CNP [Partnered Physician] - 02/03/18 12:30 pm Franci Davenport CNP [Advanced Practice Nurse] - 01/30/18 1:00 pm <Linda Stewart - Last Filed: 01/16/18 11:42> Date of Encounter: 01/16/18 - Assessment and Plan (1) Status post Mireya fundoplication Current Visit: Yes Status: Acute patient with a lot of pain today secondary to congested thick mucus cough binder OOB to chair prn pain control continue clears prn antiemetics gi/dvt prophylaxis ambulate (2) History of repair of hiatal hernia Current Visit: Yes Status: Acute (3) Anemia Current Visit: No Status: Acute Hb 7.9, not tacchycardic, no shortness of breath, no chest pain, monitor Qualifiers: Anemia type: unspecified type Qualified Code(s): D64.9 - Anemia, unspecified (4) Cough Current Visit: Yes Status: Acute mucomyst duonebs aggressive pulmonary toilet/IS Subjective Patient reports: still having pain, tolerating liquids well, flatus, no bowel movement, afebrile Objective Vital Signs - Last 8 Hours Temp Pulse Resp BP Pulse Ox 01/16/18 10:42 100.1 F H 83 16 94/61 93 01/16/18 07:30 99.8 F H 88 15 90/59 95 01/16/18 05:04 99.1 F 87 16 79/49 90 Intake and Output 01/15/18 01/16/18 01/16/18 23:59 07:59 15:59 Intake Total 480 / 480 550 / 550 220 / 220 Output Total 0 / 0 500 / 500 350 / 350 Balance 480 / 480 50 / 50 -130 / -130 Intake: IV Fluids 550 / 550 D5% And 0.45% Nacl 1000 Ml Bag 550 / 550 1,000 ML @ 75 mls/hr IVC . [id number] [facility] Rx#:[id number] Oral 480 / 480 0 / 0 220 / 220 Output: Urine 0 / 0 0 / 0 Catheter 500 / 500 350 / 350 Other: Meal Dinner Breakfast - General physical appearance well developed, well nourished, no distress, moderate pain - Eyes normal ocular movement - ENT atraumatic, normocephalic - Neck Neck exam: trachea midline - Respiratory normal expansion, normal respiratory effort, other (congested cough) - Cardiovascular Cardiovascular exam: Present: RRR - Abdomen Abdomen: Present: bowel sounds present, soft, tender (appropriate post op tenderness) - Incision Incision: Present: clean and dry, intact - Integumentary no rash - Neurologic normal sensation - Musculoskeletal normal posture - Psychiatric oriented to time, oriented to person, oriented to place, speech is normal, memory intact - Labs 01/16/18 09:11 01/16/18 02:52 Diabetes panel 01/16/18 Range/Units 02:52 Sodium 128 L (136-145) mEq/L Potassium 3.1 L D (3.5-5.1) mEq/L Chloride 92 L (98-107) mEq/L Carbon Dioxide 28 (23-29) mEq/L BUN 11 (8-23) mg/dL Creatinine 0.69 (0.60-1.20) mg/dL Glucose 119 H (70-105) mg/dL Calcium 8.1 L (8.6-10.3) mg/dL Calcium panel 01/16/18 Range/Units 02:52 Calcium 8.1 L (8.6-10.3) mg/dL Pituitary panel 01/16/18 Range/Units 02:52 Sodium 128 L (136-145) mEq/L Potassium 3.1 L D (3.5-5.1) mEq/L Chloride 92 L (98-107) mEq/L Carbon Dioxide 28 (23-29) mEq/L BUN 11 (8-23) mg/dL Creatinine 0.69 (0.60-1.20) mg/dL Glucose 119 H (70-105) mg/dL Calcium 8.1 L (8.6-10.3) mg/dL Adrenal panel 01/16/18 Range/Units 02:52 Sodium 128 L (136-145) mEq/L Potassium 3.1 L D (3.5-5.1) mEq/L Chloride 92 L (98-107) mEq/L Carbon Dioxide 28 (23-29) mEq/L BUN 11 (8-23) mg/dL Creatinine 0.69 (0.60-1.20) mg/dL Glucose 119 H (70-105) mg/dL Calcium 8.1 L (8.6-10.3) mg/dL - Attending Attestation I have personally performed a face to face evaluation on this patient. I have reviewed and agree with the care plan. History and Exam by me shows:
[2018-01-16] MEDS: *HR* OxyCODONE/APAP 10/325 TABLET PO PRN (10:54)
[2018-01-16] MEDS: 0.9 % Sodium Chloride 1,000 ML IVC SCH (11:37)
[2018-01-16] MEDS: Acetaminophen IV 1,000 MG/100 ML INFUS..BTL IVPB SCH ×2 (11:39→17:24)
[2018-01-16] MEDS ORDERED: Acetylcysteine 10% 2 ML INHSOL IH SCH ×2 (12:00→14:45)
[2018-01-16] MEDS: Iron Sucrose Complex 250 MG in 0.9 % Sodium Chloride 250 ML IVPB SCH (12:19)
[2018-01-16] MEDS ORDERED: 0.9 % Sodium Chloride 500 ML IVC ONE (15:34)
[2018-01-16 16:00] LABS: Hematocrit 23.6 % (35.3-44.9); Hemoglobin 7.2 g/dL (11.5-15.4)
[2018-01-16] MEDS: Acetylcysteine 10% 2 ML INHSOL IH SCH ×2 (16:27→22:05)
[2018-01-16] MEDS: Mirtazapine 15 MG TABLET PO SCH (20:09)
[2018-01-17] MEDS: *HR* OxyCODONE/APAP 10/325 TABLET PO PRN ×2 (00:31→06:41)
[2018-01-17] MEDS: ALPRAZolam 1 MG TABLET PO PRN (00:32)
[2018-01-17] MEDS: Acetaminophen IV 1,000 MG/100 ML INFUS..BTL IVPB SCH ×4 (00:35→17:30)
[2018-01-17] MEDS: Acetylcysteine 10% 2 ML INHSOL IH SCH ×4 (03:56→20:47)
[2018-01-17] MEDS: Ipratropium/Albuterol Neb 3 ML IH SCH ×4 (03:56→20:47)
[2018-01-17] MEDS: *HR* Heparin 5,000 UNIT/ML VIAL SQ SCH ×2 (06:36→17:28)
[2018-01-17 07:04] LABS: Basophils % 0.2 %; Hematocrit 27.2 % (35.3-44.9); Hemoglobin 8.1 g/dL (11.5-15.4); Immature Granulocytes % 0.4 % (0-4); Lymphocytes # 1.1 K/mcL (0.6-4.6); Lymphocytes % 7.6 %; Mean Corpuscular HGB Conc 29.8 g/dL (31.6-35.5); Mean Corpuscular Hemoglobin 25.6 pg (28.0-33.3); Mean Corpuscular Volume 85.8 fL (83.0-100.0); Mean Platelet Volume 9.3 fL (9.4-12.4); Monocytes # 0.8 K/mcL (0.0-1.3); Monocytes % 5.6 %; Neutrophils # 11.5 K/mcL (1.6-8.9); Platelet Count 283 K/mcL (140-400); Red Blood Count 3.17 M/mcL (3.82-4.97); Red Cell Distribution Width 26.4 % (11.5-14.5); Segmented Neutrophils % 79.2 %
--- NOTE | 2018-01-17 07:08 | General Surgery Progress Note ---
<Chas Hernandez R - Last Filed: 01/17/18 08:04> Date of Encounter: 01/17/18 Time of Encounter: 06:45 - Assessment and Plan (1) Gastric volvulus Current Visit: Yes Status: Acute POD #3 S/P reduction of gastric volvulus, paraesophageal hernia, mireya fundoplication, mesh removal Patient is doing well postoperatively. Pain controlled. Vital signs are stable, afebrile. Patient does express concern with discharge diet plans, will speak with patient again about home diet Plan: Advance to full liquid diet with Ensure supplement Comfort care and pain management IV fluids EPCD's Incentive spirometry PPI prophylaxis Dressing changes Ambulate TID with assistance (2) Smoking history Current Visit: Yes Status: Chronic Continue nicotine patch daily (3) COPD (chronic obstructive pulmonary disease) Current Visit: Yes Status: Chronic Continue duonebs incentive spirometry Qualifiers: COPD type: unspecified COPD Qualified Code(s): J44.9 - Chronic obstructive pulmonary disease, unspecified (4) Anemia Current Visit: No Status: Acute Patient H/H stable on repeat labs, vitals stable Started on Venofer Qualifiers: Anemia type: iron deficiency Iron deficiency anemia type: unspecified iron deficiency Qualified Code(s): D50.9 - Iron deficiency anemia, unspecified (5) DVT prophylaxis Current Visit: No Status: Acute EPCD's Heparin Ambulation TID Subjective Patient reports: no new complaints, still having pain, pain is less, flatus, no bowel movement, afebrile Narrative: Patient sleeping comfortably this morning. Admits to ongoing post-surgical pain , feels this is lessening. Tolerating clear liquid diet without nausea or vomiting. Objective Vital Signs - Last 8 Hours Temp Pulse Resp BP Pulse Ox 01/17/18 04:35 98.0 F 76 15 84/58 98 01/17/18 03:57 16 94 01/16/18 23:50 99.8 F H 84 15 97/67 96 Intake and Output 01/16/18 01/16/18 01/17/18 15:59 23:59 07:59 Intake Total 1204.5 / 1204.5 900 / 900 67 / 67 Output Total 750 / 750 0 / 0 1100 / 1100 Balance 454.5 / 454.5 900 / 900 -1033 / -1033 Intake: IV Fluids 984.5 / 984.5 900 / 900 67 / 67 0.9 % Sodium Chloride 1,000 ML 300 / 300 @ 50 mls/hr IVC .Q20H [facility] Rx#: [id number] 0.9 % Sodium Chloride 500 ML @ 500 / 500 999 mls/hr IVC .Q31M [facility] Rx#: [id number] D5% And 0.45% Nacl 1000 Ml Bag 100 / 100 1,000 ML @ 75 mls/hr IVC . [id number] [facility] Rx#:[id number] Ofirmev 1,000 mg/100 ml 1,000 100 / 100 100 / 100 67 / 67 mg In 100 ml @ 400 mls/hr IVPB Q6HR [facility] Rx#:[id number] Venofer 250 MG In 0.9 % Sodium 262.5 / 262.5 Chloride 250 ML @ 130 mls/hr IVPB DAILY [facility] Rx#:[id number] KCl 40 MEQ Xylocaine 2 ML In 522 / 522 Dextrose 5% 500 ML @ 130.5 mls/ hr IVPB ONCE [facility] Rx#:[id number] Oral 220 / 220 0 / 0 0 / 0 Output: Urine 0 / 0 Catheter 750 / 750 1100 / 1100 Other: Meal Lunch Percent of Meal Consumed 0% - General physical appearance well nourished, no distress, other (mild pain) - Eyes PERRL, normal ocular movement - ENT normal mucosa, atraumatic, normocephalic, Other (Edentulous) - Neck Neck exam: no masses, trachea midline, no venous distension - Respiratory normal expansion, clear to auscultation - Cardiovascular Cardiovascular exam: Present: RRR - Abdomen Abdomen: Present: bowel sounds present, soft, tender (expected post surgical tenderness) - Incision Incision: Present: clean and dry, intact (surgical fausto present and intact), approximated - Integumentary no rash - Neurologic CN 2-12 grossly intact - Psychiatric oriented to time, oriented to person, oriented to place, speech is normal - Labs 01/16/18 15:45 01/17/18 06:45 - VTE Documentation of Mechanical Device: Intermittent pneumatic compression device Consult Discharge Plan - Plan Instructions: Adult Open Mireya Fundoplication (DC) Additional Instructions: General Instructions After Mireya Surgery 1. No pushing, pulling, or lifting greater than 15 lbs for two weeks. 2. You may shower beginning today, but no tub baths, soaking, or swimming for 2 weeks. 3. You may resume driving when you are off narcotics and are safe to react in a car. 4. Take narcotics as directed. Do not take more narcotics then directed and do not share your narcotics with any other person. Do not drink alcohol while on narcotics. 5. Take stool softeners (Colace) or a water based laxative (Miramax) while taking narcotics. You may hold for loose stools. 6. Report any fevers greater than 100.5F, increase abdominal discomfort, drainage that looks like pus, increased redness or pain at the surgical site, or any vomiting. 7. Report any pain in the calves, shortness of breath, or rapid heartbeat. 8. Continue to take your heartburn medications until directed to stop. Do not stop them abruptly as this can cause symptoms of reflux. 9. Do not drink alcohol or carbonated beverages. 10. Do not deviate from the recommended Mireya diet below. Doing so can affect your outcomes. [place] [facility] Diet After Mireya Fundoplication Surgery This diet information is for patients who have recently had Mireya Fundoplication Surgery to correct reflux disease or to repair various types of hernias, such as hiatal hernia and intrathoracic stomach. This diet may also be used for other gastrointestinal surgeries, such as Heller myotomy and repair of achalasia. The diet will help control diarrhea, excess gas and swallowing problems, which may occur after this type of surgery. Important Steps to Keep Your Stomach From Stretching Eat small, frequent meals (six to eight per day). This will help you consume the majority of the nutrients you need without causing your stomach to feel full or distended. Drinking large amounts of fluids with meals can stretch your stomach. You may drink fluids between meals as often as you like, but limit fluids to 1/2 cup (4 fluid ounces) with meals and one cup (8 fluid ounces) with snacks. Sit upright while eating, and stay upright for 30 minutes after each meal. [place] can help food move through your digestive tract. Do not lie down after eating. Sit upright for 2 hours after your last meal or snack of the day. Eat very slowly. Take your time when eating. Take small bites and chew your food well to tester operator helper in swallowing and digestion. Avoid crusty breads and sticky, gummy foods, such as bananas, fresh doughy breads, rolls and doughnuts. These types of foods become sticky and difficult to swallow. Toasted breads tend to be better tolerated. Lastly, if you eat sweets, consume them at the end of your meal to avoid a group of symptoms referred to as dumping syndrome. This describes the rapid emptying of foods from the stomach to the small intestine. Sweetened beverages, candy and desserts move more rapidly and dump quickly into the intestines. This can cause symptoms of nausea, weakness, cold sweats, cramps, diarrhea and dizzy spells. Important Steps to Avoid Gas Do not drink through a straw, chew gum, or chew tobacco. These actions cause you to swallow air, which will produce excess gas in your stomach. Chew with your mouth closed and chew your food thoroughly. Avoid foods that cause stomach gas and distention. The foods include corn, dried beans, peas, lentils, onions, broccoli, cauliflower, and any food item from the cabbage family. Do not drink carbonated drinks, alcohol, citrus, or tomato products. What Will I Be Able To Eat and Drink After Surgery After Mireya Fundoplication Surgery, your diet will be advanced slowly by your surgeon. Generally, you will be on a thin/clear liquid diet for the first 10 days. Then you will advance to the full liquid diet for 4 days and eventually to a Mireya soft diet for 7 days. After any surgery, protein consumption is important for healing. To get enough protein, drink 3-4 [place] Instant Breakfast, Ensure, or equivalent daily. Reminder: Carbonated beverages (such as sodas, energy drinks, flavored carbonated water), and alcohol are not permitted for the 1st 6 to 8 weeks after surgery. After this time you may attempt to reintroduce them in small amounts. Please note: Dairy products such as milk, ice cream, and pudding may cause diarrhea in some people after surgery. You may need to avoid milk products. If so you may substitute them with lactose free beverages, such as soy, rice, lactate, or almond milk. Please be aware that each patient's tolerance to food is different. Your doctor will advance your diet depending on how well you progress after surgery. Thin Liquid Diet The first diet after Mireya Fundoplication Surgery is the thin liquids diet. Follow this diet for postoperative days 1-10 01/14- 01/23/2018. Thin liquids include: Apple, Cranberry, or Grape Juice (no citrus juice) Chicken Broth Beef Broth Flavored Gelatin (Jell-O) Decaffeinated Tea or Coffee Popsicles or [place] Ice Caffeinated Beverages Will Be Permitted Based upon Tolerance and at a later date Dairy if tolerated Thin Milkshakes (strawberry or vanilla flavored- No chocolate) Drink 3-4 [place] instant breakfast, Ensure, or equivalent daily. May be mixed with dairy for thin milkshakes Full Liquid Diet Follow this diet for postoperative days 11-14 01/24 - 01/27/2018. Full liquid diet includes anything in the thin liquid diet plus: Milk: Dairy, Soy, Rice, and [place] (No Chocolate) Cream of Wheat, Cream of Rice, Grits Strained Creamed Soups (No Tomato or Broccoli) Vanilla and [place] Flavored Ice Cream Sherbet Vanilla and Butterscotch Pudding (No Chocolate or Coconut) Continue 3-4 [place] Instant Breakfast, Ensure, or an Equivalent Daily. May be mixed with Dairy for Thin Milkshakes. Mireya Soft Diet Follow this diet for postoperative days 15-01/28 - 02/02/2018. (If you are consuming enough protein, you may stop the protein supplements). Please note: You will need extra fluids throughout the day to meet your fluid needs. Referrals: Batsheva Gomez CNP [Advanced Practice Nurse] - 01/26/18 9:30 am Wanda Veras CNP [Partnered Physician] - 02/03/18 12:30 pm Franci Davenport CNP [Advanced Practice Nurse] - 01/30/18 1:00 pm <Phillip Lemus - Last Filed: 01/17/18 08:36> Date of Encounter: 01/17/18 - Assessment and Plan (1) [place]ena Current Visit: Yes Status: Acute (2) Hiatal hernia Current Visit: Yes Status: Chronic (3) GERD (gastroesophageal reflux disease) Current Visit: Yes Status: Chronic Qualifiers: Esophagitis presence: without esophagitis Qualified Code(s): K21.9 - Gastro -esophageal reflux disease without esophagitis (4) Gastric volvulus Current Visit: Yes Status: Acute (5) Acute blood loss anemia Current Visit: Yes Status: Acute (6) COPD (chronic obstructive pulmonary disease) Current Visit: Yes Status: Chronic Qualifiers: COPD type: unspecified COPD Qualified Code(s): J44.9 - Chronic obstructive pulmonary disease, unspecified Objective Vital Signs - Last 8 Hours Temp Pulse Resp BP Pulse Ox 01/17/18 07:55 98.8 F 83 14 112/72 93 01/17/18 04:35 98.0 F 76 15 84/58 98 01/17/18 03:57 16 94 Intake and Output 01/16/18 01/17/18 01/17/18 23:59 07:59 15:59 Intake Total 900 / 900 867 / 867 Output Total 0 / 0 1100 / 1100 Balance 900 / 900 -233 / -233 Intake: IV Fluids 900 / 900 867 / 867 0.9 % Sodium Chloride 1,000 ML 300 / 300 700 / 700 @ 50 mls/hr IVC .Q20H [facility] Rx#: [id number] 0.9 % Sodium Chloride 500 ML @ 500 / 500 999 mls/hr IVC .Q31M [facility] Rx#: [id number] Ofirmev 1,000 mg/100 ml 1,000 100 / 100 167 / 167 mg In 100 ml @ 400 mls/hr IVPB Q6HR [facility] Rx#:[id number] Oral 0 / 0 0 / 0 Output: Urine 0 / 0 Catheter 1100 / 1100 - Labs 01/17/18 06:45 01/17/18 06:45 Diabetes panel 01/17/18 Range/Units 06:45 Sodium 130 L (136-145) mEq/L Potassium 4.0 (3.5-5.1) mEq/L Chloride 99 (98-107) mEq/L Carbon Dioxide 24 (23-29) mEq/L BUN 7 L (8-23) mg/dL Creatinine 0.55 L (0.60-1.20) mg/dL Glucose 85 (70-105) mg/dL Calcium 8.0 L (8.6-10.3) mg/dL Calcium panel 01/17/18 Range/Units 06:45 Calcium 8.0 L (8.6-10.3) mg/dL Pituitary panel 01/17/18 Range/Units 06:45 Sodium 130 L (136-145) mEq/L Potassium 4.0 (3.5-5.1) mEq/L Chloride 99 (98-107) mEq/L Carbon Dioxide 24 (23-29) mEq/L BUN 7 L (8-23) mg/dL Creatinine 0.55 L (0.60-1.20) mg/dL Glucose 85 (70-105) mg/dL Calcium 8.0 L (8.6-10.3) mg/dL Adrenal panel 01/17/18 Range/Units 06:45 Sodium 130 L (136-145) mEq/L Potassium 4.0 (3.5-5.1) mEq/L Chloride 99 (98-107) mEq/L Carbon Dioxide 24 (23-29) mEq/L BUN 7 L (8-23) mg/dL Creatinine 0.55 L (0.60-1.20) mg/dL Glucose 85 (70-105) mg/dL Calcium 8.0 L (8.6-10.3) mg/dL - Attending Attestation I examined this patient and my medical decision-making was reviewed with the Resident Physician. I agree with the documented findings, disposition and treatment plan as described except to the extent set forth below. The patient is seen and evaluated on morning rounds with the resident. The patient is doing quite well. She has no reflux. She is swallowing clear liquid diet very well. We will advance her to full liquids. The patient continues to negotiate her care either by I do not. She is highly motivated to be taken outside for smoking. I have counseled her that this would not be in her best interest and I have encouraged her to make decisions that are positive in her recovery Queta Lemus MD FACS
[2018-01-17 07:26] LABS: BUN/Creatinine Ratio 13 (6-26); Blood Urea Nitrogen 7 mg/dL (8-23); Carbon Dioxide 24 mEq/L (23-29); Chloride 99 mEq/L (98-107); Glucose 85 mg/dL (70-105); Osmolality,Calculated 267 (280-300); Sodium 130 mEq/L (136-145); eGFR For Non-African Americans > 60 (> 60)
[2018-01-17] MEDS: 0.9 % Sodium Chloride 1,000 ML IVC SCH (08:16)
[2018-01-17] MEDS: Nicotine 21 MG PATCH.TD24 TD SCH (08:19)
[2018-01-17] MEDS: Fluticasone Propionate Nasal 50 MCG/SPRAY BOTTLE NS SCH (08:20)
[2018-01-17] MEDS: Folic Acid 1 MG TABLET PO SCH (08:20)
[2018-01-17] MEDS: Loratadine 10 MG TABLET PO SCH (08:20)
[2018-01-17] MEDS: Metoprolol XL (24 HR) Succ 25 MG TAB.ER.24H PO SCH (08:21)
[2018-01-17] MEDS: OMEGA 3 FISH OIL PO SCH (08:21)
[2018-01-17] MEDS: Gabapentin 400 MG CAPSULE PO SCH ×3 (08:21→17:28)
[2018-01-17] MEDS: Cyanocobalamin (B-12) 1,000 MCG TABLET PO SCH (08:22)
[2018-01-17] MEDS: Cholecalciferol (D-3) 1,000 UNIT TABLET PO SCH (08:22)
[2018-01-17] MEDS: Iron Sucrose Complex 250 MG in 0.9 % Sodium Chloride 250 ML IVPB SCH (08:33)
[2018-01-17 08:40] LABS: Platelet Estimate Normal (Normal)
[2018-01-17 08:41] LABS: Anisocytosis 3+ (Not Present)
[2018-01-17 08:43] LABS: Poikilocytosis 1+ (Not Present); Spherocytes 1+ (Not Present)
[2018-01-17 08:44] LABS: Schistocytes 1+ (Not Present)
[2018-01-17] MEDS ORDERED: *HR* LORazepam 2 MG/ML VIAL IVP PRN ×2 (09:19→11:13)
[2018-01-17] MEDS ORDERED: *HR* LORazepam 0.5 MG TABLET PO PRN (14:30)
--- NOTE | 2018-01-17 15:10 | Internal Med Progress Note ---
<Iván Franco - Last Filed: 01/17/18 15:07> Hospitalist Progress Note - Encounter Date of Encounter: 01/17/18 Time of Encounter: 15:07 - Subjective Interval History: Patient is postop day 3 Mireya fundoplication Patient is still complaining of postop pain exacerbated by cough however her in the room also states that she has been lethargic Patient was falling asleep during my interview, did not have any other acute complaints No acute events overnight - Exam Vitals: Temp Pulse Resp BP Pulse Ox 99.4 F 80 14 95/61 95 01/17/18 14:00 01/17/18 14:00 01/17/18 14:00 01/17/18 14:00 01/17/18 14:00 Exam: Patient is in no acute distress, alert and oriented 3 Heart is in regular rate and rhythm with pacemaker, no murmur, rub, gallop Lungs clear to auscultation bilaterally, no wheezes, rhonchi, rales Abdomen is soft and diffusely tender, more so around surgical site, bandage in place over surgical site is clean and dry, bowel sounds present Legs are nonedematous Skin warm and dry - Assessment and Plan (1) Acute blood loss anemia Current Visit: Yes Status: Acute Assessment and Plan: Patient has been anemic since surgery, likely attributed to blood loss However this could also be due to iron deficiency, iron has been replaced Her hemoglobin has been stable today, there are no signs of active bleeding Due to the patient's lethargy is concerned that she may been receiving too much anxiolytic and pain medication. We have discontinued her Vicodin and decreased her Percocet and Ativan We will continue to monitor (2) COPD (chronic obstructive pulmonary disease) Current Visit: Yes Status: Chronic Assessment and Plan: Patient with chronic history of COPD, she is receiving bronchodilator and inhaled corticosteroid therapy here Respiratory status stable, she is receiving daytime and nighttime oxygen due to pain medication lethargy as opposed to respiratory distress She normally uses oxygen at night at home We will continue to monitor DVT Prophylaxis: Heparin subcutaneous 5000 units every 12 hours - Time Spent with Patient Total time spent is greater than 50% in coordination of care (as documented) at patient's floor/unit and/or counseling patient: Internal Medicine: Result - Labs CBC & Chem 7: 01/17/18 06:45 01/17/18 06:45 Labs: Short CBC 01/16/18 01/17/18 Range/Units 15:45 06:45 WBC 14.5 H (4.3-11.1) K/mcL Hgb 7.2 L 8.1 L (11.5-15.4) g/dL Hct 23.6 L 27.2 L (35.3-44.9) % Plt Count 283 (140-400) K/mcL Neutrophils # 11.5 H (1.6-8.9) K/mcL BMP 01/17/18 06:45 Sodium 130 L Potassium 4.0 Chloride 99 Carbon Dioxide 24 BUN 7 L Creatinine 0.55 L Glucose 85 Calcium 8.0 L - ABG Interpretation ABG results: PT/INR, D-dimer PT 11.4 Seconds (9.4-12.1) 01/14/18 04:46 - VTE Documentation of Mechanical Device: Intermittent pneumatic compression device Consult Discharge Plan - Plan Instructions: Adult Open Mireya Fundoplication (DC) Additional Instructions: General Instructions After Mireya Surgery 1. No pushing, pulling, or lifting greater than 15 lbs for two weeks. 2. You may shower beginning today, but no tub baths, soaking, or swimming for 2 weeks. 3. You may resume driving when you are off narcotics and are safe to react in a car. 4. Take narcotics as directed. Do not take more narcotics then directed and do not share your narcotics with any other person. Do not drink alcohol while on narcotics. 5. Take stool softeners (Colace) or a water based laxative (Miramax) while taking narcotics. You may hold for loose stools. 6. Report any fevers greater than 100.5F, increase abdominal discomfort, drainage that looks like pus, increased redness or pain at the surgical site, or any vomiting. 7. Report any pain in the calves, shortness of breath, or rapid heartbeat. 8. Continue to take your heartburn medications until directed to stop. Do not stop them abruptly as this can cause symptoms of reflux. 9. Do not drink alcohol or carbonated beverages. 10. Do not deviate from the recommended Mireya diet below. Doing so can affect your outcomes. [place] [facility] Diet After Mireya Fundoplication Surgery This diet information is for patients who have recently had Mireya Fundoplication Surgery to correct reflux disease or to repair various types of hernias, such as hiatal hernia and intrathoracic stomach. This diet may also be used for other gastrointestinal surgeries, such as Heller myotomy and repair of achalasia. The diet will help control diarrhea, excess gas and swallowing problems, which may occur after this type of surgery. Important Steps to Keep Your Stomach From Stretching Eat small, frequent meals (six to eight per day). This will help you consume the majority of the nutrients you need without causing your stomach to feel full or distended. Drinking large amounts of fluids with meals can stretch your stomach. You may drink fluids between meals as often as you like, but limit fluids to 1/2 cup (4 fluid ounces) with meals and one cup (8 fluid ounces) with snacks. Sit upright while eating, and stay upright for 30 minutes after each meal. [place] can help food move through your digestive tract. Do not lie down after eating. Sit upright for 2 hours after your last meal or snack of the day. Eat very slowly. Take your time when eating. Take small bites and chew your food well to steam fitter helper in swallowing and digestion. Avoid crusty breads and sticky, gummy foods, such as bananas, fresh doughy breads, rolls and doughnuts. These types of foods become sticky and difficult to swallow. Toasted breads tend to be better tolerated. Lastly, if you eat sweets, consume them at the end of your meal to avoid a group of symptoms referred to as dumping syndrome. This describes the rapid emptying of foods from the stomach to the small intestine. Sweetened beverages, candy and desserts move more rapidly and dump quickly into the intestines. This can cause symptoms of nausea, weakness, cold sweats, cramps, diarrhea and dizzy spells. Important Steps to Avoid Gas Do not drink through a straw, chew gum, or chew tobacco. These actions cause you to swallow air, which will produce excess gas in your stomach. Chew with your mouth closed and chew your food thoroughly. Avoid foods that cause stomach gas and distention. The foods include corn, dried beans, peas, lentils, onions, broccoli, cauliflower, and any food item from the cabbage family. Do not drink carbonated drinks, alcohol, citrus, or tomato products. What Will I Be Able To Eat and Drink After Surgery After Mireya Fundoplication Surgery, your diet will be advanced slowly by your surgeon. Generally, you will be on a thin/clear liquid diet for the first 10 days. Then you will advance to the full liquid diet for 4 days and eventually to a Mireya soft diet for 7 days. After any surgery, protein consumption is important for healing. To get enough protein, drink 3-4 [place] Instant Breakfast, Ensure, or equivalent daily. Reminder: Carbonated beverages (such as sodas, energy drinks, flavored carbonated water), and alcohol are not permitted for the 1st 6 to 8 weeks after surgery. After this time you may attempt to reintroduce them in small amounts. Please note: Dairy products such as milk, ice cream, and pudding may cause diarrhea in some people after surgery. You may need to avoid milk products. If so you may substitute them with lactose free beverages, such as soy, rice, lactate, or almond milk. Please be aware that each patient's tolerance to food is different. Your doctor will advance your diet depending on how well you progress after surgery. Thin Liquid Diet The first diet after Mireya Fundoplication Surgery is the thin liquids diet. Follow this diet for postoperative days 1-10 01/14- 01/23/2018. Thin liquids include: Apple, Cranberry, or Grape Juice (no citrus juice) Chicken Broth Beef Broth Flavored Gelatin (Jell-O) Decaffeinated Tea or Coffee Popsicles or [place] Ice Caffeinated Beverages Will Be Permitted Based upon Tolerance and at a later date Dairy if tolerated Thin Milkshakes (strawberry or vanilla flavored- No chocolate) Drink 3-4 [place] instant breakfast, Ensure, or equivalent daily. May be mixed with dairy for thin milkshakes Full Liquid Diet Follow this diet for postoperative days 11-14 01/24 - 01/27/2018. Full liquid diet includes anything in the thin liquid diet plus: Milk: Dairy, Soy, Rice, and [place] (No Chocolate) Cream of Wheat, Cream of Rice, Grits Strained Creamed Soups (No Tomato or Broccoli) Vanilla and [place] Flavored Ice Cream Sherbet Vanilla and Butterscotch Pudding (No Chocolate or Coconut) Continue 3-4 [place] Instant Breakfast, Ensure, or an Equivalent Daily. May be mixed with Dairy for Thin Milkshakes. Mireya Soft Diet Follow this diet for postoperative days 15-20 01/28 - 02/02/2018. (If you are consuming enough protein, you may stop the protein supplements). Please note: You will need extra fluids throughout the day to meet your fluid needs. Referrals: Batsheva Gomez CNP [Advanced Practice Nurse] - 01/26/18 9:30 am Wanda Veras CNP [Partnered Physician] - 02/03/18 12:30 pm Franci Davenport CNP [Advanced Practice Nurse] - 01/30/18 1:00 pm <Trip Leigh - Last Filed: 01/17/18 15:53> Hospitalist Progress Note - Encounter Date of Encounter: 01/17/18 - Exam Vitals: Temp Pulse Resp BP Pulse Ox 99.4 F 80 14 95/61 95 01/17/18 14:00 01/17/18 14:00 01/17/18 14:00 01/17/18 14:00 01/17/18 14:00 - Assessment and Plan (1) DVT prophylaxis Current Visit: No Status: Acute (2) Melena Current Visit: Yes Status: Acute (3) Hiatal hernia Current Visit: Yes Status: Chronic (4) Gastric volvulus Current Visit: Yes Status: Acute (5) Acute blood loss anemia Current Visit: Yes Status: Acute (6) COPD (chronic obstructive pulmonary disease) Current Visit: Yes Status: Chronic - Time Spent with Patient Total time spent is greater than 50% in coordination of care (as documented) at patient's floor/unit and/or counseling patient: Internal Medicine: Result - Labs CBC & Chem 7: 01/17/18 06:45 01/17/18 06:45 Labs: Short CBC 01/16/18 01/17/18 Range/Units 15:45 06:45 WBC 14.5 H (4.3-11.1) K/mcL Hgb 7.2 L 8.1 L (11.5-15.4) g/dL Hct 23.6 L 27.2 L (35.3-44.9) % Plt Count 283 (140-400) K/mcL Neutrophils # 11.5 H (1.6-8.9) K/mcL BMP 01/17/18 06:45 Sodium 130 L Potassium 4.0 Chloride 99 Carbon Dioxide 24 BUN 7 L Creatinine 0.55 L Glucose 85 Calcium 8.0 L - ABG Interpretation ABG results: PT/INR, D-dimer PT 11.4 Seconds (9.4-12.1) 01/14/18 04:46 - Attending Attestation I examined this patient and my medical decision-making was reviewed with the Resident Physician Dr. Franco. I agree with the documented findings, disposition and treatment plan as described except to the extent set forth below. Ms. Felix is a 67 year old female with CAD post CABG on plavix transferred from [facility] for coffee ground emesis and melena. She did have acute gastric volvulus for which she did go for Cm fundoplication on 01/14/18. Post op pt has been doing well. Able to tolerate PO intake ok. Gen: A, A, O x 3 Chest: Diminished BS b/l Heart: S1S2+ RRR Abd: Soft, Mild discomfort and tenderness at the incision area a/p 1. Acute Melena / Gastric voluvulus 2. s/p Cm fundoplication cont post op care as per surgery cut back on pain meds and BZDs due to pt's sleepiness 3. Acute blood anemia - post op and GI bleed PRBC as needed <Iván Franco - Last Filed: 01/17/18 15:07> (2) COPD (chronic obstructive pulmonary disease) Qualifiers: COPD type: unspecified COPD Qualified Code(s): J44.9 - Chronic obstructive pulmonary disease, unspecified <Trip Leigh - Last Filed: 01/17/18 15:53> (6) COPD (chronic obstructive pulmonary disease) Qualifiers: COPD type: unspecified COPD Qualified Code(s): J44.9 - Chronic obstructive pulmonary disease, unspecified
[2018-01-17] MEDS: *HR* OxyCODONE/APAP 7.5/325 TABLET PO PRN (17:37)
[2018-01-18 00:04] VITALS: BP 145/82
[2018-01-18 00:19] LABS: ABG Base Excess 5 mEq/L (-2 to 3); ABG HCO3 31 mEq/L (21-27); ABG Oxygen Saturation 94 % (95-98); ABG PCO2 56 mmHg (35-45); ABG PH 7.35 pH Units (7.32-7.45); ABG PO2 74 mmHg (85-104); ABG TCO2 33 mEq/L (20-26)
[2018-01-18] MEDS ORDERED: Furosemide 40 MG/4 ML VIAL IVP ONE (00:45)
[2018-01-18] MEDS: Mirtazapine 15 MG TABLET PO SCH (01:23)
[2018-01-18] MEDS: Gabapentin 400 MG CAPSULE PO SCH ×2 (01:24→08:58)
[2018-01-18] MEDS: Acetaminophen IV 1,000 MG/100 ML INFUS..BTL IVPB SCH ×2 (01:33→07:00)
[2018-01-18] MEDS: Piperacillin/Tazobactam 3.375 GM in 0.9 % Sodium Chloride Mini Bag 100 ML IVPB SCH ×2 (02:45→09:08)
[2018-01-18] MEDS: Acetylcysteine 10% 2 ML INHSOL IH SCH ×2 (03:06→09:24)
[2018-01-18] MEDS: Ipratropium/Albuterol Neb 3 ML IH SCH ×3 (03:06→11:01)
[2018-01-18] MEDS: *HR* Heparin 5,000 UNIT/ML VIAL SQ SCH (06:47)
--- NOTE | 2018-01-18 07:54 | General Surgery Progress Note ---
<Chas Hernandez R - Last Filed: 01/18/18 09:28> Date of Encounter: 01/18/18 Time of Encounter: 07:50 - Assessment and Plan (1) Gastric volvulus Status: Acute POD #4 S/P reduction of gastric volvulus, paraesophageal hernia, mireya fundoplication, mesh removal Pain controlled with medication. Patient is expressing persistent desaturations. Afebrile Plan: Continue full liquid diet Comfort care and pain management EPCD's Incentive spirometry PPI prophylaxis Dressing changes Ambulate TID with assistance Primary team has seen patient and will begin laxis for volume overload Patient is ready for discharge from surgical point, she will need to follow the dietary instructions provided until her follow up appointment on 01/26/18. (2) Smoking history Status: Chronic Continue nicotine patch daily (3) COPD (chronic obstructive pulmonary disease) Status: Chronic Continue duonebs, will increase frequency to every 4 hours incentive spirometry Per primary team she has home O2 and is ready for discharge today from medical point of view Qualifiers: COPD type: unspecified COPD Qualified Code(s): J44.9 - Chronic obstructive pulmonary disease, unspecified (4) Anemia Status: Acute Patient H/H stable on repeat labs, vitals stable Started on Venofer Qualifiers: Anemia type: iron deficiency Iron deficiency anemia type: unspecified iron deficiency Qualified Code(s): D50.9 - Iron deficiency anemia, unspecified (5) DVT prophylaxis Status: Acute EPCD's Heparin Ambulation TID Subjective Patient reports: no new complaints, still having pain, pain is less, tolerating liquids well, voiding w/o difficulty, flatus, no bowel movement, afebrile Narrative: Patient reports ongoing postsurgical pain, which is improving. She endorses intermittent anxiety. Denies nausea, vomiting, or bowel movement. Nursing reports difficulty keeping her oxygen saturation appropriate level. Objective Vital Signs - Last 8 Hours Temp Pulse Resp BP Pulse Ox 01/18/18 03:06 22 100 01/17/18 23:58 98.5 F 93 145/82 79 Intake and Output 01/17/18 01/17/18 01/18/18 15:59 23:59 07:59 Intake Total 782.5 / 782.5 980 / 980 100 / 100 Balance 782.5 / 782.5 980 / 980 100 / 100 Intake: IV Fluids 362.5 / 362.5 500 / 500 100 / 100 0.9 % Sodium Chloride 1,000 ML 400 / 400 @ 50 mls/hr IVC .Q20H [facility] Rx#: [id number] Ofirmev 1,000 mg/100 ml 1,000 100 / 100 100 / 100 100 / 100 mg In 100 ml @ 400 mls/hr IVPB Q6HR [facility] Rx#:[id number] Venofer 250 MG In 0.9 % Sodium 262.5 / 262.5 Chloride 250 ML @ 130 mls/hr IVPB DAILY [facility] Rx#:[id number] Oral 420 / 420 480 / 480 Other: Meal Lunch Dinner Percent of Meal Consumed 100% 100% # Voids 1 Blood Glucose* 170 - General physical appearance well nourished, no distress, other - Eyes PERRL (Mild pain), normal ocular movement - ENT normal mucosa, atraumatic, normocephalic, Other (Edentulous) - Neck Neck exam: trachea midline - Respiratory normal expansion wheezing: bilateral - Cardiovascular Cardiovascular exam: Present: RRR - Abdomen Abdomen: Present: bowel sounds present, soft, tender (Expected postsurgical tenderness) - Incision Incision: Present: clean and dry, intact - Integumentary no rash - Neurologic CN 2-12 grossly intact - Psychiatric oriented to time, oriented to person, oriented to place, speech is normal - Labs 01/17/18 06:45 01/17/18 06:45 - VTE Documentation of Mechanical Device: Intermittent pneumatic compression device Consult Discharge Plan - Plan Instructions: Pulmonary Edema (DC), Adult Open Mireya Fundoplication (DC), Chronic Obstructive Pulmonary Disease (DC), Pleural Effusion (DC) Additional Instructions: General Instructions After Mireya Surgery 1. No pushing, pulling, or lifting greater than 15 lbs for two weeks. 2. You may shower beginning today, but no tub baths, soaking, or swimming for 2 weeks. 3. You may resume driving when you are off narcotics and are safe to react in a car. 4. Take narcotics as directed. Do not take more narcotics then directed and do not share your narcotics with any other person. Do not drink alcohol while on narcotics. 5. Take stool softeners (Colace) or a water based laxative (Miramax) while taking narcotics. You may hold for loose stools. 6. Report any fevers greater than 100.5F, increase abdominal discomfort, drainage that looks like pus, increased redness or pain at the surgical site, or any vomiting. 7. Report any pain in the calves, shortness of breath, or rapid heartbeat. 8. Continue to take your heartburn medications until directed to stop. Do not stop them abruptly as this can cause symptoms of reflux. 9. Do not drink alcohol or carbonated beverages. 10. Do not deviate from the recommended Mireya diet below. Doing so can affect your outcomes. [place] [facility] Diet After Mireya Fundoplication Surgery This diet information is for patients who have recently had Mireya Fundoplication Surgery to correct reflux disease or to repair various types of hernias, such as hiatal hernia and intrathoracic stomach. This diet may also be used for other gastrointestinal surgeries, such as Heller myotomy and repair of achalasia. The diet will help control diarrhea, excess gas and swallowing problems, which may occur after this type of surgery. Important Steps to Keep Your Stomach From Stretching Eat small, frequent meals (six to eight per day). This will help you consume the majority of the nutrients you need without causing your stomach to feel full or distended. Drinking large amounts of fluids with meals can stretch your stomach. You may drink fluids between meals as often as you like, but limit fluids to 1/2 cup (4 fluid ounces) with meals and one cup (8 fluid ounces) with snacks. Sit upright while eating, and stay upright for 30 minutes after each meal. [place] can help food move through your digestive tract. Do not lie down after eating. Sit upright for 2 hours after your last meal or snack of the day. Eat very slowly. Take your time when eating. Take small bites and chew your food well to automotive electrician helper in swallowing and digestion. Avoid crusty breads and sticky, gummy foods, such as bananas, fresh doughy breads, rolls and doughnuts. These types of foods become sticky and difficult to swallow. Toasted breads tend to be better tolerated. Lastly, if you eat sweets, consume them at the end of your meal to avoid a group of symptoms referred to as dumping syndrome. This describes the rapid emptying of foods from the stomach to the small intestine. Sweetened beverages, candy and desserts move more rapidly and dump quickly into the intestines. This can cause symptoms of nausea, weakness, cold sweats, cramps, diarrhea and dizzy spells. Important Steps to Avoid Gas Do not drink through a straw, chew gum, or chew tobacco. These actions cause you to swallow air, which will produce excess gas in your stomach. Chew with your mouth closed and chew your food thoroughly. Avoid foods that cause stomach gas and distention. The foods include corn, dried beans, peas, lentils, onions, broccoli, cauliflower, and any food item from the cabbage family. Do not drink carbonated drinks, alcohol, citrus, or tomato products. What Will I Be Able To Eat and Drink After Surgery After Mireya Fundoplication Surgery, your diet will be advanced slowly by your surgeon. Generally, you will be on a thin/clear liquid diet for the first 10 days. Then you will advance to the full liquid diet for 4 days and eventually to a Mireya soft diet for 7 days. After any surgery, protein consumption is important for healing. To get enough protein, drink 3-4 [place] Instant Breakfast, Ensure, or equivalent daily. Reminder: Carbonated beverages (such as sodas, energy drinks, flavored carbonated water), and alcohol are not permitted for the 1st 6 to 8 weeks after surgery. After this time you may attempt to reintroduce them in small amounts. Please note: Dairy products such as milk, ice cream, and pudding may cause diarrhea in some people after surgery. You may need to avoid milk products. If so you may substitute them with lactose free beverages, such as soy, rice, lactate, or almond milk. Please be aware that each patient's tolerance to food is different. Your doctor will advance your diet depending on how well you progress after surgery. Thin Liquid Diet The first diet after Mireya Fundoplication Surgery is the thin liquids diet. Follow this diet for postoperative days 1-10 01/14- 01/23/2018. Thin liquids include: Apple, Cranberry, or Grape Juice (no citrus juice) Chicken Broth Beef Broth Flavored Gelatin (Jell-O) Decaffeinated Tea or Coffee Popsicles or [place] Ice Caffeinated Beverages Will Be Permitted Based upon Tolerance and at a later date Dairy if tolerated Thin Milkshakes (strawberry or vanilla flavored- No chocolate) Drink 3-4 [place] instant breakfast, Ensure, or equivalent daily. May be mixed with dairy for thin milkshakes Full Liquid Diet Follow this diet for postoperative days 11-14 01/24 - 01/27/2018. Full liquid diet includes anything in the thin liquid diet plus: Milk: Dairy, Soy, Rice, and [place] (No Chocolate) Cream of Wheat, Cream of Rice, Grits Strained Creamed Soups (No Tomato or Broccoli) Vanilla and [place] Flavored Ice Cream Sherbet Vanilla and Butterscotch Pudding (No Chocolate or Coconut) Continue 3-4 Tiff Instant Breakfast, Ensure, or an Equivalent Daily. May be mixed with Dairy for Thin Milkshakes. Mireya Soft Diet Follow this diet for postoperative days 15-01/28 - 02/02/2018. (If you are consuming enough protein, you may stop the protein supplements). Please note: You will need extra fluids throughout the day to meet your fluid needs. Referrals: Batsheva Gomez CNP [Advanced Practice Nurse] - 01/26/18 9:30 am Wanda Veras CNP [Partnered Physician] - 02/03/18 12:30 pm Franci Davenport CNP [Advanced Practice Nurse] - 01/30/18 1:00 pm Prescriptions: OxyCODONE/APAP 5/325 [Percocet 5/325 MG] 1 each PO Q6HR PRN 7 Days #28 tablet PRN Reason: Breakthrough Pain Amoxicillin/Clavulanate [Augmentin] 500 mg PO BIDWM 5 Days #10 tablet Docusate [Colace] 100 mg PO BID #30 capsule Furosemide [Lasix] 20 mg PO DAILY 3 Days #3 tablet Omeprazole 20 mg PO DAILY #30 tablet. <Phillip Lemus - Last Filed: 01/19/18 08:53> Date of Encounter: 01/18/18 - Assessment and Plan (1) Melena Status: Acute (2) Hiatal hernia Status: Chronic (3) GERD (gastroesophageal reflux disease) Status: Chronic Qualifiers: Esophagitis presence: without esophagitis Qualified Code(s): K21.9 - Gastro -esophageal reflux disease without esophagitis (4) Gastric volvulus Status: Acute (5) Acute blood loss anemia Status: Acute (6) COPD (chronic obstructive pulmonary disease) Status: Chronic Qualifiers: COPD type: unspecified COPD Qualified Code(s): J44.9 - Chronic obstructive pulmonary disease, unspecified Objective - Labs 01/17/18 06:45 01/17/18 06:45 - Attending Attestation I examined this patient and my medical decision-making was reviewed with the Resident Physician. I agree with the documented findings, disposition and treatment plan as described except to the extent set forth below. The patient is seen and evaluated on morning rounds with the resident. She was transiently hypoxic over the evening, however, she is saturating well now. Discharge will be based on the hospitalist evaluation of her pulmonary status. Unstable she may be discharged from the hospital. Phillip Lemus MD FACS
[2018-01-18] MEDS ORDERED: Furosemide 40 MG TABLET PO ONE (08:54)
[2018-01-18] MEDS: Loratadine 10 MG TABLET PO SCH (09:01)
[2018-01-18] MEDS: Cyanocobalamin (B-12) 1,000 MCG TABLET PO SCH (09:04)
[2018-01-18] MEDS: Folic Acid 1 MG TABLET PO SCH (09:04)
[2018-01-18] MEDS: Nicotine 21 MG PATCH.TD24 TD SCH (09:12)
[2018-01-18] MEDS: Iron Sucrose Complex 250 MG in 0.9 % Sodium Chloride 250 ML IVPB SCH (09:14)
[2018-01-18] MEDS: Metoprolol XL (24 HR) Succ 25 MG TAB.ER.24H PO SCH (09:18)
[2018-01-18] MEDS: OMEGA 3 FISH OIL PO SCH (09:18)
[2018-01-18] MEDS: Fluticasone Propionate Nasal 50 MCG/SPRAY BOTTLE NS SCH (09:20)
[2018-01-18] MEDS: Acetaminophen 325 MG TABLET PO PRN (09:22)
[2018-01-18] MEDS: *HR* OxyCODONE/APAP 7.5/325 TABLET PO PRN (09:46)
[2018-01-18] MEDS: Cholecalciferol (D-3) 1,000 UNIT TABLET PO SCH (09:46)
--- NOTE | 2018-01-18 10:58 | Discharge Summary ---
<FrancoIván Georgiana - Last Filed: 01/18/18 21:27> - NOTES TO OUTPATIENT PROVIDER Notes to Outpatient Provider: Patient was admitted for coffee-ground emesis and melena, GI consultation and general surgery consultation led to the recommendation of hiatal hernia repair. Mireya fundoplication was performed without incident. She recovered well and is being sent home on her usual medications and a course of antibiotics. Orders not resulted at time of discharge: Pending orders 01/13/18 07:12 Type and Screen [BBK] Routine 01/14/18 16:01 US anesthesia pain block [US] Routine 01/14/18 17:03 PRBC [Red Blood Cells] [BBK] Stat 01/18/18 09:32 BMP [Basic Metabolic Panel] AM 0400 Complete Blood Count [HEME] AM 0400 01/19/18 04:00 BMP [Basic Metabolic Panel] AM 0400 Complete Blood Count [HEME] AM 0400 Date of Encounter: 01/18/18 Time of Encounter: 10:55 - Discharge Diagnosis (1) Acute blood loss anemia Priority: Primary Status: Acute Assessment and Plan: Patient was anemic secondary to GI bleed and post op Mireya Fundoplication She has had no evidence of bleeding since surgery and hemoglobin has been stable over last several days Iron has been replaced as well due to concern for iron deficiency anemia Surgery has signed off and patient is stable for discharge from their point of view Patient is also stable for discharge from primary team point of view We will discharge on home medications and course of antibiotics for post op coverage (2) COPD (chronic obstructive pulmonary disease) Priority: Secondary Status: Chronic Assessment and Plan: Patient has history of COPD controlled with bronchodilators and inhaled corticosteroids She uses oxygen at home at night, but has required oxygen during the day during the hospital course I believe her increased oxygen needs have been due to increased pain and anxiety medication as well possible fluid overload secondary to intravenous fluids and blood transfusions After one dose of lasix her oxygen requirement is greatly decreased and she is oxygenating and saturating well She is stable for discharge on home medications Qualifiers: COPD type: unspecified COPD Qualified Code(s): J44.9 - Chronic obstructive pulmonary disease, unspecified Hospital course: Ms. Felix is a 67 year old female with CAD post CABG on plavix transferred from [facility] for coffee ground emesis and melena. She was recently discharged from [facility] on 12-29 - while she was admitted for chest pain she would found to be anemia at 8.4 and underwent endoscope and colonoscopy which did not give a source for bleeding . Her anemia improved with most recent HgB 9.3 - she reported compliance with her iron supplement. At this admission she described an achy epigastric pain and nausea. Reported 3 days of loose tarry black stools with multiple BM per day. On day of admission she started vomiting a dark coffee ground and presented to [facility] ED. At [facility] she was found to have elevated lactic acid 3.7 and given IVF and started on empiric vancomycin and zosyn. WBC 16.5. Her medical history included COPD, RA, OA and fibromylgia. She was admitted for melena, anemia, COPD exacerbation. She was started on supportive care and pain control, repeat labs, bronchodilator and inhaled corticosteroid therapy. Gastroenterology was consultation who consult general surgery for possible repair of gastric volvulus and hiatal hernia. Patient was scheduled for open repair of gastric volvulus and Mireya fundoplication for hiatal hernia. On 01/14/18 the procedure was completed without incident and the patient tolerated well. Patient did display anemia likely secondary to operation however possibly secondary to iron deficiency, she did receive PRBC transfusion and iron replacement. She did also have issues with pain control requiring increased pain medication and secondary to that increased oxygen requirements. However she did tolerate advancement in her diet and did have return of bowel function. Prior to discharge she was de-escalated to oral pain and nausea control and oral antibiotics. She was discharged with a stable clinical condition and labs and vitals. Discharge discussed with: patient - Time Spent with Patient Total time spent providing and/or coordinating discharge services: - Discharge Medications Prescriptions: OxyCODONE/APAP 5/325 [Percocet 5/325 MG] 1 each PO Q6HR PRN 7 Days #28 tablet PRN Reason: Breakthrough Pain Amoxicillin/Clavulanate [Augmentin] 500 mg PO BIDWM 5 Days #10 tablet Docusate [Colace] 100 mg PO BID #30 capsule Furosemide [Lasix] 20 mg PO DAILY 3 Days #3 tablet Omeprazole 20 mg PO DAILY #30 tablet.dr Home Medications: Alprazolam [Xanax] 2 mg PO TID 02/25/16 [History] Aspirin 81 mg PO DAILY 02/25/16 [History] Cholecalciferol (D-3) [Vitamin D] 2,000 unit PO DAILY 02/25/16 [History] Clopidogrel [Plavix] 75 mg PO DAILY 02/25/16 [History] Colestipol HCl [Colestid] 2 gm PO BID 02/25/16 [History] Fluticasone Propionate Nasal [Flonase] 50 mcg NS DAILY 02/25/16 [History] Ipratropium/Albuterol Sulfate [Combivent Respimat Inhal [place]] 2 puff IH DAILY 02/25/16 [History] Oxybutynin Chloride [Ditropan Xl] 10 mg PO DAILY 02/25/16 [History] hydroCHLOROthiazide [Hydrochlorothiazide] 25 mg PO DAILY 02/25/16 [History] Atorvastatin [Lipitor] 40 mg PO HS 04/27/16 [History] Cyanocobalamin (B-12) [Vitamin B12] 1,000 mcg PO DAILY 04/27/16 [History] Folic Acid 1 mg PO DAILY 04/27/16 [History] Lactose-Reduced Food [Boost] 237 ml PO TID 04/27/16 [History] Loratadine [Claritin] 10 mg PO DAILY 04/27/16 [History] [place]-3/Dha/Epa/Fish Oil [Fish Oil 1,000 mg Softgel] 1,000 mg PO DAILY 04/27/16 [History] cloNIDine HCl [CloNIDine HCl] 0.1 mg PO DAILY PRN 04/27/16 [History] ALPRAZolam [Xanax 1 MG Tablet] 1 - 2 mg PO DAILY PRN 12/25/17 [History] Cyclobenzaprine [Flexeril] 10 mg PO TID PRN 12/25/17 [History] Etanercept [Enbrel Sureclick] 50 mg SQ QWEEK 12/25/17 [History] Gabapentin [Neurontin] 800 mg PO QID 12/25/17 [History] Lisinopril [Zestril] 5 mg PO DAILY 12/25/17 [History] Methotrexate Sodium/PF [Methotrexate 25 mg/ml Vial] 20 mg IM QWEEK 12/25/17 [ History] Mirtazapine [Remeron] 45 mg PO HS 12/25/17 [History] Pantoprazole Sodium [Protonix] 40 mg PO DAILY 12/25/17 [History] Paroxetine HCl [Paxil] 40 mg PO DAILY 12/25/17 [History] Potassium Chloride [K-Tab ER] 10 meq PO BID 12/25/17 [History] amLODIPine [Norvasc] 5 mg PO DAILY 12/25/17 [History] metFORMIN [Glucophage] 500 mg PO DAILY 12/25/17 [History] Albuterol Neb [Proventil Neb] 2.5 mg IH Q6HR PRN #0 12/29/17 [Rx] Ferrous Gluconate 324 mg PO BID 30 Days #60 tablet 12/29/17 [Rx] Metoprolol XL (24 HR) Succ [Toprol Xl] 25 mg PO DAILY 30 Days #30 tab.er.24h [Rx] Amoxicillin/Clavulanate [Augmentin] 500 mg PO BIDWM 5 Days #10 tablet 01/18/18 [ Rx] Docusate [Colace] 100 mg PO BID #30 capsule 01/18/18 [Rx] Furosemide [Lasix] 20 mg PO DAILY 3 Days #3 tablet 01/18/18 [Rx] Omeprazole 20 mg PO DAILY #30 tablet. 01/18/18 [Rx] OxyCODONE/APAP 5/325 [Percocet 5/325 MG] 1 each PO Q6HR PRN 7 Days #28 tablet [Rx] Allergies/Adverse Reactions: 3 Allergy/AdvReac Type Severity Reaction Status Date / Time azithromycin Allergy See Verified 06/10/16 09:14 Comments clarithromycin [From Biaxin] Allergy See Verified 06/10/16 09:14 Comments fluconazole [From Diflucan] Allergy See Verified 06/10/16 09:14 Comments Hydromorphone [From Dilaudid] Allergy Hives Verified 06/10/16 09:14 Iodinated Contrast- Oral and Allergy See Verified 06/10/16 09:14 IV Dye Comments [Iodinated Contrast Media - IV Dye] morphine Allergy See Verified 06/10/16 09:14 Comments propoxyphene Allergy See Verified 06/10/16 09:14 [From Darvocet-N] Comments naproxen AdvReac See Verified 06/10/16 09:14 Comments Date of admission: 01/14/18 17:22 Primary care physician: PCP NONE Consults: 01/13/18 03:57 Consult to Pastoral Services [CONS] Routine Comment: 01/13/18 06:46 Consult to Gastroenterology [CONS] Routine Consulting Provider: Gastroenterology Jimena Reason for Consult: knwon patient to you, melena and coffe ground emesis Call Completed: No 01/13/18 11:36 Consult to Surgery [CONS] Routine Consulting Provider: Surgery [facility] Reason for Consult: large hiatal hernia with Noah erosions Call Completed: Yes 01/13/18 13:12 Consult to Cardiology [CONS] Routine Comment: Consulting Provider: Cardiology Jimena Reason for Consult: cardiac risk stratification for open repair of gastric volvulus and mireya fundoplication Time Notified: 13:13 Call Completed: Yes 01/16/18 10:12 Consult to Occupational Therapy [CONS] Routine Comment: Evaluate, develop and implement POC Reason for Consult: Mobilization and d/c planning Does patient have active BEDREST order?: No Is patient medically & hemodynamically stable?: Yes Patient assessed for mobility or mobilized this visit?: No Consult to Physical Therapy [CONS] Routine Comment: Evaluate, develop and implement POC Reason for Consult: Mobilization and d/c planning Does patient have active BEDREST order?: No Is patient medically & hemodynamically stable?: Yes Patient assessed for mobility or mobilized this visit?: No Discharging clinician: Iván Franco - Constitutional Vitals: Temp Pulse Resp BP Pulse Ox 98.5 F 93 22 145/82 89 01/17/18 23:58 01/17/18 23:58 01/18/18 09:26 01/17/18 23:58 01/18/18 09:26 General appearance: Present: mild distress, A&O X 3, obese Exam: Patient is in no acute distress, alert and oriented 3 Heart is in regular rate and rhythm with pacemaker, no murmur, rub, gallop Lungs clear to auscultation bilaterally, no wheezes, rhonchi, rales are present diffusely Abdomen is soft and diffusely tender, more so around surgical site, bandage in place over surgical site is clean and dry, bowel sounds present Legs are nonedematous Skin warm and dry - Patient Status Disposition: Home, Self-Care Condition: Good Functional capacity at discharge: independent ambulation Overall status at discharge: patient is progressing back to baseline - Discharge Instructions Instructions: Pulmonary Edema (DC), Adult Open Mireya Fundoplication (DC), Chronic Obstructive Pulmonary Disease (DC), Pleural Effusion (DC) Follow Up With: Batsheva Gomez CNP [Advanced Practice Nurse] - 01/26/18 9:30 am Wanda Veras CNP [Partnered Physician] - 02/03/18 12:30 pm Franci Davenport CNP [Advanced Practice Nurse] - 01/30/18 1:00 pm Additional Instructions: General Instructions After Mireya Surgery 1. No pushing, pulling, or lifting greater than 15 lbs for two weeks. 2. You may shower beginning today, but no tub baths, soaking, or swimming for 2 weeks. 3. You may resume driving when you are off narcotics and are safe to react in a car. 4. Take narcotics as directed. Do not take more narcotics then directed and do not share your narcotics with any other person. Do not drink alcohol while on narcotics. 5. Take stool softeners (Colace) or a water based laxative (Miramax) while taking narcotics. You may hold for loose stools. 6. Report any fevers greater than 100.5F, increase abdominal discomfort, drainage that looks like pus, increased redness or pain at the surgical site, or any vomiting. 7. Report any pain in the calves, shortness of breath, or rapid heartbeat. 8. Continue to take your heartburn medications until directed to stop. Do not stop them abruptly as this can cause symptoms of reflux. 9. Do not drink alcohol or carbonated beverages. 10. Do not deviate from the recommended Mireya diet below. Doing so can affect your outcomes. [facility] Diet After Mireya Fundoplication Surgery This diet information is for patients who have recently had Mireya Fundoplication Surgery to correct reflux disease or to repair various types of hernias, such as hiatal hernia and intrathoracic stomach. This diet may also be used for other gastrointestinal surgeries, such as Heller myotomy and repair of achalasia. The diet will help control diarrhea, excess gas and swallowing problems, which may occur after this type of surgery. Important Steps to Keep Your Stomach From Stretching Eat small, frequent meals (six to eight per day). This will help you consume the majority of the nutrients you need without causing your stomach to feel full or distended. Drinking large amounts of fluids with meals can stretch your stomach. You may drink fluids between meals as often as you like, but limit fluids to 1/2 cup (4 fluid ounces) with meals and one cup (8 fluid ounces) with snacks. Sit upright while eating, and stay upright for 30 minutes after each meal. [place] can help food move through your digestive tract. Do not lie down after eating. Sit upright for 2 hours after your last meal or snack of the day. Eat very slowly. Take your time when eating. Take small bites and chew your food well to switchboard operator helper in swallowing and digestion. Avoid crusty breads and sticky, gummy foods, such as bananas, fresh doughy breads, rolls and doughnuts. These types of foods become sticky and difficult to swallow. Toasted breads tend to be better tolerated. Lastly, if you eat sweets, consume them at the end of your meal to avoid a group of symptoms referred to as dumping syndrome. This describes the rapid emptying of foods from the stomach to the small intestine. Sweetened beverages, candy and desserts move more rapidly and dump quickly into the intestines. This can cause symptoms of nausea, weakness, cold sweats, cramps, diarrhea and dizzy spells. Important Steps to Avoid Gas Do not drink through a straw, chew gum, or chew tobacco. These actions cause you to swallow air, which will produce excess gas in your stomach. Chew with your mouth closed and chew your food thoroughly. Avoid foods that cause stomach gas and distention. The foods include corn, dried beans, peas, lentils, onions, broccoli, cauliflower, and any food item from the cabbage family. Do not drink carbonated drinks, alcohol, citrus, or tomato products. What Will I Be Able To Eat and Drink After Surgery After Mireya Fundoplication Surgery, your diet will be advanced slowly by your surgeon. Generally, you will be on a thin/clear liquid diet for the first 10 days. Then you will advance to the full liquid diet for 4 days and eventually to a Mireya soft diet for 7 days. After any surgery, protein consumption is important for healing. To get enough protein, drink 3-4 [place] Instant Breakfast, Ensure, or equivalent daily. Reminder: Carbonated beverages (such as sodas, energy drinks, flavored carbonated water), and alcohol are not permitted for the 1st 6 to 8 weeks after surgery. After this time you may attempt to reintroduce them in small amounts. Please note: Dairy products such as milk, ice cream, and pudding may cause diarrhea in some people after surgery. You may need to avoid milk products. If so you may substitute them with lactose free beverages, such as soy, rice, lactate, or almond milk. Please be aware that each patient's tolerance to food is different. Your doctor will advance your diet depending on how well you progress after surgery. Thin Liquid Diet The first diet after Mireya Fundoplication Surgery is the thin liquids diet. Follow this diet for postoperative days 1-10 01/14- 01/23/2018. Thin liquids include: Apple, Cranberry, or Grape Juice (no citrus juice) Chicken Broth Beef Broth Flavored Gelatin (Jell-O) Decaffeinated Tea or Coffee Popsicles or Syriac Ice Caffeinated Beverages Will Be Permitted Based upon Tolerance and at a later date Dairy if tolerated Thin Milkshakes (strawberry or vanilla flavored- No chocolate) Drink 3-4 [place] instant breakfast, Ensure, or equivalent daily. May be mixed with dairy for thin milkshakes Full Liquid Diet Follow this diet for postoperative days 11-14 01/24 - 01/27/2018. Full liquid diet includes anything in the thin liquid diet plus: Milk: Dairy, Soy, Rice, and [place] (No Chocolate) Cream of Wheat, Cream of Rice, Grits Strained Creamed Soups (No Tomato or Broccoli) Vanilla and [place] Flavored Ice Cream Sherbet Vanilla and Butterscotch Pudding (No Chocolate or Coconut) Continue 3-4 [place] Instant Breakfast, Ensure, or an Equivalent Daily. May be mixed with Dairy for Thin Milkshakes. Mireya Soft Diet Follow this diet for postoperative days 15-01/28 - 02/02/2018. (If you are consuming enough protein, you may stop the protein supplements). Please note: You will need extra fluids throughout the day to meet your fluid needs. - Diet and Activity Activity: increase activity as tolerated Diet: diabetic diet, low salt diet - VTE Documentation of Mechanical Device: Intermittent pneumatic compression device <Trip Leigh - Last Filed: 01/19/18 08:06> Orders not resulted at time of discharge: Pending orders 01/14/18 16:01 US anesthesia pain block [US] Routine 01/18/18 09:32 BMP [Basic Metabolic Panel] AM 0400 Complete Blood Count [HEME] AM 0400 Date of Encounter: 01/18/18 - Discharge Diagnosis (1) DVT prophylaxis Status: Acute (2) Melena Status: Acute (3) Hiatal hernia Status: Chronic (4) Gastric volvulus Status: Acute (5) Acute blood loss anemia Status: Acute (6) COPD (chronic obstructive pulmonary disease) Status: Chronic Qualifiers: COPD type: unspecified COPD Qualified Code(s): J44.9 - Chronic obstructive pulmonary disease, unspecified Hospital course: Ms. Felix is a 67 year old female - Time Spent with Patient Total time spent providing and/or coordinating discharge services: Date of admission: 01/14/18 17:22 Primary care physician: PCP NONE Consults: 01/13/18 03:57 Consult to Pastoral Services [CONS] Routine Comment: 01/13/18 06:46 Consult to Gastroenterology [CONS] Routine Consulting Provider: Gastroenterology Jim[facility] Reason for Consult: knwon patient to you, melena and coffe ground emesis Call Completed: No 01/13/18 11:36 Consult to Surgery [CONS] Routine Consulting Provider: Surgery [facility] Surgical Reason for Consult: large hiatal hernia with Noah erosions Call Completed: Yes 01/13/18 13:12 Consult to Cardiology [CONS] Routine Comment: Consulting Provider: Cardiology Jimena Reason for Consult: cardiac risk stratification for open repair of gastric volvulus and mireya fundoplication Time Notified: 13:13 Call Completed: Yes 01/16/18 10:12 Consult to Occupational Therapy [CONS] Routine Comment: Evaluate, develop and implement POC Reason for Consult: Mobilization and d/c planning Does patient have active BEDREST order?: No Is patient medically & hemodynamically stable?: Yes Patient assessed for mobility or mobilized this visit?: No Consult to Physical Therapy [CONS] Routine Comment: Evaluate, develop and implement POC Reason for Consult: Mobilization and d/c planning Does patient have active BEDREST order?: No Is patient medically & hemodynamically stable?: Yes Patient assessed for mobility or mobilized this visit?: No - Constitutional Vitals: Temp Pulse Resp BP Pulse Ox 98.5 F 93 22 145/82 89 01/17/18 23:58 01/17/18 23:58 01/18/18 09:26 01/17/18 23:58 01/18/18 09:26 - Attending Attestation I examined this patient and my medical decision-making was reviewed with the Resident Physician Dr. Franco. I agree with the documented findings, disposition and treatment plan as described except to the extent set forth below. Ms. Felix is a 67 year old female with CAD post CABG on plavix transferred from [facility] for coffee ground emesis and melena. She did have acute gastric volvulus for which she did go for Cm fundoplication on 01/14/18. Post op pt has been doing well. Able to tolerate PO intake well. Gen: A, A, O x 3 Chest: Diminished BS b/l Heart: S1S2+ RRR Abd: Soft, Mild discomfort and tenderness at the incision area a/p 1. Acute Melena / Gastric voluvulus 2. s/p Cm fundoplication cont post op care as per surgery cut back on pain meds and BZDs due to pt's sleepiness Diet recommendations as per surgery 3. Acute blood anemia - post op and GI bleed stable Hb Medically stable to d/c home today.
[2018-01-18] MEDS ORDERED: Aminoglycoside Consult 1 EACH MC ONE (12:45)
== END 2018-01-18 12:46 | disposition home or self-care (01) | DRG 326 ==
LOC: 3ANU → SUATTDRO 01-14 17:22
PROVIDERS: ADMIT Family Medicine; ATTEND Family Medicine

== ENCOUNTER 2018-02-18 16:01 | Inpatient (IN) ==
[2018-02-18] MEDS ORDERED: Albuterol 2.5 MG/3 ML NEBULIZER IH PRN (18:29)
[2018-02-18] MEDS ORDERED: Famotidine 20 MG/2 ML VIAL IVP ONE (18:43)
--- NOTE | 2018-02-18 18:43 | Internal Med History&Physical ---
Date of Encounter: 02/18/18 Time of Encounter: 18:41 Internal Medicine - H&P: HPI Chief complaint: diarrhea Admitted From: Home Plans for Post Hospital Care: Home History of present illness: Ms. Felix is a 67 year old female past medical history of COPD, rheumatoid arthritis, coronary artery disease, fibromyalgia who recently had hiatal hernia surgery last month when she was treated for acute blood loss anemia was transferred from [facility] because she was found to have C. difficile testing positive. Patient received vancomycin and Zosyn on her last admission. Patient is on Protonix for reflux disease. Patient complains of having diarrhea every 10-15 minutes since last night. Diarrhea is watery nonbloody however occasionally it has black tarry specs. Denies any fevers but admits to having chills. Denies any nausea or vomiting. Denies any chest pain but has generalized abdominal tenderness. Denies feeling dizzy or lightheaded. Records reviewed from [facility] which were available however no doctor's note available. Lab remarkable for white count of 20, hemoglobin of 10.9 which is at baseline, sodium 135 potassium 3.7 creatinine 0.74. C. difficile toxin positive. Stool occult positive. CT abdomen positive for thickening of large bowel suggestive of colitis. She was given a dose of Flagyl however did not receive any fluids. On interview patient in no distress lying in bed comfortably. Anxious and complaining of heartburn and some back pain. Has associated mild abdominal tenderness. Past Med Surg Social Fam HX - Past Medical History Medical history: arthritis, COPD, coronary artery disease, DVT, diabetes, fibromyalgia, GERD, hyperlipidemia, hypertension, migraine, myocardial infarction, osteoporosis, RA, renal disease Additional medical history: irregular heart Psychiatric history: anxiety, depression, panic disorder, PTSD, other - Past Surgical History Surgical History: angioplasty/stent, , cholecystectomy, coronary bypass (CABG), herniorrhaphy, hysterectomy, knee replacement, orthopedic, other , pacemaker/AICD, JAVIER/BSO, other - Social History Smoking Status: Never smoker Smokeless Tobacco Status: No Alcohol use: none Drug use: none - Family History Brother Living Status: Still Living Hx Family Cardiac Disorders: Yes (HTN) Father Living Status: Mother Living Status: Still Living Hx Family Cardiac Disorders: Yes (HTN, CAD) Hx Family Endocrine Disorder: Yes (Diabetes Mellitus) Hx Family Neurologic Disorders: Yes (Alzheimers) Sister Living Status: Still Living Hx Family Cardiac Disorders: Yes (HTN) Hx Family Cancer: Yes (skin) Internal Medicine - H&P: Meds Alprazolam [Xanax] 2 mg PO TID 02/25/16 [History] Aspirin 81 mg PO DAILY 02/25/16 [History] Cholecalciferol (D-3) [Vitamin D] 2,000 unit PO DAILY 02/25/16 [History] Clopidogrel [Plavix] 75 mg PO DAILY 02/25/16 [History] Colestipol HCl [Colestid] 2 gm PO BID 02/25/16 [History] Fluticasone Propionate Nasal [Flonase] 50 mcg NS DAILY 02/25/16 [History] Ipratropium/Albuterol Sulfate [Combivent Respimat Inhal [place]] 2 puff IH DAILY 02/25/16 [History] Oxybutynin Chloride [Ditropan Xl] 10 mg PO DAILY 02/25/16 [History] hydroCHLOROthiazide [Hydrochlorothiazide] 25 mg PO DAILY 02/25/16 [History] Atorvastatin [Lipitor] 40 mg PO HS 04/27/16 [History] Cyanocobalamin (B-12) [Vitamin B12] 1,000 mcg PO DAILY 04/27/16 [History] Folic Acid 1 mg PO DAILY 04/27/16 [History] Lactose-Reduced Food [Boost] 237 ml PO TID 04/27/16 [History] Loratadine [Claritin] 10 mg PO DAILY 04/27/16 [History] [place]-3/Dha/Epa/Fish Oil [Fish Oil 1,000 mg Softgel] 1,000 mg PO DAILY 04/27/16 [History] cloNIDine HCl [CloNIDine HCl] 0.1 mg PO DAILY PRN 04/27/16 [History] ALPRAZolam [Xanax 1 MG Tablet] 1 - 2 mg PO DAILY PRN 12/25/17 [History] Cyclobenzaprine [Flexeril] 10 mg PO TID PRN 12/25/17 [History] Etanercept [Enbrel Sureclick] 50 mg SQ QWEEK 12/25/17 [History] Gabapentin [Neurontin] 800 mg PO QID 12/25/17 [History] Lisinopril [Zestril] 5 mg PO DAILY 12/25/17 [History] Methotrexate Sodium/PF [Methotrexate 25 mg/ml Vial] 20 mg IM QWEEK 12/25/17 [ History] Mirtazapine [Remeron] 45 mg PO HS 12/25/17 [History] Pantoprazole Sodium [Protonix] 40 mg PO DAILY 12/25/17 [History] Paroxetine HCl [Paxil] 40 mg PO DAILY 12/25/17 [History] Potassium Chloride [K-Tab ER] 10 meq PO BID 12/25/17 [History] amLODIPine [Norvasc] 5 mg PO DAILY 12/25/17 [History] metFORMIN [Glucophage] 500 mg PO DAILY 12/25/17 [History] Albuterol Neb [Proventil Neb] 2.5 mg IH Q6HR PRN #0 12/29/17 [Rx] Ferrous Gluconate 324 mg PO BID 30 Days #60 tablet 12/29/17 [Rx] Metoprolol XL (24 HR) Succ [Toprol Xl] 25 mg PO DAILY 30 Days #30 tab.er.24h [Rx] Amoxicillin/Clavulanate [Augmentin] 500 mg PO BIDWM 5 Days #10 tablet 01/18/18 [ Rx] Docusate [Colace] 100 mg PO BID #30 capsule 01/18/18 [Rx] Furosemide [Lasix] 20 mg PO DAILY 3 Days #3 tablet 01/18/18 [Rx] Omeprazole 20 mg PO DAILY #30 tablet. 01/18/18 [Rx] OxyCODONE/APAP 5/325 [Percocet 5/325 MG] 1 each PO Q6HR PRN 7 Days #28 tablet [Rx] 3 Allergy/AdvReac Type Severity Reaction Status Date / Time azithromycin Allergy See Verified 06/10/16 09:14 Comments clarithromycin [From Biaxin] Allergy See Verified 06/10/16 09:14 Comments fluconazole [From Diflucan] Allergy See Verified 06/10/16 09:14 Comments Hydromorphone [From Dilaudid] Allergy Hives Verified 06/10/16 09:14 Iodinated Contrast- Oral and Allergy See Verified 06/10/16 09:14 IV Dye Comments [Iodinated Contrast Media - IV Dye] morphine Allergy See Verified 06/10/16 09:14 Comments propoxyphene Allergy See Verified 06/10/16 09:14 [From Darvocet-N] Comments naproxen AdvReac See Verified 06/10/16 09:14 Comments All Systems PM: A 10-system review of systems was performed and is negative for pertinent findings except as documented above in the HPI. - Constitutional Vitals: Temp Pulse Resp BP Pulse Ox 98 F 80 16 132/88 96 02/18/18 18:06 02/18/18 18:06 02/18/18 18:06 02/18/18 18:06 02/18/18 18:06 General appearance: Present: A&O X 3 Exam: Constitutional: Vitals as noted. Conversant. No Apparent Distress. No obvious deformities. appears anxious Eyes : Sclera white, conjunctiva clear, no lid lag, PEARLA. ENT : Grossly normal hearing. Oropharyngeal exam unremarkable. Moist mucus membranes. No JVD, no cervical lymphadenopathy. no thyromegaly or mass. Respiratory : Clear to auscultation bilaterally. No accessory muscle use, rales , rhonchi or wheezes Cardiovascular : RRR, +S1, +S2. no murmur, gallop, rubs. No chest wall tenderness GI/Abdominal : Soft, diffuse mild tenderness, Increased bowel sounds, soft, no peritoneal signs. no orgenomegaly or mass appreciated. no hernia. Musculoskeletal: No deformity, No lesions noted on back Neurological: AO X3, CN II-XII grossly intact, grossly normal motor and sensory exam. Skin: No skin rash, lesions or ulcers noted. Pych: appears anxious, occasionally tearful remember mother last year - Assessment and plan (1) C. difficile colitis Current Visit: Yes Status: Acute Assessment and plan: Leukocytosis with positive C. difficile testing. - Patient received a dose of Flagyl. No previous episodes of Cdiff. - We will start patient on vancomycin 125 orally 4 times a day - 500 mL of NS and then 100 mL maintenance - We will start patient on diet if tolerated - We will hold home antihypertensives - We will repeat C. difficile test, send stool culture. (2) GERD (gastroesophageal reflux disease) Current Visit: No Status: Chronic Assessment and plan: - pepcid BID for heartburn Qualifiers: Esophagitis presence: without esophagitis Qualified Code(s): K21.9 - Gastro -esophageal reflux disease without esophagitis (3) Hypokalemia Current Visit: No Status: Resolved Assessment and plan: - replete 40 meq potassium. - Time Spent With Patient Total time spent is greater than 50% in coordination of care (as documented) at patient's floor/unit and/or counseling patient:
[2018-02-18] MEDS ORDERED: Acetaminophen 325 MG TABLET PO PRN (19:06)
[2018-02-18] MEDS ORDERED: traMADol 50 MG TABLET PO PRN (19:07)
[2018-02-18] MEDS: Vancomycin Oral Soln 125 MG/2.5 ML UDC PO SCH ×2 (19:11→20:59)
[2018-02-18] MEDS: 0.9 % Sodium Chloride 1,000 ML IVC SCH (19:11)
[2018-02-18] MEDS: ALPRAZolam 1 MG TABLET PO PRN (19:11)
[2018-02-18] MEDS: Famotidine 20 MG TABLET PO SCH (20:09)
[2018-02-18] MEDS ORDERED: Ondansetron ODT 4 MG TAB.RAPDIS SL ONE (20:30)
[2018-02-18] MEDS: *HR* OxyCODONE/APAP 5/325 TABLET PO PRN (22:33)
[2018-02-18] MEDS: Methyl Salicylate/Menthol 28 GM TUBE TP PRN (23:30)
[2018-02-19] MEDS ORDERED: Melatonin 3 MG TABLET PO ONE (02:46)
[2018-02-19 07:45] LABS: Basophils # 0.1 K/mcL (0.0-0.2); Basophils % 0.4 %; Eosinophils # 0.9 K/mcL (0.0-0.6); Eosinophils % 6.7 %; Hematocrit 29.8 % (35.3-44.9); Hemoglobin 9.2 g/dL (11.5-15.4); Immature Granulocytes % 0.4 % (0-4); Lymphocytes # 1.2 K/mcL (0.6-4.6); Lymphocytes % 9.6 %; Mean Corpuscular HGB Conc 30.9 g/dL (31.6-35.5); Mean Corpuscular Hemoglobin 27.3 pg (28.0-33.3); Mean Corpuscular Volume 88.4 fL (83.0-100.0); Mean Platelet Volume 9.3 fL (9.4-12.4); Monocytes # 0.4 K/mcL (0.0-1.3); Monocytes % 3.1 %; Neutrophils # 10.3 K/mcL (1.6-8.9); Platelet Count 251 K/mcL (140-400); Red Blood Count 3.37 M/mcL (3.82-4.97); Red Cell Distribution Width 21.2 % (11.5-14.5); Segmented Neutrophils % 79.8 %
[2018-02-19 08:05] LABS: BUN/Creatinine Ratio 24 (6-26); Blood Urea Nitrogen 12 mg/dL (8-23); Calcium 8.7 mg/dL (8.6-10.3); Carbon Dioxide 22 mEq/L (23-29); Chloride 106 mEq/L (98-107); Glucose 102 mg/dL (70-105); Osmolality,Calculated 278 (280-300); Potassium 3.8 mEq/L (3.5-5.1); Sodium 134 mEq/L (136-145); eGFR For Non-African Americans > 60 (> 60)
[2018-02-19] MEDS: Vancomycin Oral Soln 125 MG/2.5 ML UDC PO SCH ×4 (08:17→20:40)
[2018-02-19] MEDS: ALPRAZolam 1 MG TABLET PO PRN (08:17)
[2018-02-19] MEDS: Famotidine 20 MG TABLET PO SCH ×2 (08:17→20:40)
[2018-02-19] MEDS: *HR* OxyCODONE/APAP 5/325 TABLET PO PRN ×3 (08:17→20:41)
[2018-02-19] MEDS: 0.9 % Sodium Chloride 1,000 ML IVC SCH (08:17)
[2018-02-19] MEDS: Ondansetron 4 MG/2 ML VIAL IVP PRN ×2 (09:25→14:34)
--- NOTE | 2018-02-19 11:21 | Internal Med Progress Note ---
Hospitalist Progress Note - Encounter Date of Encounter: 02/19/18 Time of Encounter: 11:18 - Subjective Interval History: Patient seen and examined this morning. No acute overnight events. Denies new complains. Diarrhea resolved. Abdominal tenderness almost resolved. No fever, chills, N/V. Still with some back pain. h/o rib fracture. - Exam Vitals: Temp Pulse Resp BP Pulse Ox 98 F 86 16 108/69 97 02/19/18 06:46 02/19/18 06:46 02/19/18 06:46 02/19/18 06:46 02/19/18 06:46 Exam: Constitutional: Vitals as noted. Conversant. No Apparent Distress. No obvious deformities. appears anxious Eyes : Sclera white, conjunctiva clear, no lid lag, PEARLA. ENT : Grossly normal hearing. Oropharyngeal exam unremarkable. Moist mucus membranes. No JVD, no cervical lymphadenopathy. no thyromegaly or mass. Respiratory : Clear to auscultation bilaterally. No accessory muscle use, rales , rhonchi or wheezes Cardiovascular : RRR, +S1, +S2. no murmur, gallop, rubs. No chest wall tenderness GI/Abdominal : Soft, diffuse mild tenderness, Increased bowel sounds, soft, no peritoneal signs. no orgenomegaly or mass appreciated. no hernia. Musculoskeletal: No deformity. No lesions noted on back. Tenderness on palpation on Rt back around 7,8,9 th rib below scapula. No lesions noted. Neurological: AO X3, CN II-XII grossly intact, grossly normal motor and sensory exam. Skin: No skin rash, lesions or ulcers noted. Pych: better mood today - Assessment and Plan (1) C. difficile colitis Current Visit: Yes Status: Acute (2) GERD (gastroesophageal reflux disease) Current Visit: No Status: Chronic (3) Hypokalemia Current Visit: No Status: Resolved - Summary of Assessment and Plan Summary of Assessment and Plan: C. difficile colitis - leukocytosis improved. Hb stable at 9.2 - No previous episodes of Cdiff. - c/w vancomycin 125 orally 4 times a day - c/w IVF maintainence - c/w diet - continue holding home antihypertensives - f/u stool culture. GERD - pepcid BID for heartburn Hypokalemia - resolved Back pain - Will get chest Xray. - Likely musculoskeletal - apply lidoderm patch. PT. - Time Spent with Patient Total time spent is greater than 50% in coordination of care (as documented) at patient's floor/unit and/or counseling patient: Internal Medicine: Result - Labs CBC & Chem 7: 02/19/18 04:00 02/19/18 04:00 Labs: Short CBC 02/19/18 Range/Units 04:00 WBC 12.9 H (4.3-11.1) K/mcL Hgb 9.2 L (11.5-15.4) g/dL Hct 29.8 L (35.3-44.9) % Plt Count 251 (140-400) K/mcL Neutrophils # 10.3 H (1.6-8.9) K/mcL BMP 02/19/18 04:00 Sodium 134 L Potassium 3.8 Chloride 106 Carbon Dioxide 22 L BUN 12 Creatinine 0.51 L Glucose 102 Calcium 8.7 Consult Discharge Plan - Plan Referrals: Franci Davenport, FUNDER [Primary Care Provider] - (2) GERD (gastroesophageal reflux disease) Qualifiers: Esophagitis presence: without esophagitis Qualified Code(s): K21.9 - Gastro- esophageal reflux disease without esophagitis
[2018-02-19] MEDS ORDERED: ALPRAZolam 0.5 MG TABLET PO PRN (14:36)
[2018-02-19] MEDS: Lactobacillus 1 EACH CAP.SPRINK PO SCH (18:29)
[2018-02-19] MEDS: ALPRAZolam 1 MG TABLET PO SCH ×2 (18:29→20:41)
[2018-02-19] MEDS: Methyl Salicylate/Menthol 28 GM TUBE TP PRN (20:41)
[2018-02-19] MEDS ORDERED: Ketorolac 15 MG/ML VIAL IVP ONE (20:53)
[2018-02-20] MEDS: 0.9 % Sodium Chloride 1,000 ML IVC SCH ×3 (00:10→08:34)
[2018-02-20 05:56] LABS: Basophils % 0.4 %; Eosinophils # 0.9 K/mcL (0.0-0.6); Eosinophils % 10.1 %; Hematocrit 30.2 % (35.3-44.9); Hemoglobin 9.2 g/dL (11.5-15.4); Immature Granulocytes % 0.2 % (0-4); Lymphocytes # 1.4 K/mcL (0.6-4.6); Lymphocytes % 16.8 %; Mean Corpuscular HGB Conc 30.5 g/dL (31.6-35.5); Mean Corpuscular Hemoglobin 27.1 pg (28.0-33.3); Mean Corpuscular Volume 88.8 fL (83.0-100.0); Monocytes # 0.4 K/mcL (0.0-1.3); Monocytes % 5.2 %; Neutrophils # 5.7 K/mcL (1.6-8.9); Platelet Count 279 K/mcL (140-400); Red Cell Distribution Width 21.3 % (11.5-14.5); Segmented Neutrophils % 67.3 %
[2018-02-20 06:22] LABS: BUN/Creatinine Ratio 19 (6-26); Blood Urea Nitrogen 8 mg/dL (8-23); Calcium 8.3 mg/dL (8.6-10.3); Carbon Dioxide 22 mEq/L (23-29); Chloride 109 mEq/L (98-107); Glucose 91 mg/dL (70-105); Osmolality,Calculated 280 (280-300); Potassium 3.9 mEq/L (3.5-5.1); Sodium 136 mEq/L (136-145); eGFR For Non-African Americans > 60 (> 60)
[2018-02-20] MEDS: ALPRAZolam 1 MG TABLET PO SCH (08:31)
[2018-02-20] MEDS: Lactobacillus 1 EACH CAP.SPRINK PO SCH (08:31)
[2018-02-20] MEDS: Famotidine 20 MG TABLET PO SCH (08:31)
[2018-02-20] MEDS: Vancomycin Oral Soln 125 MG/2.5 ML UDC PO SCH ×2 (08:32→12:08)
[2018-02-20] MEDS: *HR* OxyCODONE/APAP 5/325 TABLET PO PRN (08:32)
--- NOTE | 2018-02-20 10:52 | Discharge Summary ---
- NOTES TO OUTPATIENT PROVIDER Notes to Outpatient Provider: Patient to finish 10 day course of oral vancomycin for C. difficile colitis Orders not resulted at time of discharge: Pending orders 02/18/18 19:04 Culture,Stool [RM] Stat Date of Encounter: 02/20/18 Time of Encounter: 10:48 - Discharge Diagnosis (1) C. difficile colitis Priority: Primary Status: Acute (2) GERD (gastroesophageal reflux disease) Priority: Secondary Status: Chronic Qualifiers: Esophagitis presence: without esophagitis Qualified Code(s): K21.9 - Gastro -esophageal reflux disease without esophagitis (3) Hypokalemia Priority: Primary Status: Resolved Hospital course: Ms. Felix is a 67 year old female with past medical history ofC OPD, rheumatoid arthritis, coronary artery disease, fibromyalgia with recent hiatal hernia surgery was transferred from another facility due to C. difficile colitis with diarrhea. Patient was started on oral vancomycin. Patient improved over the course of her stay on her next day diarrhea resolved completely. Her hemoglobin remained stable while in hospital. Patient hemodynamically stable while in hospital without her blood pressure medications. Patient was seen by PT recommended home health. She did complain of some back pain at the place where he is she had a biopsy. Chest x-ray did not show any significant difference however pathological fracture is possibility. Patient already on many pain medication which we will resume at discharge. We will give a dose of Toradol before discharge. Patient will be discharged to finish her rest a 7 day course of vancomycin at home. She has an anxious affect and is on antidepressant and an anxiolytics. Of note she does complain of right sided back pain and had a chest x-ray done which showed persistent however stable cavitary lesion which is probably pneumatocele from her biopsy in past. Discharge discussed with: patient, family, nurse, social work - Time Spent with Patient Total time spent providing and/or coordinating discharge services: Greater than 30 minutes - Discharge Medications Prescriptions: Lactobacillus [Culturelle] 1 each PO DAILY 30 Days #30 cap.sprink Vancomycin Oral Soln [Firvanq] 125 mg PO QID 7 Days #28 [facility] [place] Medications: Aspirin 81 mg PO DAILY 02/25/16 [History] Cholecalciferol (D-3) [Vitamin D] 2,000 unit PO DAILY 02/25/16 [History] Clopidogrel [Plavix] 75 mg PO DAILY 02/25/16 [History] Colestipol HCl [Colestid] 2 gm PO BID 02/25/16 [History] Fluticasone Propionate Nasal [Flonase] 50 mcg NS DAILY 02/25/16 [History] Ipratropium/Albuterol Sulfate [Combivent Respimat Inhal [place]] 2 puff IH DAILY 02/25/16 [History] Oxybutynin Chloride [Ditropan Xl] 10 mg PO DAILY 02/25/16 [History] hydroCHLOROthiazide [Hydrochlorothiazide] 25 mg PO DAILY 02/25/16 [History] Atorvastatin [Lipitor] 40 mg PO HS 04/27/16 [History] Cyanocobalamin (B-12) [Vitamin B12] 1,000 mcg PO DAILY 04/27/16 [History] Folic Acid 1 mg PO DAILY 04/27/16 [History] Loratadine [Claritin] 10 mg PO DAILY 04/27/16 [History] [place]-3/Dha/Epa/Fish Oil [Fish Oil 1,000 mg Softgel] 1,000 mg PO DAILY 04/27/16 [History] ALPRAZolam [Xanax 1 MG Tablet] 1 - 2 mg PO DAILY PRN 12/25/17 [History] Etanercept [Enbrel Sureclick] 50 mg SQ QWEEK 12/25/17 [History] Gabapentin [Neurontin] 800 mg PO QID 12/25/17 [History] Lisinopril [Zestril] 5 mg PO DAILY 12/25/17 [History] Methotrexate Sodium/PF [Methotrexate 25 mg/ml Vial] 20 mg IM QWEEK 12/25/17 [ History] Mirtazapine [Remeron] 45 mg PO HS 12/25/17 [History] Paroxetine HCl [Paxil] 40 mg PO DAILY 12/25/17 [History] Potassium Chloride [K-Tab ER] 10 meq PO BID 12/25/17 [History] amLODIPine [Norvasc] 5 mg PO DAILY 12/25/17 [History] metFORMIN [Glucophage] 500 mg PO DAILY 12/25/17 [History] Albuterol Neb [Proventil Neb] 2.5 mg IH Q6HR PRN #0 12/29/17 [Rx] Ferrous Gluconate 324 mg PO BID 30 Days #60 tablet 12/29/17 [Rx] Metoprolol XL (24 HR) Succ [Toprol Xl] 25 mg PO DAILY 30 Days #30 tab.er.24h [Rx] Docusate [Colace] 100 mg PO BID #30 capsule 01/18/18 [Rx] Omeprazole 20 mg PO DAILY #30 tablet. 01/18/18 [Rx] OxyCODONE/APAP 5/325 [Percocet 5/325 MG] 1 each PO Q6HR PRN 7 Days #28 tablet [Rx] Lactobacillus [Culturelle] 1 each PO DAILY 30 Days #30 cap.sprink 02/20/18 [Rx] Vancomycin Oral Soln [Firvanq] 125 mg PO QID 7 Days #28 udc 02/20/18 [Rx] Allergies/Adverse Reactions: 3 Allergy/AdvReac Type Severity Reaction Status Date / Time azithromycin Allergy See Verified 06/10/16 09:14 Comments clarithromycin [From Biaxin] Allergy See Verified 06/10/16 09:14 Comments fluconazole [From Diflucan] Allergy See Verified 06/10/16 09:14 Comments Hydromorphone [From Dilaudid] Allergy Hives Verified 06/10/16 09:14 Iodinated Contrast- Oral and Allergy See Verified 06/10/16 09:14 IV Dye Comments [Iodinated Contrast Media - IV Dye] morphine Allergy See Verified 06/10/16 09:14 Comments propoxyphene Allergy See Verified 06/10/16 09:14 [From Darvocet-N] Comments naproxen AdvReac See Verified 06/10/16 09:14 Comments Date of admission: 02/18/18 18:12 Primary care physician: Franci Davenport CNP Discharging clinician: Frederick Bautista - Constitutional Vitals: Temp Pulse Resp BP Pulse Ox 98.6 F 82 14 127/78 95 02/20/18 07:56 02/20/18 07:56 02/20/18 07:56 02/20/18 07:56 02/20/18 07:56 General appearance: Present: A&O X 3 Exam: Constitutional: Vitals as noted. Conversant. In some Distress due to pain. No obvious deformities. appears anxious Eyes : Sclera white, conjunctiva clear, no lid lag, PEARLA. ENT : Grossly normal hearing. Oropharyngeal exam unremarkable. Moist mucus membranes. No JVD, no cervical lymphadenopathy. no thyromegaly or mass. Respiratory : Clear to auscultation bilaterally. No accessory muscle use, rales , rhonchi or wheezes Cardiovascular : RRR, +S1, +S2. no murmur, gallop, rubs. No chest wall tenderness GI/Abdominal : Soft, diffuse mild tenderness, Increased bowel sounds, soft, no peritoneal signs. no orgenomegaly or mass appreciated. no hernia. Musculoskeletal: No deformity. No lesions noted on back. Tenderness on palpation on Rt back around 7,8,9 th rib below scapula. No lesions noted. Neurological: AO X3, CN II-XII grossly intact, grossly normal motor and sensory exam. Skin: No skin rash, lesions or ulcers noted. Pych: better mood today - Patient Status Disposition: Home Health Service Condition: Fair - Discharge Instructions Follow Up With: Franci Davenport ROLLER OPERATOR [Primary Care Provider] - - Diet and Activity Activity: resume usual activities as tolerated
[2018-02-20 11:32] VITALS: BP 111/75
[2018-02-20] MEDS ORDERED: Ketorolac 15 MG/ML VIAL IVP ONE (11:36)
--- NOTE | 2018-02-20 11:56 | Physician Discharge Referral ---
Home Health/Hosp Referral Info Transfer to: Home Health - Diagnosis (1) C. difficile colitis Status: Acute (2) GERD (gastroesophageal reflux disease) Status: Chronic (3) Hypokalemia Status: Resolved - Respiratory Orders Smoking Cessation: Smoking cessation has been advised. For more information, call the [place] Tobacco Quit Line at 8-472-FVGN-NOW. - Diet/Nutrition Diet/Nutrition Orders: Regular - Activity Activity Orders: Up ad celia - Services Needed Following services are medically necessary services: Physical Therapy - Transfer Medications Prescriptions: Lactobacillus [Culturelle] 1 each PO DAILY 30 Days #30 cap.sprink Vancomycin Oral Soln [Firvanq] 125 mg PO QID 7 Days #28 [facility] [place] Home Medications: Aspirin 81 mg PO DAILY 02/25/16 [History] Cholecalciferol (D-3) [Vitamin D] 2,000 unit PO DAILY 02/25/16 [History] Clopidogrel [Plavix] 75 mg PO DAILY 02/25/16 [History] Colestipol HCl [Colestid] 2 gm PO BID 02/25/16 [History] Fluticasone Propionate Nasal [Flonase] 50 mcg NS DAILY 02/25/16 [History] Ipratropium/Albuterol Sulfate [Combivent Respimat Inhal [place]] 2 puff IH DAILY 02/25/16 [History] Oxybutynin Chloride [Ditropan Xl] 10 mg PO DAILY 02/25/16 [History] hydroCHLOROthiazide [Hydrochlorothiazide] 25 mg PO DAILY 02/25/16 [History] Atorvastatin [Lipitor] 40 mg PO HS 04/27/16 [History] Cyanocobalamin (B-12) [Vitamin B12] 1,000 mcg PO DAILY 04/27/16 [History] Folic Acid 1 mg PO DAILY 04/27/16 [History] Loratadine [Claritin] 10 mg PO DAILY 04/27/16 [History] [place]-3/Dha/Epa/Fish Oil [Fish Oil 1,000 mg Softgel] 1,000 mg PO DAILY 04/27/16 [History] ALPRAZolam [Xanax 1 MG Tablet] 1 - 2 mg PO DAILY PRN 12/25/17 [History] Etanercept [Enbrel Sureclick] 50 mg SQ QWEEK 12/25/17 [History] Gabapentin [Neurontin] 800 mg PO QID 12/25/17 [History] Lisinopril [Zestril] 5 mg PO DAILY 12/25/17 [History] Methotrexate Sodium/PF [Methotrexate 25 mg/ml Vial] 20 mg IM QWEEK 12/25/17 [ History] Mirtazapine [Remeron] 45 mg PO HS 12/25/17 [History] Paroxetine HCl [Paxil] 40 mg PO DAILY 12/25/17 [History] Potassium Chloride [K-Tab ER] 10 meq PO BID 12/25/17 [History] amLODIPine [Norvasc] 5 mg PO DAILY 12/25/17 [History] metFORMIN [Glucophage] 500 mg PO DAILY 12/25/17 [History] Albuterol Neb [Proventil Neb] 2.5 mg IH Q6HR PRN #0 12/29/17 [Rx] Ferrous Gluconate 324 mg PO BID 30 Days #60 tablet 12/29/17 [Rx] Metoprolol XL (24 HR) Succ [Toprol Xl] 25 mg PO DAILY 30 Days #30 tab.er.24h [Rx] Docusate [Colace] 100 mg PO BID #30 capsule 01/18/18 [Rx] Omeprazole 20 mg PO DAILY #30 tablet. 01/18/18 [Rx] OxyCODONE/APAP 5/325 [Percocet 5/325 MG] 1 each PO Q6HR PRN 7 Days #28 tablet [Rx] Lactobacillus [Culturelle] 1 each PO DAILY 30 Days #30 cap.sprink 02/20/18 [Rx] Vancomycin Oral Soln [Firvanq] 125 mg PO QID 7 Days #28 udc 02/20/18 [Rx] Allergies/Adverse Reactions: 3 Allergy/AdvReac Type Severity Reaction Status Date / Time azithromycin Allergy See Verified 06/10/16 09:14 Comments clarithromycin [From Biaxin] Allergy See Verified 06/10/16 09:14 Comments fluconazole [From Diflucan] Allergy See Verified 06/10/16 09:14 Comments Hydromorphone [From Dilaudid] Allergy Hives Verified 06/10/16 09:14 Iodinated Contrast- Oral and Allergy See Verified 06/10/16 09:14 IV Dye Comments [Iodinated Contrast Media - IV Dye] morphine Allergy See Verified 06/10/16 09:14 Comments propoxyphene Allergy See Verified 06/10/16 09:14 [From Darvocet-N] Comments naproxen AdvReac See Verified 06/10/16 09:14 Comments Certification: Further, I certify that my clinical findings support that this patient is homebound (i.e. absences from home require considerable and taxing effort and are for medical reasons or taoism services or infrequently or short duration when for other reasons) because: Homebound Reason: Patient requires assistance of a person or device to safely leave home Attestation: My signature below is to certify that this patient is under my care and that I, or nurse practitioner, or a physician's clinical services assistant working with me, has a face-to -face encounter with this patient.
== END 2018-02-20 14:30 | disposition home health service (06) | DRG 372 ==
LOC: 3ANU → SUATTDRO 18:12
PROVIDERS: ADMIT Internal Medicine; ATTEND Internal Medicine